=== PATIENT | female | born 1955 | race Caucasian/White ===

== ENCOUNTER 2016-12-17 10:31 | Inpatient (IN) | payer OTHER ==
[2016-12-17] MEDS ORDERED: ceFAZolin 2 GM/DEXTROSE 100 ML IV ONE (14:30)
[2016-12-17] MEDS ORDERED: PHENAZOPYRIDINE HCL 200 MG TAB PO ONE (14:30)
[2016-12-17] MEDS ORDERED: LR 1,000 ML IV ONE (14:30)
[2016-12-17 14:58] LABS: HEMATOCRIT 41.8 % (38.0-47.0); HEMOGLOBIN 13.8 g/dL (12.6-16.3); MEAN CELL HEMOGLOBIN 30.2 pg (27.9-34.1); MEAN CELL VOLUME 91.5 fL (81.5-99.8); RED BLOOD CELL COUNT 4.57 10^6/uL (4.18-5.33)
[2016-12-17 14:59] LABS: % IMMATURE GRANULYOCYTES 0.2 % (0.0-1.1); ABSOLUTE IMMATURE GRANULOCYTES 0.01 10^3/uL (0.00-0.10); ADD DIFF? NO; ADD MORPH? NO; ADD SCAN? NO; ATYPICAL LYMPHOCYTE FLAG 0 (0-99); FRAGMENT RBC FLAG 0 (0-99); LEFT SHIFT FLG 0 (0-99); LIPEMIA HEMOLYSIS FLAG 80 (0-99); MEAN PLATELET VOLUME 9.6 fL (8.7-11.7); PLATELET CLUMPS FLAG 0 (0-99); PLATELET COUNT 211 10^3/uL (150-400); RED CELL DISTRIBUTION WIDTH 13.9 % (11.5-15.2)
[2016-12-17] MEDS ORDERED: BUPIVACAINE 0.5% 30 ML SDV ONE (15:24)
[2016-12-17] MEDS ORDERED: BUPIVACAINE/EPI 0.5% 30 ML SDV ONE (15:25)
[2016-12-17] MEDS ORDERED: fentaNYL 100 MCG/2 ML INJ ONE ×8 (15:32→20:11)
[2016-12-17] MEDS ORDERED: PROPOFOL/EMULSION 500 MG/50 ML BOTTLE IV ONE (15:33)
[2016-12-17] MEDS ORDERED: LIDOCAINE HCL 160 MG/4 ML LTA KIT TP ONE (15:35)
[2016-12-17] MEDS ORDERED: ONDANSETRON 4 MG/2 ML VIAL ONE (15:36)
[2016-12-17] MEDS ORDERED: DEXAMETHASONE 4 MG/ML VIAL ONE ×2 (15:36)
[2016-12-17] MEDS ORDERED: ROCURONIUM 50 MG/5 ML VIAL ONE ×2 (15:36→16:29)
[2016-12-17] MEDS ORDERED: LIDOCAINE 2% 100 MG/5 ML SYR ONE (15:37)
[2016-12-17] MEDS ORDERED: MIDAZOLAM 2 MG/2 ML VIAL ONE (15:39)
[2016-12-17] MEDS ORDERED: HYDROmorphONE/DILAUDID 2 MG/ML INJ ONE (16:36)
[2016-12-17] MEDS ORDERED: PROPOFOL 200 MG/20 ML VIAL ONE ×2 (17:23→18:14)
[2016-12-17] MEDS ORDERED: DESFLURANE 240 ML BOTTLE IH ONE (18:20)
[2016-12-17] MEDS ORDERED: SUGAMMADEX SODIUM 200 MG/2 ML VIAL IVP ONE (18:29)
[2016-12-17] MEDS ORDERED: NALOXONE HCL 0.4 MG/ML INJ IVP PRN (18:46)
[2016-12-17] MEDS ORDERED: ONDANSETRON 4 MG/2 ML VIAL IVP PRN (18:47)
[2016-12-17] MEDS ORDERED: FENTANYL SL PRN ×2 (18:48→19:07)
[2016-12-17] MEDS ORDERED: valACYclovir 500 MG TAB PO PRN (18:48)
[2016-12-17] MEDS ORDERED: PHARMACY PAIN CONSULT 1 EA MISC PRN (18:52)
--- NOTE | 2016-12-17 18:52 | POSTOPPROG ---
Post Op Note Date of Operation: 12/17/16 Surgeon: Laura Akins Marketing Production Manager: karlene maciel Anesthesiologist: dung youssef Anesthesia: GET(General Endotracheal) Pre-op Diagnosis: colon cancer ovarian mass Post-op Diagnosis: same Indication: 61 yo with met colon cancer, ovarian mass, umbilical mass Procedure: ex lap, repair enterotomy, marcell, excise umbilical mass hysterectomy LSO Inf/Abcess present in the surg proc area at time of surgery?: Yes Depth: Organ Space EBL: 100-500 Specimen(s): abdominal wall mass, uterus, ovary, salpinx
[2016-12-17] MEDS ORDERED: HYDROmorphONE/DILAUDID 1 MG/ML SYR ONE ×4 (19:03→19:57)
[2016-12-17] MEDS ORDERED: DIAZEPAM 10 MG/2 ML SYR ONE (19:33)
[2016-12-17] MEDS: HYDROmorphONE/DILAUDID 6 MG/30 ML PCA IV PRN (20:44)
[2016-12-17] MEDS: oxyCODONE CR 30 MG TAB PO SCH (20:57)
[2016-12-17] MEDS: ZOLPIDEM TARTRATE 5 MG TAB PO PRN (21:47)
[2016-12-17] MEDS: LORazepam 1 MG TAB PO PRN (21:47)
[2016-12-17] MEDS: HYDROmorphONE/DILAUDID 4 MG TAB PO PRN ×2 (22:20→23:17)
[2016-12-17] MEDS ORDERED: hydrALAZINE 20 MG/ML VIAL IVP ONE (23:00)
[2016-12-18] MEDS: DIAZEPAM 10 MG/2 ML SYR IVP PRN ×2 (01:36→10:47)
[2016-12-18] MEDS: amLODIPine BESYLATE 5 MG TAB PO PRN ×2 (03:37→20:02)
[2016-12-18] MEDS: hydrALAZINE 20 MG/ML VIAL IVP PRN ×2 (04:19→10:47)
[2016-12-18] MEDS: ACETAMINOPHEN 325 MG TAB PO PRN ×2 (04:21→14:43)
[2016-12-18 05:26] LABS: % IMMATURE GRANULYOCYTES 0.3 % (0.0-1.1); ABSOLUTE IMMATURE GRANULOCYTES 0.03 10^3/uL (0.00-0.10); ADD DIFF? NO; ADD MORPH? NO; ADD SCAN? NO; ATYPICAL LYMPHOCYTE FLAG 0 (0-99); FRAGMENT RBC FLAG 0 (0-99); HEMATOCRIT 36.5 % (38.0-47.0); HEMOGLOBIN 12.4 g/dL (12.6-16.3); LEFT SHIFT FLG 20 (0-99); LIPEMIA HEMOLYSIS FLAG 90 (0-99); MEAN CELL HEMOGLOBIN 30.2 pg (27.9-34.1); MEAN CELL VOLUME 88.8 fL (81.5-99.8); MEAN PLATELET VOLUME 9.4 fL (8.7-11.7); PLATELET CLUMPS FLAG 0 (0-99); PLATELET COUNT 232 10^3/uL (150-400); RED BLOOD CELL COUNT 4.11 10^6/uL (4.18-5.33); RED CELL DISTRIBUTION WIDTH 13.9 % (11.5-15.2)
[2016-12-18 05:38] LABS: ANION GAP 10 mEq/L (8-16); CALCIUM 8.5 mg/dL (8.5-10.4); CARBON DIOXIDE 24 mEq/l (22-31); CHLORIDE 102 mEq/L (97-110); CREATININE 0.6 mg/dL (0.6-1.0); GLOMERULAR FILTRATION RATE > 60; GLUCOSE 194 mg/dL (70-100); POTASSIUM 3.5 mEq/L (3.5-5.2); SODIUM 136 mEq/L (134-144)
--- NOTE | 2016-12-18 06:15 | GOP ---
[f rep st] OPERATIVE REPORT DATE OF OPERATION: 12/17/2016 SURGEON: Laura Akins MD PHYSICIAN'S AIDE: Joel Ch MD, who was needed for his technical expertise and timely conclusion of the case. ANESTHESIOLOGIST: Dr. Mcdonough PREOPERATIVE DIAGNOSIS: Metastatic Colon Cancer with umbilical mass and left ovarian mass POSTOPERATIVE DIAGNOSIS: Metastatic Colon Cancer with umbilical mass and hydrosalpinx PROCEDURE PERFORMED: I performed exploratory laparotomy with lysis of adhesions , and repair of small-bowel enterotomy, and excision of abdominal wall mass. Dr. Ch assisted with all components of this portion. He also did hysterectomy with left salpingo-oophorectomy. FINDINGS: Her small bowel was adhesed to the mesh. She had a firm uterus and hydrosalpinx. SPECIMENS: Abdominal wall mass, uterus, salpinx, ovary. ESTIMATED BLOOD LOSS: 250 cc. INDICATIONS: The patient is a 61-year-old woman with metastatic colon cancer. She has bothersome abdominal wall mass because it is where her waistband hits. She is between clinical trials and would like to have this removed. She has also on her scans noted that her left ovarian mass was enlarging. For all details related to the hysterectomy and left salpingo-oophorectomy, please refer to Dr. Ch's operative note. DESCRIPTION OF PROCEDURE: The patient was brought into the operating room, placed supine on the table, and general anesthesia was administered. Her abdomen was prepped and draped in the usual sterile fashion. I excised her previous midline scar on the level of the umbilicus to the pubis. Just below her umbilicus she had a large abdominal mass. It is unclear if this was tumor or mesh or a combination of the two. Careful attention was made to dissect through the subcutaneous tissues, coming around this mass. Once we encountered Prolene suture, we then used Metzenbaum scissors. We carefully dissected with a combination of electrocautery and sharp dissection. Her linea alba were no longer apparent. We had to cut through mesh and rectus in order to enter the abdomen. Ultimately we were able to make a small incision into the peritoneal cavity. We continued our dissection. Small bowel was adhered to the abdominal wall and mesh. We performed adhesiolysis, removing several loops of bowel from the mesh. At one point I made an enterotomy. Contamination was quickly contained. I continued the dissection until this loop of bowel was free. I sewed it in a transverse fashion using 3-0 Vicryl and then I over sewed it with 3-0 Vicryl pop-offs. The lumen was patent. Attention was drawn to excise the entire abdominal wall mass. This included mesh, fascia, as well as the subcutaneous tissue. This was submitted to Pathology. The bowel was examined and no additional injuries were noted. Next, her bowel was packed cephalad and Dr. Ch was able to perform the hysterectomy and left salpingo- oophorectomy. I assisted in this portion of the case. Careful attention was made not to damage her previous anastomosis or her rectum. After his portion of the case was completed, irrigation was performed. Hemostasis was achieved. Uri was placed in the pelvis. Next, the fascia and mesh were closed with #1 Prolene using interrupted [id number] sutures. The subcutaneous tissue was closed with 0 Vicryl. Skin closed with mona. 4 x 4's and sterile dressing were applied. She tolerated the procedure well. SPECIMENS: Abdominal wall mass. /[id number]/MODL MTDD
[2016-12-18] MEDS: oxyCODONE CR 30 MG TAB PO SCH ×2 (08:21→20:03)
[2016-12-18] MEDS: HYDROmorphONE/DILAUDID 4 MG TAB PO PRN (08:54)
[2016-12-18] MEDS: NS 1,000 ML IV SCH (08:54)
--- NOTE | 2016-12-18 10:24 | SOAPPROG ---
SOAP Progress Note Assessment/Plan: Assessment: POD # 1 s/p ex lap with lysis of adhesions, repair of enterotomy, excision abdominal wall mass, hysterectomy with left salpingooophorectomy for metastatic colon cancer On chronic pain medications - appreciate pharmacy helping with this. I contacted anesthesia who will evaluate patient for epidural Hypertension - appreciate hospitalists seeing her. I had to give Hydralazine overnight Path pending Resp - cough deep breath Cards - tachycardic, likely due to pain, will monitor GI - Awaiting return of bowel function. Clears for now. Will likely advance soon Proph - allergic to heparin and lovenox so SCDS and ambulation for now CBC reviewed and appropriate for post op day #1 S: Pain is not controlled. 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
--- NOTE | 2016-12-18 10:37 | CPEKG ---
Heart Rate: 117 RR Interval: 513 P-R Interval: 196 QRSD Interval: 88 QT Interval: 272 QTC Interval: 380 P Plains: 48 QRS Plains: 20 T Wave Plains: 7 EKG Severity - BORDERLINE ECG - EKG Impression: SINUS TACHYCARDIA EKG Impression: BORDERLINE T ABNORMALITIES, ANTERIOR LEADS Electronically Signed By: David Rivera 18-Dec-2016 16:36:22
[2016-12-18] MEDS: HYDROmorphONE/DILAUDID 6 MG/30 ML PCA IV PRN (10:56)
--- NOTE | 2016-12-18 11:00 | GCON ---
[f rep st] CONSULTATION REFERRING PHYSICIAN: Laura Akins MD REASON FOR CONSULTATION: Management of hypertension and hyperglycemia. HISTORY OF PRESENT ILLNESS: The patient is a 61-year-old female with a past medical history of stage IV colon cancer diagnosed in 2010 who had an exploratory laparotomy with lysis of adhesions, repair of a small-bowel enterotomy, and excision of an abdominal wall mass with Dr. Akins and Dr. Ch. She also had a hysterectomy and a left salpingo-oophorectomy. She did well after surgery but developed significant hypertension. Her main issue is severe abdominal pain. Her pain is 10/10, even though she is using a WELLNESS TRAINER. She has a history of chronic pain with continuous narcotic use and dependency. Her pain has been difficult to manage in the postop setting. PAST MEDICAL HISTORY: 1. Stage IV colon cancer with metastases to the lung, liver, and pelvis. 2. Chronic pain with continuous narcotic use and dependency. PAST SURGICAL HISTORY: 1. Multiple abdominal ventral hernia repairs. 2. Hysterectomy, left salpingo-oophorectomy, and exploratory laparotomy performed on December 17, 2016. 3. Hemicolectomy with ileostomy take-down. 4. Placement of hepatic arterial pump for chemotherapy. No longer in place. SOCIAL HISTORY: She is originally from [place]. She is . She has a daughter who lives in the [place] area who is very supportive. She does not use alcohol, tobacco, or drug use. She lives independently. 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 FAMILY HISTORY: Her mom is alive; she suffered a stroke. Her father from Pick disease. ALLERGIES: Heparin. HOME MEDICATIONS: Include Norvasc 5 mg daily p.r.n., Valtrex 500 mg t.i.d. p.r.n., Ambien 10 mg p.o. q.h.s. p.r.n., Ativan 1 mg daily p.r.n., Ritalin 10 mg p.o. b.i.d., Dilaudid 8 to 16 mg p.o. q.6 hours, Oxy IR 30-60 mg q.6 hours p.r.n., OxyContin 60 mg p.o. b.i.d., fentanyl spray 1200 sublingual q.i.d. p.r.n. REVIEW OF SYSTEMS: A 10-point review of system was performed and was negative other than pertinent positives in the HPI and past medical history. PHYSICAL EXAMINATION: GENERAL: The patient is a 61-year-old female who appears very uncomfortable but falls asleep frequently during my interview. VITAL SIGNS: Blood pressure is 189/90, heart rate is 125, respiratory rate is 14, O2 sats on 3 L are 95%, temperature is 36.9 Celsius. EYES: Pupils are equal and reactive. EOMs are intact. ENT: She has normal ears. Hearing is intact. NECK: Trachea is midline. CARDIOVASCULAR: She is tachycardic but in a regular rhythm. No murmurs, rubs, or gallops noted. CHEST: Lungs normal respiratory effort. Clear without rales or rhonchi. ABDOMEN: Tender. Hypoactive bowel sounds noted throughout. SKIN: No rashes or ulcers. MUSCULOSKELETAL: Not evaluated. PSYCHIATRIC: She is alert and oriented to her situation but falls asleep throughout my conversation with her. DATA REVIEWED: Chemistry panel shows a sodium of 136, potassium of 3.5, CO2 of 24, BUN of 10, creatinine of 0.6, glucose of 194. CBC: White blood cell count is 10.96, hemoglobin 12.4, hematocrit of 36.5, platelet count of 232. ASSESSMENT/PLAN: 1. Hypertension: P.r.n. hydralazine has been ordered. I suspect this is secondary to her pain. Will continue to follow. 2. Tachycardia: Will get a 12-lead EKG to further evaluate. Also suspect she may be having some withdrawal from her pain medications, even though on a WELLNESS TRAINER and is getting her oral medications. She is currently not on her fentanyl spray. With history of cancer, could consider a CTA to rule out a pulmonary emboli if this is persistent. 3. Chronic pain with continuous narcotic use and dependency. Pharmacy has been asked to do an evaluation of her pain to help control it. In addition, Anesthesia has been notified to see if they can do an epidural to help control her pain. 4. Fever. Had one elevated temperature. Will continue monitoring. 5. Hyperglycemia. Most likely stress induced. Will check glucoses and check a hemoglobin A1C. 6. Deep vein thrombosis prophylaxis. She has a heparin allergy. Will order SCDs. 7. Stage IV colon cancer. She is following up with Oncology and is in a trial at this time. Thank you for this consultation. The hospitalists team will continue to follow her during her stay. /[id number]/MODL MTDD
[2016-12-18] MEDS ORDERED: fentaNYL 100 MCG/2 ML INJ ONE (11:09)
[2016-12-18] MEDS ORDERED: ROPIVACAINE HCL 20 MG/10 ML INJ EP ONE (11:12)
[2016-12-18] MEDS ORDERED: ONDANSETRON 4 MG/2 ML VIAL IVP PRN (12:10)
[2016-12-18] MEDS ORDERED: NARCOTIC DRIP BAG-TOTAL ALL TYPES EP PRN (12:10)
[2016-12-18] MEDS ORDERED: NALOXONE HCL 0.4 MG/ML INJ IVP PRN (12:10)
[2016-12-18] MEDS ORDERED: D50W 25 GM/50 ML SYR IVP PRN (12:32)
[2016-12-18] MEDS: DC NARCS MISC SCH (13:44)
[2016-12-18] MEDS: REGARDING ANTICOAG MISC SCH (13:44)
[2016-12-18] MEDS ORDERED: CALCIUM CARBONATE 500 MG CHEWABLE TAB PO PRN (15:51)
[2016-12-18] MEDS ORDERED: DEXMEDETOMIDINE HCL 400 MCG in NS 100 ML IV SCH (16:00)
[2016-12-18] MEDS: PANTOPRAZOLE SODIUM 40 MG in NS 100 ML IV SCH (16:28)
--- NOTE | 2016-12-18 16:37 | HOSPPROG ---
Hospitalist Progress Note Assessment/Plan: Patient seen and examined. Appears obtunded and writhing in pain. PE: fever, uncomfortable; abd soft, non-tender Discussed with Dr Akins. Impression: - s/p FLAQUITA, enterotomy repair, hysterectomy, oophorectomy - uncontrolled pain - SIRS, possible source abdominal - very high narcotic requirement - high risk for VTE Plan: - continue SDU level care - start precedex - start empiric Invanz - low threshold for CT scan - cont IVF - continue epidural - start low dose Xarelto for ppx (allergy to heparin) 35 mins direct patient care, face to face time spent from 3:40 to 3:15 Objective: Vital Signs Temp Pulse Resp BP Pulse Ox 37.9 C 119 H 22 H 159/74 H 94 12/18/16 15:44 12/18/16 15:44 12/18/16 15:44 12/18/16 15:44 12/18/16 15:44 Laboratory Results 12/18/16 05:15 12/18/16 05:15 12/17/16 12/18/16 12/19/16 05:59 05:59 05:59 Intake Total 2425 725 Output Total 4989 900 Balance -410 -175 ICD10 Worksheet Patient Problems: Problems Problem Status Onset Abdominal pain Acute Vomiting Acute
[2016-12-18] MEDS: ERTAPENEM 1 GM in NS 100 ML IV SCH (17:30)
[2016-12-18] MEDS: INSULIN LISPRO 100 UNIT/ML SC SCH (17:41)
[2016-12-18] MEDS: KETOROLAC 15 MG/1 ML SDV IVP SCH (17:42)
[2016-12-18] MEDS: LORazepam 1 MG TAB PO PRN (20:03)
[2016-12-18] MEDS: ZOLPIDEM TARTRATE 5 MG TAB PO PRN (20:03)
[2016-12-18] MEDS: HYDROmorph 10MCG/ML&BUP 0.1% in 100ML NS EP SCH (20:12)
[2016-12-19] MEDS: KETOROLAC 15 MG/1 ML SDV IVP SCH ×3 (00:55→11:29)
[2016-12-19 04:21] LABS: % IMMATURE GRANULYOCYTES 0.3 % (0.0-1.1); ABSOLUTE IMMATURE GRANULOCYTES 0.02 10^3/uL (0.00-0.10); ADD DIFF? NO; ADD MORPH? NO; ADD SCAN? NO; ATYPICAL LYMPHOCYTE FLAG 0 (0-99); FRAGMENT RBC FLAG 0 (0-99); HEMATOCRIT 27.9 % (38.0-47.0); HEMOGLOBIN 9.3 g/dL (12.6-16.3); LEFT SHIFT FLG 10 (0-99); LIPEMIA HEMOLYSIS FLAG 80 (0-99); MEAN CELL HEMOGLOBIN 30.7 pg (27.9-34.1); MEAN CELL HEMOGLOBIN CONCENTR. 33.3 g/dL (32.4-36.7); MEAN CELL VOLUME 92.1 fL (81.5-99.8); MEAN PLATELET VOLUME 8.9 fL (8.7-11.7); PLATELET CLUMPS FLAG 30 (0-99); PLATELET COUNT 205 10^3/uL (150-400); RED BLOOD CELL COUNT 3.03 10^6/uL (4.18-5.33); RED CELL DISTRIBUTION WIDTH 14.6 % (11.5-15.2)
[2016-12-19 04:52] LABS: ALANINE AMINOTRANSFERASE 50 IU/L (9-52); ALBUMIN 2.6 g/dL (3.5-5.0); ALKALINE PHOSPHATASE 91 IU/L (38-126); ANION GAP 6 mEq/L (8-16); ASPARTATE AMINOTRANSFERASE 29 IU/L (14-46); BILIRUBIN,TOTAL 0.4 mg/dL (0.1-1.4); CALCIUM 8.1 mg/dL (8.5-10.4); CARBON DIOXIDE 27 mEq/l (22-31); CHLORIDE 109 mEq/L (97-110); CREATININE 0.7 mg/dL (0.6-1.0); GLOMERULAR FILTRATION RATE > 60; GLUCOSE 82 mg/dL (70-100); POTASSIUM 3.6 mEq/L (3.5-5.2); SODIUM 142 mEq/L (134-144); TOTAL PROTEIN 4.9 g/dL (6.3-8.2)
[2016-12-19] MEDS: HYDROmorph 10MCG/ML&BUP 0.1% in 100ML NS EP SCH ×3 (06:27→22:10)
--- NOTE | 2016-12-19 07:18 | SOAPPROG ---
SOAP Progress Note Assessment/Plan: Assessment: 61yo F POD #2 s/p excision of umbilical mass and open lysis of adhesions, hysterectomy, LSO pain improved encouraged ambulation. PT/OT clear liquids incision CDI dressing if needed ok to tx to floor from surgical perspective Objective: Vital Signs Temp Pulse Resp BP Pulse Ox 37.0 C 102 H 18 122/67 H 93 12/19/16 04:00 12/19/16 04:00 12/19/16 04:00 12/19/16 04:00 12/19/16 04:00 Laboratory Results 12/19/16 03:54 12/19/16 03:54 12/18/16 12/19/16 12/20/16 05:59 05:59 05:59 Intake Total 6007 6136 Output Total 1722 6333 Balance -410 -37 ICD10 Worksheet Patient Problems: Problems Problem Status Onset Abdominal pain Acute Vomiting Acute
[2016-12-19] MEDS: INSULIN LISPRO 100 UNIT/ML SC SCH ×3 (07:53→18:21)
[2016-12-19] MEDS: ERTAPENEM 1 GM in NS 100 ML IV SCH (08:45)
[2016-12-19] MEDS: oxyCODONE CR 30 MG TAB PO SCH ×2 (08:49→21:26)
[2016-12-19] MEDS: PANTOPRAZOLE SODIUM 40 MG in NS 100 ML IV SCH (08:52)
[2016-12-19] MEDS: REGARDING ANTICOAG MISC SCH (08:53)
[2016-12-19] MEDS: DC NARCS MISC SCH (08:53)
[2016-12-19] MEDS ORDERED: RIVAROXABAN 10 MG TAB PO SCH (09:00)
[2016-12-19] MEDS ORDERED: FONDAPARINUX SODIUM 2.5 MG/0.5 ML SYR SC SCH (09:15)
--- NOTE | 2016-12-19 09:23 | HOSPPROG ---
Hospitalist Progress Note Assessment/Plan: Metastatic colon cancer with h/o hemicolectomy and ileostomy takedown - s/p FLAQUITA , hysterectomy and left salpingo-oopherectomy, POD #2. Post-op management per surgery. -Advance care -PT/OT, pt strongly urged to participate Chronic pain with continuous opioid dependence with poor post-op pain control - Came to SDU last night due to alternating obtundation / agitation, which is resolved. She did not require Precedex. Improved pain control with PCEA- dilaudid and bupivicaine, outpt Oxycontin and Oxycodone doses and Toradol. -Add low dose Neurontin Fever - treated empirically with Ertapenem, will continue while awaiting BCx's Hypertension - likely hastened by poor pain control yesterday. Improved today. -Cont Amlodipine, PRN Hydralazine Stress induced hyperglycemia - improved. DVT PPLX - Pt high risk with post-op state and cancer hx. Xarelto d/c'd after discussing with anesthesia given presence of epidural catheter and bleeding risk. 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 Reviewed with anesthesia and they do not recommend any NOAC's or Arixtra. They feel ASA would be safe. Cont SCD's. Encourage ambulation. Full code Dispo - cont inpt, return to med/surg Subjective: Pt reports high pain level, but vitals are improved. She is relaxed , alert and oriented. Tmax 38.6. +abdominal pain, no flatus or BM. No N/V. Objective: Vital Signs Temp Pulse Resp BP Pulse Ox 37.0 C 102 H 18 122/67 H 93 12/19/16 04:00 12/19/16 04:00 12/19/16 04:00 12/19/16 04:00 12/19/16 04:00 Laboratory Results 12/19/16 03:54 12/19/16 03:54 12/18/16 12/19/16 12/20/16 05:59 05:59 05:59 Intake Total 2425 2688 Output Total 5360 0495 Balance -410 -37 - Physical Exam Constitutional: no apparent distress Eyes: PERRL Ears, Nose, Mouth, Throat: moist mucous membranes Cardiovascular: regular rate and rhythym Respiratory: no respiratory distress, clear to auscultation Gastrointestinal: normoactive bowel sounds, other (soft, diffusely TTP, pain out of proportion to exam, no r/r/g) Skin: warm Musculoskeletal: full muscle strength Neurologic: AAOx3 Psychiatric: anxious ICD10 Worksheet Patient Problems: Problems Problem Status Onset Abdominal pain Acute Vomiting Acute
[2016-12-19] MEDS ORDERED: POLYETHYLENE GLYCOL 3350 17 GM PKT PO PRN (09:26)
[2016-12-19 09:35] LABS: HEMOGLOBIN A1C 5.8 % (4.0-6.0)
[2016-12-19] MEDS: ASPIRIN 325 MG TAB PO SCH (11:29)
[2016-12-19] MEDS: GABAPENTIN 100 MG CAP PO SCH ×2 (15:15→21:26)
[2016-12-19] MEDS: ZOLPIDEM TARTRATE 5 MG TAB PO PRN (21:26)
[2016-12-19] MEDS: LORazepam 1 MG TAB PO PRN (21:26)
[2016-12-20] MEDS: NS 1,000 ML IV SCH ×3 (03:15→21:16)
[2016-12-20 06:26] LABS: % IMMATURE GRANULYOCYTES 0.4 % (0.0-1.1); ABSOLUTE IMMATURE GRANULOCYTES 0.02 10^3/uL (0.00-0.10); ADD DIFF? NO; ADD MORPH? NO; ADD SCAN? NO; ATYPICAL LYMPHOCYTE FLAG 10 (0-99); FRAGMENT RBC FLAG 0 (0-99); HEMATOCRIT 26.4 % (38.0-47.0); HEMOGLOBIN 8.6 g/dL (12.6-16.3); LEFT SHIFT FLG 0 (0-99); LIPEMIA HEMOLYSIS FLAG 80 (0-99); MEAN CELL HEMOGLOBIN 30.4 pg (27.9-34.1); MEAN CELL HEMOGLOBIN CONCENTR. 32.6 g/dL (32.4-36.7); MEAN CELL VOLUME 93.3 fL (81.5-99.8); MEAN PLATELET VOLUME 9.2 fL (8.7-11.7); PLATELET CLUMPS FLAG 0 (0-99); PLATELET COUNT 175 10^3/uL (150-400); RED BLOOD CELL COUNT 2.83 10^6/uL (4.18-5.33); RED CELL DISTRIBUTION WIDTH 14.3 % (11.5-15.2)
--- NOTE | 2016-12-20 06:46 | SOAPPROG ---
SOAP Progress Note Assessment/Plan: Assessment: Plan: POD#3 s/p ex-lap, FLAQUITA, adhesiolysis and hyst - Pain an issue, doesnt appear like the epidural is working (other than numbing her legs) defer to anesthesia, but would shut off in favor of IV narcotics. - Tolerating clears, endorses some flatus. Will see how she does htis AM but if continues to progress, would ADAT - Needs to get OOB and ambulate, using epidural as excuse that she cannot. 12/20/16 06:44 Objective: Vital Signs Temp Pulse Resp BP Pulse Ox 36.9 C 83 16 129/77 H 96 12/20/16 04:00 12/20/16 06:26 12/20/16 06:26 12/20/16 06:26 12/20/16 06:26 Laboratory Results 12/20/16 06:08 12/19/16 03:54 12/19/16 12/20/16 12/21/16 05:59 05:59 05:59 Intake Total 8934 803 Output Total 7470 0672 Balance -37 -1750 ICD10 Worksheet Patient Problems: Problems Problem Status Onset Abdominal pain Acute Vomiting Acute
[2016-12-20] MEDS: GABAPENTIN 100 MG CAP PO SCH ×3 (08:56→21:15)
[2016-12-20] MEDS: ASPIRIN 325 MG TAB PO SCH (08:56)
[2016-12-20] MEDS: oxyCODONE CR 30 MG TAB PO SCH ×2 (08:56→21:15)
[2016-12-20] MEDS: PANTOPRAZOLE SODIUM 40 MG TAB PO SCH (08:56)
[2016-12-20] MEDS: ERTAPENEM 1 GM in NS 100 ML IV SCH (08:57)
[2016-12-20] MEDS: INSULIN LISPRO 100 UNIT/ML SC SCH ×3 (08:58→18:31)
[2016-12-20] MEDS: REGARDING ANTICOAG MISC SCH (09:00)
[2016-12-20] MEDS: DC NARCS MISC SCH (09:25)
--- NOTE | 2016-12-20 10:45 | SOAPPROG ---
CARTER Progress Note Assessment/Plan: Assessment: Currently rating pain as a 9/10. Not yet working with PT/OT. She has a level of L2-3 so I suspect epidural is probably contributing to her pain control as she is getting less oral medications than she takes at home. Prior to admission she endorsed continuous pain of 8/10. Plan: I will turn the epidural rate up to 10cc/hr. Discussed replacing epidural but given the challenge in placing the first, I am hesitant to pull and replace. I would encourage administration of PRN oxycodone-consider making this scheduled 60mg Q6 Hrs-I see she got it this morning. At a minimum she should be getting her home dose of OxyContin (60 mg BID) and oxycodone. Encourage multimodel analgesia with acetaminophen and Celebrex unless contraindicated. Encouraged working with PT/OT. Subjective: Patient seen and examined on the floor. Doing about the same as yesterday. Currently rating pain a 9/10 but appearing in no distress. She doesn't believe epidural to be contributing significantly to her pain relief but on my evaluation last night-she received a bolus off the epidural pump with some relief that "allowed her to sleep". Objective: Vital Signs Temp Pulse Resp BP Pulse Ox 37.1 C 88 18 127/64 H 91 L 12/20/16 08:00 12/20/16 08:00 12/20/16 08:00 12/20/16 08:00 12/20/16 08:00 Laboratory Results 12/20/16 06:08 12/19/16 03:54 12/19/16 12/20/16 12/21/16 05:59 05:59 05:59 Intake Total 0178 879 Output Total 8750 4026 Balance -37 -1750 Physical Exam - Physical Exam Neuro/Psych: motor weakness (L2-3 BILAT LEVEL) ICD10 Worksheet Patient Problems: Problems Problem Status Onset Abdominal pain Acute Vomiting Acute Physical Exam - Physical Exam General Appearance: no apparent distress Neuro/Psych: other
[2016-12-20] MEDS: HYDROmorph 10MCG/ML&BUP 0.1% in 100ML NS EP SCH ×3 (12:34→21:15)
[2016-12-20] MEDS ORDERED: oxyCODONE IR 5 MG TAB PO PRN (14:01)
--- NOTE | 2016-12-20 14:06 | HOSPPROG ---
Hospitalist Progress Note Assessment/Plan: #Acute on chronic pain -complicated by oversedation earlier in stay -spoke with Anesthesiology today. Increase in epidural is minimal and should not contribute. They will try to wean off epidural tomorrow -cont home Oxycontin. Daughter very concerned with oversedation; change oxy to PRN. No Fentanyl spray #Metastatic colon cancer: h/o hemicolectomy and take down. s/p FLAQUITA, hysterectomy , left salpingo-oopherectemy -needs to ambulate #Fever: afebrile >48hr. Blood culture negative. Cont Ertapenem #Accelerated HTN: pain contributing. Cont home meds #Diet: clear #DVT ppx: SCDS #Disp: warrants inpt admission with acute on chronic pain. Cont IV abx Subjective: feel like a preeti truck hit her in stomach Objective: Vital Signs Temp Pulse Resp BP Pulse Ox 36.9 C 94 18 125/85 H 94 12/20/16 12:00 12/20/16 12:00 12/20/16 12:00 12/20/16 12:00 12/20/16 12:00 Laboratory Results 12/20/16 06:08 12/19/16 03:54 12/19/16 12/20/16 12/21/16 05:59 05:59 05:59 Intake Total 2688 700 Output Total 3152 2860 1150 Balance -37 1750 -1150 - Physical Exam Constitutional: no apparent distress Eyes: PERRL Ears, Nose, Mouth, Throat: moist mucous membranes Cardiovascular: regular rate and rhythym, no murmur, rub, or gallop Respiratory: no respiratory distress Gastrointestinal: other (abdominal incision stapled. C/D/I. diffuse TTP) Genitourinary: no bladder fullness, solares in urethra Skin: warm Musculoskeletal: full muscle strength Neurologic: CN II-XII Intact, other (min sensation to touch over legs) ICD10 Worksheet Patient Problems: Problems Problem Status Onset Abdominal pain Acute Vomiting Acute
--- NOTE | 2016-12-20 16:42 | SOAPPROG ---
CARTER Progress Note Assessment/Plan: Assessment: doing okay this p.m. Plan: advance diet 12/20/16 16:42 Objective: Vital Signs Temp Pulse Resp BP Pulse Ox 37.2 C 84 18 134/68 H 95 12/20/16 16:35 12/20/16 16:35 12/20/16 16:35 12/20/16 16:35 12/20/16 16:35 Laboratory Results 12/20/16 06:08 12/19/16 03:54 12/19/16 12/20/16 12/21/16 05:59 05:59 05:59 Intake Total 0220 700 Output Total 9870 4418 4564 Balance -37 -1750 -1150 ICD10 Worksheet Patient Problems: Problems Problem Status Onset Abdominal pain Acute Vomiting Acute
[2016-12-20] MEDS: LORazepam 1 MG TAB PO PRN (22:30)
[2016-12-20] MEDS: ZOLPIDEM TARTRATE 5 MG TAB PO PRN (22:30)
[2016-12-21] MEDS: HYDROmorph 10MCG/ML&BUP 0.1% in 100ML NS EP SCH ×3 (03:39→16:56)
[2016-12-21] MEDS: NS 1,000 ML IV SCH (06:17)
[2016-12-21 06:30] LABS: HEMATOCRIT 24.9 % (38.0-47.0); HEMOGLOBIN 8.2 g/dL (12.6-16.3); MEAN CELL HEMOGLOBIN 30.4 pg (27.9-34.1); MEAN CELL HEMOGLOBIN CONCENTR. 32.9 g/dL (32.4-36.7); MEAN CELL VOLUME 92.2 fL (81.5-99.8); RED BLOOD CELL COUNT 2.7 10^6/uL (4.18-5.33); RED CELL DISTRIBUTION WIDTH 13.6 % (11.5-15.2)
[2016-12-21 07:11] LABS: ANION GAP 4 mEq/L (8-16); CALCIUM 7.8 mg/dL (8.5-10.4); CARBON DIOXIDE 28 mEq/l (22-31); CHLORIDE 108 mEq/L (97-110); CREATININE 0.7 mg/dL (0.6-1.0); GLOMERULAR FILTRATION RATE > 60; GLUCOSE 93 mg/dL (70-100); POTASSIUM 3.3 mEq/L (3.5-5.2); SODIUM 140 mEq/L (134-144)
[2016-12-21] MEDS: INSULIN LISPRO 100 UNIT/ML SC SCH ×3 (07:51→19:10)
[2016-12-21] MEDS: oxyCODONE CR 30 MG TAB PO SCH ×2 (09:07→21:13)
[2016-12-21] MEDS: GABAPENTIN 100 MG CAP PO SCH ×3 (09:07→21:45)
[2016-12-21] MEDS: ASPIRIN 325 MG TAB PO SCH (09:07)
[2016-12-21] MEDS: ERTAPENEM 1 GM in NS 100 ML IV SCH (09:08)
[2016-12-21] MEDS: PANTOPRAZOLE SODIUM 40 MG TAB PO SCH (09:08)
[2016-12-21] MEDS: REGARDING ANTICOAG MISC SCH (09:11)
--- NOTE | 2016-12-21 14:00 | SOAPPROG ---
SOAP Progress Note Assessment/Plan: Assessment: POD # 4 S/P excision of periumbilical mass, abdominal hysterectomy with left salpingoophorectomy for left adnexal mass which was a hydrosalpinx. Likely tumor on posterior cervix extending into vagina. Pathology pending. Savanna has made slow progress secondary to pain control issues. Plan: 12/21/16 13:56 I think we can discontinue epidural and switch to oral analgesia so she can ambulate. Advance diet. Subjective: Pain controlled with epidural. Patient hungry. Had insensible bowel movement. Has not been out of bed yet. Continues to pass flatus. Objective: Vital Signs Temp Pulse Resp BP Pulse Ox 36.8 C 86 18 142/79 H 95 12/21/16 11:39 12/21/16 11:39 12/21/16 11:39 12/21/16 11:39 12/21/16 11:39 Laboratory Results 12/21/16 06:18 12/21/16 06:18 12/20/16 12/21/16 12/22/16 05:59 05:59 05:59 Intake Total 700 3500 Output Total 2450 4500 1350 Balance -1750 -1000 -1350 - Pending Discharge Pending Discharge Within 48 Hours: Yes Pending Discharge Date: 12/23/16 Pending Discharge Time: 11:00 Physical Exam - Physical Exam General Appearance: WD/WN, alert, no apparent distress Respiratory: lungs clear Cardiac/Chest: regular rate, rhythm Abdomen: normal bowel sounds, soft (Incision clean, dry, and intact.) ICD10 Worksheet Patient Problems: Problems Problem Status Onset Colon cancer Acute Hydrosalpinx Acute Abdominal pain Acute Vomiting Acute - ICD10 Problem Qualifiers (1) Hydrosalpinx (2) Colon cancer Qualifiers: Colon location: sigmoid Qualified Code(s): C18.7 - Malignant neoplasm of sigmoid colon
--- NOTE | 2016-12-21 14:30 | SOAPPROG ---
SOAP Progress Note Assessment/Plan: Assessment: doing okay this p.m. Plan: advance diet 12/20/16 16:42 12/21/16 14:29 COMFORTABLE / AFEBRILE/ WOUND OKAY/ HAS BEEN IMMOBILE SECONDARY TO THE EPIDURAL / POSITIVE BMS PLAN IS TO WEAN OFF THE EPIDURAL AND RESTORE A PAIN MEDICINES AND ADVANCE HER DIET Objective: Vital Signs Temp Pulse Resp BP Pulse Ox 36.8 C 92 18 151/85 H 94 12/21/16 11:39 12/21/16 14:08 12/21/16 14:08 12/21/16 14:08 12/21/16 14:08 Laboratory Results 12/21/16 06:18 12/21/16 06:18 12/20/16 12/21/16 12/22/16 05:59 05:59 05:59 Intake Total 700 3500 Output Total 2450 4500 1350 Balance -1750 -1000 -1350 ICD10 Worksheet Patient Problems: Problems Problem Status Onset Colon cancer Acute Hydrosalpinx Acute Abdominal pain Acute Vomiting Acute
--- NOTE | 2016-12-21 14:58 | SOAPPROG ---
SOAP Progress Note Assessment/Plan: Assessment: Subjectively much better today. Agrees to begin titrating down epidural and ramping up PT/OT as tolerated. Plan: Will decrease epidural rate to 6cc/hr and decrease bolus freq to Q20-min PRN. I ordered increase in IR Oxycodone Q6 HR PRN from 60mg to 75mg. Consider making this scheduled as she takes 60mg of Oxycodone PRN at home in addition to the 60mg of Oxycontin BID-will defer that decision to primary team. Continue ASA for prophylaxis, continue Celebrex and gabapentin. Ok with low dose APAP. Intend to d/c epidural tomorrow or Thursday. Subjective: Patient seen and examined this afternoon on floor. In better spirits today. Working with therapy at time of visit. Endorses "numb legs" better pain control overnight. Objective: Vital Signs Temp Pulse Resp BP Pulse Ox 36.8 C 92 18 151/85 H 94 12/21/16 11:39 12/21/16 14:08 12/21/16 14:08 12/21/16 14:08 12/21/16 14:08 Laboratory Results 12/21/16 06:18 12/21/16 06:18 12/20/16 12/21/16 12/22/16 05:59 05:59 05:59 Intake Total 700 3500 Output Total 2450 4500 1350 Balance -1750 -1000 -1350 Current epidural running at 10cc/hr with 5 cc Q15min PRN bolus. ICD10 Worksheet Patient Problems: Problems Problem Status Onset Colon cancer Acute Hydrosalpinx Acute Abdominal pain Acute Vomiting Acute
--- NOTE | 2016-12-21 15:05 | GOP ---
[f rep st] OPERATIVE REPORT DATE OF OPERATION: 12/17/2016 SURGEON: Joel Ch MD MOTION PICTURE CRITIC: Laura Akins MD. ANESTHESIA: General. PREOPERATIVE DIAGNOSIS: 1. Metastatic colon cancer. 2. Left adnexal mass. 3. Cervical and vaginal mass. POSTOPERATIVE DIAGNOSIS: 1. Metastatic colon cancer. 2. Left adnexal mass. 3. Cervical and vaginal mass. 4. Left hydrosalpinx. PROCEDURE PERFORMED: FINDINGS: SPECIMENS: Uterus, left tube, and ovary. ESTIMATED BLOOD LOSS: 50 mL. DESCRIPTION OF PROCEDURE: The patient was taken to the operating room where she was administered ge neral anesthesia. She was then prepared and draped in a normal sterile fashion. Dr. Laura sanchez performed excision of the abdominal wall mass with me as her public health training assistant. Please see a copy of her dictated note. Once that was completed, we made a midline incision through the fascia and peritone um. An extensive lysis of bowel adhesions was performed by Dr. Akins. Once this was accomplished, the bowel was packed in the upper abdomen and the O'Ruiz-O'Mchugh retractor placed. The pelvis was examined. She was noted to have a large left hydrosalpinx. The posterior aspect of the uterus and cervix was adherent to the distal rectum. This was taken down bluntly by digital dissection. T he adhesions on the right aspect of the uterus from her prior right salpingo-oophorectomy also were taken down bluntly and sharply. The left round ligament was divided. The anterior broad ligament was incised to the bifurcation of the left common iliac vessels. A window was created in the posterior leaf to skeletonize the infund ibulopelvic vessels. They were then clamped, cut, and divided. The anterior lip of the broad ligam ent was incised over the left uterine vessels and across the cervix. The cervix was gently dissecte d off the cervix and upper vagina. The left uterine vasculature was then clamped, cut, and divided. Subsequent bites were taken on the parametrium until the distal cervix was encountered. The right parametrium also was then clamped, cut, and divided until the cervix was encountered. Two Zeppelin clamps were placed across the upper vagina and the specimen excised and sent to Pathology. The vag inal cuff was then closed with interrupted sutures of 0 Vicryl. The pelvis was then irrigated with sterile saline. Several small vaginal cuff bleeders were encountered and were controlled with both suture and cautery. Once hemostasis was present, the retractor and the laparotomy sponges were argelia baron. The fascia was closed with 1 Prolene in [id number] sutures by Dr. Akins. The subcutaneou s tissue was irrigated with sterile saline and hemostasis was present. The subcutaneous tissue was reapproximated with 2-0 Vicryl suture and skin closed with mona. Anesthesia was reversed. The p atient was taken to the PACU awake in stable condition. COMPLICATIONS: None. DISPOSITION: Patient is stable to PACU. Copy requested to: [facility] [place] /[id number]/MODL
[2016-12-21] MEDS ORDERED: POTASSIUM CL 20 MEQ TAB PO ONE (16:46)
--- NOTE | 2016-12-21 16:47 | HOSPPROG ---
Hospitalist Progress Note Assessment/Plan: #Acute on chronic pain: improved -epidural decreased to 6cc today. Increased PRN oxy to 75mg PRN. No e/o opioid toxicity #Metastatic colon cancer: h/o hemicolectomy and take down. s/p FLAQUITA, hysterectomy , left salpingo-oopherectemy -needs to ambulate #Fever: afebrile >48hr. Blood culture negative. Cont Ertapenem #Accelerated HTN: pain contributing. Cont home meds #Acute blood loss anemia: 2/2 surgery #Diet: clear #DVT ppx: SCDs, ASA #Disp: warrants inpt admission with acute on chronic pain. Cont IV abx Subjective: pain improved today. Had BM. Objective: Vital Signs Temp Pulse Resp BP Pulse Ox 36.8 C 85 18 115/87 H 97 12/21/16 11:39 12/21/16 16:20 12/21/16 16:20 12/21/16 16:20 12/21/16 16:20 Laboratory Results 12/21/16 06:18 12/21/16 06:18 12/20/16 12/21/16 12/22/16 05:59 05:59 05:59 Intake Total 700 3500 Output Total 2450 4500 1350 Balance -1750 -1000 -1350 - Physical Exam Constitutional: obese Eyes: PERRL Ears, Nose, Mouth, Throat: moist mucous membranes Cardiovascular: regular rate and rhythym, no murmur, rub, or gallop Respiratory: no respiratory distress, no rales or rhonchi Gastrointestinal: other (surgical incision stapled, but healing well. TTP diffusely but less than yesterday ) Genitourinary: solares in urethra Skin: warm Musculoskeletal: full muscle strength Neurologic: AAOx3, CN II-XII Intact, other (no sensation to light touch in legs ) Psychiatric: interacting appropriately ICD10 Worksheet Patient Problems: Problems Problem Status Onset Colon cancer Acute Hydrosalpinx Acute Abdominal pain Acute Vomiting Acute
[2016-12-21] MEDS: ZOLPIDEM TARTRATE 5 MG TAB PO PRN (21:45)
[2016-12-21] MEDS: LORazepam 1 MG TAB PO PRN (21:45)
[2016-12-22] MEDS: NS 1,000 ML IV SCH (01:07)
[2016-12-22 06:18] LABS: HEMATOCRIT 25.8 % (38.0-47.0); HEMOGLOBIN 8.5 g/dL (12.6-16.3); MEAN CELL HEMOGLOBIN 30.4 pg (27.9-34.1); MEAN CELL HEMOGLOBIN CONCENTR. 32.9 g/dL (32.4-36.7); MEAN CELL VOLUME 92.1 fL (81.5-99.8); RED BLOOD CELL COUNT 2.8 10^6/uL (4.18-5.33); RED CELL DISTRIBUTION WIDTH 13.4 % (11.5-15.2)
[2016-12-22 06:38] LABS: ANION GAP 3 mEq/L (8-16); CALCIUM 8.1 mg/dL (8.5-10.4); CARBON DIOXIDE 28 mEq/l (22-31); CHLORIDE 109 mEq/L (97-110); CREATININE 0.6 mg/dL (0.6-1.0); GLOMERULAR FILTRATION RATE > 60; GLUCOSE 89 mg/dL (70-100); POTASSIUM 3.7 mEq/L (3.5-5.2); SODIUM 140 mEq/L (134-144)
[2016-12-22] MEDS: ERTAPENEM 1 GM in NS 100 ML IV SCH (08:10)
[2016-12-22] MEDS: ASPIRIN 325 MG TAB PO SCH (08:11)
[2016-12-22] MEDS: oxyCODONE CR 30 MG TAB PO SCH ×2 (08:11→20:43)
[2016-12-22] MEDS: GABAPENTIN 100 MG CAP PO SCH ×3 (08:11→20:44)
[2016-12-22] MEDS: PANTOPRAZOLE SODIUM 40 MG TAB PO SCH (08:11)
[2016-12-22] MEDS: INSULIN LISPRO 100 UNIT/ML SC SCH ×3 (08:32→18:24)
[2016-12-22] MEDS: REGARDING ANTICOAG MISC SCH (10:35)
--- NOTE | 2016-12-22 10:40 | SOAPPROG ---
CARTER Progress Note Assessment/Plan: Assessment: Some increased pain with d/c'ing epidural. But overall doing ok. Plan: I pulled the epidural at 09. I ordered a further increase in IR Oxycodone Q6 HR PRN from 75mg to 90mg. ASA for prophylaxis, for now. Could start Coumadin now for prophylaxis, Xarelto at 6-hr, fondaparinux at 24 hrs post pulling epidural. Avoid heparin given her allergy. Continue Celebrex and gabapentin. Ok with low dose APAP. 12/22/16 10:35 Subjective: Patient seen and examined this morning on the floor. Doing well. Epidural has been off since "around midnight." Eating breakfast, in good spirits. Objective: Vital Signs Temp Pulse Resp BP Pulse Ox 36.4 C 73 16 125/58 H 93 12/22/16 09:00 12/22/16 09:00 12/22/16 09:00 12/22/16 09:00 12/22/16 09:00 Laboratory Results 12/22/16 06:11 12/22/16 06:11 12/21/16 12/22/16 12/23/16 05:59 05:59 05:59 Intake Total 3500 2318 Output Total 4500 8010 Balance -3017 -0004 ICD10 Worksheet Patient Problems: Problems Problem Status Onset Colon cancer Acute Hydrosalpinx Acute Abdominal pain Acute Vomiting Acute
--- NOTE | 2016-12-22 14:21 | HOSPPROG ---
Hospitalist Progress Note Assessment/Plan: # acute on chronic pain s/p surgery - epidural removed - outpatient oxy IR increased from 60mg Q6 to 90mg Q6 - cont oxycontin 60mg BID - cont cathleen 100 tid, celebrex 200 bid, apap # tachycardia - check ECG; no CP, SOB or hypoxia to indicate PE at this point; no evidence of worsening infection # fever - unclear if infection is an issue - check procalcitonin, cont invanz for now # metastatic colon cancer - s/p hemicolectomy, FLAQUITA, hysterectomy, left salpingo- oopherectemy # ABLA - d/t surgery # htn - amlodipine, hydralazine iv # dvt ppx - asa for now, start xarelto tomorrow Subjective: epidural removed; still complaining of abd pain but not significantly worse from before. tachycardic, but no CP or SOB Objective: Vital Signs Temp Pulse Resp BP Pulse Ox 36.5 C 123 H 16 136/94 H 95 12/22/16 12:45 12/22/16 12:45 12/22/16 12:45 12/22/16 12:45 12/22/16 12:45 Laboratory Results 12/22/16 06:11 12/22/16 06:11 12/21/16 12/22/16 12/23/16 05:59 05:59 05:59 Intake Total 3500 2318 Output Total 4500 4700 1100 Balance -2685 -3964 -6280 chart reviewed - Physical Exam Constitutional: no apparent distress, appears nourished Cardiovascular: no murmur, rub, or gallop, tachycardia Respiratory: no respiratory distress, no rales or rhonchi, clear to auscultation Gastrointestinal: normoactive bowel sounds, no palpable masses, other (soft, incisions and mona in place; ), No ascites ICD10 Worksheet Patient Problems: Problems Problem Status Onset Abdominal pain Acute Vomiting Acute Hydrosalpinx Acute Colon cancer Acute
--- NOTE | 2016-12-22 14:53 | SOAPPROG ---
SOAP Progress Note Assessment/Plan: Assessment: 61yo F POD #5 s/p excision of umbilical mass and open lysis of adhesions, hysterectomy, LSO Epidural removed this morning - PO pain meds per hospitalists Solares removal today Tolerating regular diet Passing flatus, having BMs Increased ambulation with PT/OT, walking to and from the bathroom Dispo: likely home in 1-2 days if pain controlled S: epidural removed this morning and reports pain is not adequately controlled yet. She is eating well and walking more. Happy to have solares removed and go home soon O: Laying in bed, comfortable, NAD Clear to auscultation bilaterally, no increased work of breathing Regular rate and rhythm, no peripheral edema + bowel sounds, soft, appropriately tender around surgical incision Incision clean, dry and intact without evidence of infection Objective: Vital Signs Temp Pulse Resp BP Pulse Ox 36.5 C 123 H 16 136/94 H 95 12/22/16 12:45 12/22/16 12:45 12/22/16 12:45 12/22/16 12:45 12/22/16 12:45 Laboratory Results 12/22/16 06:11 12/22/16 06:11 12/21/16 12/22/16 12/23/16 05:59 05:59 05:59 Intake Total 3500 2318 Output Total 4500 4700 1100 Balance -1000 -2382 -1100 ICD10 Worksheet Patient Problems: Problems Problem Status Onset Colon cancer Acute Hydrosalpinx Acute Abdominal pain Acute Vomiting Acute
--- NOTE | 2016-12-22 14:54 | CPEKG ---
Heart Rate: 95 RR Interval: 632 P-R Interval: 184 QRSD Interval: 82 QT Interval: 336 QTC Interval: 423 P [place]: 37 QRS [place]: 26 T Wave Plymouth: 38 EKG Severity - NORMAL ECG - EKG Impression: SINUS RHYTHM Electronically Signed By: Lucas Gtz 23-Dec-2016 12:36:30
[2016-12-22] MEDS: LORazepam 1 MG TAB PO PRN (20:43)
[2016-12-22] MEDS: ZOLPIDEM TARTRATE 5 MG TAB PO PRN (20:43)
[2016-12-23 06:42] LABS: HEMATOCRIT 24.9 % (38.0-47.0); HEMOGLOBIN 8.3 g/dL (12.6-16.3); MEAN CELL HEMOGLOBIN 30.2 pg (27.9-34.1); MEAN CELL HEMOGLOBIN CONCENTR. 33.3 g/dL (32.4-36.7); MEAN CELL VOLUME 90.5 fL (81.5-99.8); RED BLOOD CELL COUNT 2.75 10^6/uL (4.18-5.33)
[2016-12-23 07:22] LABS: ANION GAP 6 mEq/L (8-16); CALCIUM 8.2 mg/dL (8.5-10.4); CARBON DIOXIDE 28 mEq/l (22-31); CHLORIDE 107 mEq/L (97-110); CREATININE 0.7 mg/dL (0.6-1.0); GLOMERULAR FILTRATION RATE > 60; GLUCOSE 120 mg/dL (70-100); POTASSIUM 3.3 mEq/L (3.5-5.2); SODIUM 141 mEq/L (134-144)
[2016-12-23 08:30] VITALS: BP 159/71; PULSE 97; RESP 18; TEMP 98.3; O2SAT 97
[2016-12-23] MEDS: GABAPENTIN 100 MG CAP PO SCH (08:36)
[2016-12-23] MEDS: ASPIRIN 325 MG TAB PO SCH (08:36)
[2016-12-23] MEDS: oxyCODONE CR 30 MG TAB PO SCH (08:36)
[2016-12-23] MEDS: PANTOPRAZOLE SODIUM 40 MG TAB PO SCH (08:36)
[2016-12-23] MEDS: INSULIN LISPRO 100 UNIT/ML SC SCH ×2 (08:37→12:56)
--- NOTE | 2016-12-23 08:44 | SOAPPROG ---
SOAP Progress Note Assessment/Plan: Assessment: 61yo F POD #6 s/p excision of umbilical mass and open lysis of adhesions, hysterectomy, LSO Pain control improving Voiding well after solares removed Tolerating regular diet Passing flatus, having BMs Increased ambulation with PT/OT, walking to and from the bathroom We will reach out to her pain specialist to prescribe pain meds for home Dispo: home this afternoon. seen with dr. phelps S: pain better controlled overnight. complaining of bruising O: Laying in bed, comfortable, NAD no increased work of breathing no peripheral edema + bowel sounds, soft, appropriately tender around surgical incision Incision clean, dry and intact without evidence of infection Objective: Vital Signs Temp Pulse Resp BP Pulse Ox 36.5 C 92 16 131/70 H 94 12/23/16 05:50 12/23/16 05:50 12/23/16 05:50 12/23/16 05:50 12/23/16 05:50 Laboratory Results 12/23/16 06:30 12/23/16 06:30 12/22/16 12/23/16 12/24/16 05:59 05:59 05:59 Intake Total 2318 2900 Output Total 1290 8110 Balance -2382 180 ICD10 Worksheet Patient Problems: Problems Problem Status Onset Colon cancer Acute Hydrosalpinx Acute Abdominal pain Acute Vomiting Acute
--- NOTE | 2016-12-23 11:22 | HOSPPROG ---
Hospitalist Progress Note Assessment/Plan: # acute on chronic pain s/p surgery - epidural removed - outpatient oxy IR increased from 60mg Q6 to 90mg Q6 - cont oxycontin 60mg BID - cont cathleen 100 tid, celebrex 200 bid, apap - will f/u Dr Benitez on Thursday post-dc for ongoing management; discussed with Dr Benitez and Dr Akins # tachycardia, sinus - resolved # fever - abx stopped # metastatic colon cancer - s/p hemicolectomy, FLAQUITA, hysterectomy, left salpingo- oopherectemy # ABLA - d/t surgery # htn - amlodipine, hydralazine iv # dispo - dc today Subjective: worried about blisters on her back Objective: Vital Signs Temp Pulse Resp BP Pulse Ox 36.8 C 97 18 159/71 H 97 12/23/16 08:28 12/23/16 08:28 12/23/16 08:28 12/23/16 08:28 12/23/16 08:28 Laboratory Results 12/23/16 06:30 12/23/16 06:30 12/22/16 12/23/16 12/24/16 05:59 05:59 05:59 Intake Total 2318 2900 Output Total 4700 2720 Balance -2382 180 ECG personally reviewed - sinus - Physical Exam Constitutional: obese Cardiovascular: regular rate and rhythym, no murmur, rub, or gallop Respiratory: no respiratory distress, no rales or rhonchi, clear to auscultation Skin: other (back with two blisters/abrasions, about 1cm each, on lower R flank , no surrounding erythema) ICD10 Worksheet Patient Problems: Problems Problem Status Onset Abdominal pain Acute Vomiting Acute Hydrosalpinx Acute Colon cancer Acute
== END 2016-12-23 14:25 | disposition home or self-care (01) | DRG 740 ==
LOC: PREOBSVTOIN 10:31 → F3E 13:38 → F2N 12-18 14:25 → F1N 12-19 14:14
PROVIDERS: ADMIT Surgery; ATTEND Surgery
PROC: 0UT60ZZ Resection of Left Fallopian Tube, Open Approach (ICD-10-PCS; principal; 2016-12-17 15:00)
PROC: 0UT90ZZ Resection of Uterus, Open Approach (ICD-10-PCS; principal; 2016-12-17 15:00)
PROC: 0UN90ZZ Release Uterus, Open Approach (ICD-10-PCS; principal; 2016-12-17 15:00)
PROC: 0UT10ZZ Resection of Left Ovary, Open Approach (ICD-10-PCS; principal; 2016-12-17 15:00)
PROC: 0WBF0ZX Excision of Abdominal Wall, Open Approach, Diagnostic (ICD-10-PCS; 2016-12-17 15:00)
PROC: 0DN80ZZ Release Small Intestine, Open Approach (ICD-10-PCS; 2016-12-17 15:00)
DX: C79.82 Secondary malignant neoplasm of genital organs (principal); C79.62 Secondary malignant neoplasm of left ovary; C79.89 Secondary malignant neoplasm of other specified sites; D62 Acute posthemorrhagic anemia; K66.0 Peritoneal adhesions (postprocedural) (postinfection); C78.00 Secondary malignant neoplasm of unspecified lung; G89.29 Other chronic pain; F11.20 Opioid dependence, uncomplicated; C78.7 Secondary malignant neoplasm of liver and intrahepatic bile duct; N73.6 Female pelvic peritoneal adhesions (postinfective); I10 Essential (primary) hypertension; R73.9 Hyperglycemia, unspecified; D25.9 Leiomyoma of uterus, unspecified; Z85.038 Personal history of other malignant neoplasm of large intestine
CPT/HCPCS: 97110-GP; 97116-GP; 97162-GP; 97530-GP; G8978-GP-CI; G8978-GP-CL; G8979-GP-CI; G8979-GP-CJ; G8980-GP-CI; J0360; J0690; J1100; J1170; J1335; J1652; J1815; J1885; J2001; J2250; J2405; J2704; J2795; J3010

== ENCOUNTER 2017-11-30 21:39 | Inpatient (IN) | payer OTHER ==
[2017-11-30] MEDS ORDERED: NS 1,000 ML IV ONE (22:01)
[2017-11-30] MEDS ORDERED: ONDANSETRON 4 MG/2 ML VIAL IVP ONE (22:01)
--- NOTE | 2017-11-30 22:21 | EDPHY ---
H & P Stated Complaint: vomitng for one week Time Seen by Provider: 11/30/17 21:47 HPI/ROS: Chief Complaint: Nausea, vomiting, abdominal pain HPI: This is a 62-year-old woman with a history of metastatic colon cancer presenting with 1 week of nausea, vomiting and crampy abdominal pain. Patient states she has been taking her Zofran every 4 hr. She is also continuing to take her hydromorphone and OxyContin without significant relief. Does not have a history of bowel obstruction. She did have a CT scan on October 12 showing metastatic disease in her liver causing some portal hypertension and a retroperitoneal mass in the left causing some hydro ureter hydronephrosis. She has not had any blood or coffee-grounds in her vomiting. No blood or dark tarry stools. Last bowel movement was yesterday. She has been having some constipation. No fevers or chills. No urinary urgency or frequency. Pain is about an 8/10. She has not noted any aggravating or alleviating factors. She states that the symptoms had improved but yesterday but got worse again today. ROS: 10 point Review of Systems is negative except as noted in the HPI. PMH: Metastatic adenocarcinoma of the colon with metastasis to the liver and retroperitoneal space Social History: No smoking, no alcohol, no recreational drug use Family History: non-contributory Physical Exam: Gen: Awake, Alert, very uncomfortable appearing HEENT: Nose: no rhinorrhea Eyes: PERRLA, EOMI Mouth: Moist mucosa Neck: Supple, no JVD Chest: nontender, lungs clear to auscultation Heart: S1, S2 normal, no murmur Abd: Soft, diffuse abdominal tenderness with voluntary guarding Back: no CVA tenderness, no midline tenderness Ext: no edema, non-tender Skin: no rash Neuro: CN II-XII intact, Sensation grossly intact, Strength 5/5 in bilateral upper and lower extremities - Personal History Current Tetanus/Diphtheria Vaccine: Yes Current Tetanus Diphtheria and Acellular Pertussis (TDAP): Yes Tetanus Vaccine Date: 10/2010 - Medical/Surgical History Hx Asthma: No Hx Chronic Respiratory Disease: No Hx Diabetes: No Hx Cardiac Disease: No Hx Renal Disease: No Hx Cirrhosis: No Hx Alcoholism: No Hx HIV/AIDS: No Hx Splenectomy or Spleen Trauma: No Other PMH: colon ca, colectomy, mulitple hernia repairs with mesh, - Social History Smoking Status: Never smoked Constitutional: Initial Vital Signs Temperature (C) 37.1 C 11/30/17 21:41 Heart Rate 63 11/30/17 21:41 Respiratory Rate 18 11/30/17 21:41 Blood Pressure 219/120 H 11/30/17 21:41 O2 Sat (%) 98 11/30/17 21:41 O2 Delivery Mode Room Air Allergies/Adverse Reactions: Heparin Analogues Allergy (Severe, Verified 11/30/17 21:45) Other-Enter Comments Home Medications: Medication Instructions Recorded HYDROmorphone HCL [Dilaudid 4 mg 8 - 16 mg PO Q6HRS PRN 05/21/16 (*)] fentaNYL [Subsys] 1,200 each SL QID PRN 05/21/16 methYLPHENIDATE HCL [Ritalin 10mg 10 mg PO BID 05/21/16 (*)] oxyCODONE HCL [Oxycontin] 60 mg PO BID 05/21/16 Herbals/Supplements -Info Only 1 ea PO DAILY 12/16/16 LORazepam [Ativan (*)] 1 mg PO DAILY PRN 12/16/16 Zolpidem Tartrate [Ambien 5MG (*)] 10 mg PO HS PRN 12/16/16 amLODIPine BESYLATE [Norvasc 5 mg 5 mg PO DAILY PRN 12/16/16 (*)] valACYclovir [Valtrex (*)] 500 mg PO TID PRN 12/16/16 oxyCODONE IR [Oxycodone Ir (*)] 90 mg PO Q6 PRN #0 tab 12/23/16 Medical Decision Making - Diagnostics Imaging Results: Imaging Impressions Abdomen CT 11/30/17 23:16 Impression: 1. Hepatic metastasis. 2. Peritoneal metastasis abdominal wall metastasis involving the anterior pelvic wall incision site with the largest metastasis measuring 4 x 3.3 cm. 3. Constipation. 4. Dilated loops of small bowel representing ileus versus partial or early distal small bowel obstruction. Consider small bowel series follow-up. 5. Suspect metastasis in the right middle lobe. Consider CT chest with contrast. Findings and recommendations discussed with Emergency Department physician, Misael Underwood MD at 23:57 hour, 11/30/2017. Final report concurs with initial preliminary interpretation. - Data Points Laboratory Results: Laboratory Results 11/30/17 22:30 11/30/17 22:30 11/30/17 11/30/17 11/30/17 23:20 22:30 22:30 WBC RBC Hgb Hct MCV MCH MCHC RDW Plt Count MPV Neut % (Auto) Lymph % (Auto) Lassen % (Auto) Eos % (Auto) Baso % (Auto) Nucleat RBC Rel Count Absolute Neuts (auto) Absolute Lymphs (auto) Absolute Monos (auto) Absolute Eos (auto) Absolute Basos (auto) Absolute Nucleated RBC Immature Gran % Immature Gran # PT 13.6 SEC SEC (12.0-15.0) INR 1.02 (0.83-1.16) APTT 25.0 SEC SEC (23.0-38.0) Sodium 140 mEq/L mEq/L (135-145) Potassium 4.0 mEq/L mEq/L (3.3-5.0) Chloride 100 mEq/L mEq/L (97-110) Carbon Dioxide 22 mEq/l mEq/l (22-31) Anion Gap 18 mEq/L H mEq/L (8-16) BUN 15 mg/dL mg/dL (7-23) Creatinine 0.8 mg/dL mg/dL (0.6-1.0) Estimated GFR > 60 Glucose 142 mg/dL H mg/dL (70-100) Calcium 9.2 mg/dL mg/dL (8.5-10.4) Total Bilirubin 0.7 mg/dL mg/dL (0.1-1.4) AST 25 IU/L IU/L (14-46) ALT 27 IU/L IU/L (9-52) Alkaline Phosphatase 152 IU/L H IU/L (38-126) Total Protein 7.1 g/dL g/dL (6.3-8.2) Albumin 4.0 g/dL g/dL (3.5-5.0) Lipase 36 IU/L IU/L (23-300) Urine Color PALE YELLOW Urine Appearance HAZY Urine pH 5.0 (5.0-7.5) Ur Specific Clark 1.011 (1.002-1.030) Urine Protein NEGATIVE (NEGATIVE) Urine Ketones 2+ H (NEGATIVE) Urine Blood NEGATIVE (NEGATIVE) Urine Nitrate NEGATIVE (NEGATIVE) Urine Bilirubin NEGATIVE (NEGATIVE) Urine Urobilinogen NEGATIVE EU EU (0.2-1.0) Ur Leukocyte Esterase NEGATIVE (NEGATIVE) Urine Glucose NEGATIVE (NEGATIVE) 11/30/17 22:30 WBC 9.50 10^3/uL 10^3/uL (3.80-9.50) RBC 5.44 10^6/uL H 10^6/uL (4.18-5.33) Hgb 15.3 g/dL g/dL (12.6-16.3) Hct 44.9 % % (38.0-47.0) MCV 82.5 fL fL (81.5-99.8) MCH 28.1 pg pg (27.9-34.1) MCHC 34.1 g/dL g/dL (32.4-36.7) RDW 18.0 % H % (11.5-15.2) Plt Count 311 10^3/uL 10^3/uL (150-400) MPV 9.2 fL fL (8.7-11.7) Neut % (Auto) 89.2 % H % (39.3-74.2) Lymph % (Auto) 7.7 % L % (15.0-45.0) Lassen % (Auto) 2.2 % L % (4.5-13.0) Eos % (Auto) 0.2 % L % (0.6-7.6) Baso % (Auto) 0.4 % % (0.3-1.7) Nucleat RBC Rel Count 0.0 % % (0.0-0.2) Absolute Neuts (auto) 8.47 10^3/uL H 10^3/uL (1.70-6.50) Absolute Lymphs (auto) 0.73 10^3/uL L 10^3/uL (1.00-3.00) Absolute Monos (auto) 0.21 10^3/uL L 10^3/uL (0.30-0.80) Absolute Eos (auto) 0.02 10^3/uL L 10^3/uL (0.03-0.40) Absolute Basos (auto) 0.04 10^3/uL 10^3/uL (0.02-0.10) Absolute Nucleated RBC 0.00 10^3/uL 10^3/uL (0-0.01) Immature Gran % 0.3 % % (0.0-1.1) Immature Gran # 0.03 10^3/uL 10^3/uL (0.00-0.10) PT INR APTT Sodium Potassium Chloride Carbon Dioxide Anion Gap BUN Creatinine Estimated GFR Glucose Calcium Total Bilirubin AST ALT Alkaline Phosphatase Total Protein Albumin Lipase Urine Color Urine Appearance Urine pH Ur Specific Clark Urine Protein Urine Ketones Urine Blood Urine Nitrate Urine Bilirubin Urine Urobilinogen Ur Leukocyte Esterase Urine Glucose Medications Given: Hydromorphone HCl (Dilaudid) 0.5 - 1 mg IVP Q3HRS PRN PRN Reason: Pain, Severe Unable to Take PO Stop: 12/11/17 00:50 Last Admin: 12/01/17 01:39 Dose: 1 mg Sodium Chloride (Ns) 1,000 mls @ 75 mls/hr IV CONT ALEX Stop: 05/30/18 00:59 Last Admin: 12/01/17 01:44 Dose: 1,000 mls Lorazepam (Ativan Injection) 0.5 - 1 mg IVP Q8HRS PRN PRN Reason: Anxiety Stop: 05/30/18 00:50 Last Admin: 12/01/17 01:38 Dose: 1 mg Ondansetron HCl (Zofran) 4 mg IVP Q4HRS PRN PRN Reason: Nausea/Vomiting, Can't Take PO Stop: 05/30/18 00:50 Last Admin: 12/01/17 02:14 Dose: 4 mg Discontinued Medications Hydromorphone HCl (Dilaudid) 1 mg IVP EDNOW ONE Stop: 11/30/17 22:02 Last Admin: 11/30/17 23:26 Dose: 1 mg Hydromorphone HCl (Dilaudid) 1 mg IVP EDNOW ONE Stop: 11/30/17 22:37 Last Admin: 12/01/17 00:23 Dose: 1 mg Sodium Chloride (Ns) 1,000 mls @ 0 mls/hr IV ONCE ONE; Wide Open PRN Reason: Protocol Stop: 11/30/17 22:02 Last Admin: 11/30/17 22:26 Dose: 1,000 mls Ondansetron HCl (Zofran) 4 mg IVP EDNOW ONE Stop: 11/30/17 22:02 Last Admin: 11/30/17 22:27 Dose: 4 mg Departure - Departure Disposition: [facility] Inpatient Acute Clinical Impression: Abdominal pain, Constipation, Ileus Condition: Fair
[2017-11-30] MEDS: HYDROmorphONE/DILAUDID 1 MG/ML INJ IVP ONE ×4 (22:28→23:26)
[2017-11-30] MEDS ORDERED: HYDROmorphONE/DILAUDID 1 MG/ML INJ ONE ×3 (22:35→23:20)
[2017-11-30] MEDS ORDERED: HYDROmorphONE/DILAUDID 2 MG/ML INJ IVP ONE (22:36)
[2017-11-30 22:56] LABS: PLATELET COUNT 311 10^3/uL (150-400)
[2017-11-30 23:06] LABS: INR 1.02 (0.83-1.16); PROTIME(PATIENT) 13.6 SEC (12.0-15.0)
[2017-11-30] MEDS ORDERED: IOPAMIDOL (ISOVUE-300) 100 ML BTL ONE (23:21)
[2017-12-01] MEDS ORDERED: HYDROmorphONE/DILAUDID 1 MG/ML INJ ONE (00:21)
[2017-12-01] MEDS ORDERED: ACETAMINOPHEN 325 MG TAB PO PRN (00:51)
[2017-12-01] MEDS: LORazepam 2 MG/ML INJ IVP PRN ×2 (01:38→11:39)
[2017-12-01] MEDS: HYDROmorphONE/DILAUDID 1 MG/ML INJ IVP PRN ×4 (01:39→21:33)
[2017-12-01] MEDS: NS 1,000 ML IV SCH ×2 (01:44→17:07)
[2017-12-01] MEDS: ONDANSETRON 4 MG/2 ML VIAL IVP PRN ×3 (02:14→20:10)
[2017-12-01] MEDS ORDERED: METHOCARBAMOL 1,000 MG in NS 50 ML IVP ONE (03:07)
[2017-12-01] MEDS ORDERED: MAGNESIUM HYDROXIDE 30 ML UDCUP PO PRN (03:08)
[2017-12-01] MEDS ORDERED: BISACODYL 10 MG SUPP PR PRN (03:08)
[2017-12-01] MEDS ORDERED: POLYETHYLENE GLYCOL 3350 17 GM PKT PO PRN (03:08)
[2017-12-01] MEDS ORDERED: LACTULOSE 20 GM/30 ML UDCUP PO PRN (03:08)
--- NOTE | 2017-12-01 06:32 | GHP ---
[f rep st] HISTORY AND PHYSICAL DATE OF ADMISSION: 12/01/2017 PRIMARY CARE PHYSICIAN: Patient's PCP is Zain Tobin MD. PRIMARY ONCOLOGIST: Patient's primary oncologist is Dr. Mascorro. SOURCE: Patient able to provide history, appears reliable. Her EMR was reviewed and case discussed with the ED provider. CHIEF COMPLAINT: Abdominal pain, nausea, and vomiting. HISTORY OF PRESENT ILLNESS: Very pleasant, unfortunate, 62-year-old female with history of metastati c adenocarcinoma of the colon, status post colectomy with ileostomy takedown, who [facility] with complaints of a 1-day history of sudden onset of generalized abdominal p ain, distention, nausea, and vomiting. The patient denies any fevers or chills. She states that she has had ongoing hot flushing and chills since her diagnosis, which is unchanged. She denies any kaz phoresis. No chest pain, palpitations, or shortness of breath. She is complaining of a headache. T he patient reports that she did have a normal bowel movement early in the morning. Has not had any r eported melena or hematochezia. Patient without any hematemesis. The patient is waiting to get asse ssed for an experimental trial so has not had any recent chemotherapy. Patient does take opiates on a chronic basis for her pain. She did try to take her Dilaudid and Ativan at home without improvemen t in her symptoms. Patient did attempt to take Zofran every 4 hours without any improvement in her s ymptoms. She has not been able to keep any liquids or solids down over the course of the day. ALLERGIES: Heparin. MEDICATIONS: Valtrex 500 mg p.o. t.i.d. p.r.n., Oxy IR 90 mg p.o. q.6 hours p.r.n., OxyContin 60 mg p.o. b.i.d., Ritalin 10 mg p.o. b.i.d., fentanyl 1200 mg sublingual q.i.d. p.r.n., amlodipine 5 mg p. o. daily, Ambien 5 mg p.o. at h.s., lorazepam 1 mg p.o. daily p.r.n., turmeric supplementation, and h ydromorphone 4 mg p.o. tab 8-16 mg p.o. q.6 hours p.r.n. for pain. REVIEW OF SYSTEMS: Negative except as noted above. PAST MEDICAL HISTORY: Significant for metastatic adenocarcinoma of the colon with metastasis to the liver, retroperitoneum, and anterior abdominal wall space. PAST SURGICAL HISTORY: Significant for colectomy with ileostomy takedown, multiple hernia repairs, h ysterectomy with left salpingo-oophorectomy, hepatic pump that was for chemotherapy; that was discont inued. FAMILY HISTORY: Significant for mother with CVA. Father with Pick's disease. SOCIAL HISTORY: Patient is from [place]. She is . She moved to [place], and she has a daug hter and son-in-law, who are in town and supportive. She does not smoke, drink, or do drugs. 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 CODE STATUS: Full. PHYSICAL EXAMINATION: VITAL SIGNS: Upon arrival to the emergency department, blood pressure 219/120 , heart rate 63, respiratory rate 18, O2 saturation is 98% on room air with temperature 37.1. [facility] available vital signs: Blood pressure 135/105, heart rate 112, respiratory rate 12, O2 saturatio n 94% on room air on 2 L via nasal cannula, temperature 37.5. GENERAL: Patient in moderate distress secondary to complaints of pain. She is lying awake in bed, holding her abdomen. She moans and ruben ans intermittently due to pain. HEAD: Normocephalic, atraumatic. EYES: Extraocular muscles grossl y intact. Pupils symmetric. No apparent scleral icterus or conjunctival injection. ENT: Mucous me mbranes appear dry. No oropharyngeal erythema. Dentition intact. NECK: Supple. Trachea midline. CV: Regular rate and rhythm. Slightly distant heart sounds. No murmurs, rubs, or gallops apprecia avelina. RESPIRATORY: Lungs clear to auscultation bilaterally. No wheezes, rales, or rhonchi appreciat ed. Unlabored breathing. GI: Hypoactive bowel sounds. Patient with diffuse, but more central abdo azra pain with palpation. No rebound, guarding, or masses palpated. : No suprapubic tenderness to palpation. No Orourke catheter in place. EXTREMITIES: Patient without any cyanosis or clubbing. She does have some trace edema in the distal lower extremities. Patient with 2+ pedal pulses. MUSCU LOSKELETAL: Generalized deconditioning, weakness. She is able to move all extremities while lying i n bed. She is able to sit up independently in her bed. NEURO: Grossly nonfocal. No facial droopin g. Moves all extremities as noted above. PSYCH: Affect slightly flat secondary to patient appearin g quite uncomfortable, but she is pleasant, cooperative. Questions are appropriate. LABORATORY STUDIES: WBC 9.50, H and H of 15.34 and 44.9, MCV 82.5, platelet count is 311, neutrophil s percent is 89.2, no bands. PT 13.6, INR 1.02, PTT is 25.0. Sodium is 140, potassium is 4.0, chlor jacqueline 100, CO2 is 22, anion gap 18, BUN 15, creatinine 0.8. GFR greater than 60, glucose 142, calcium is 9.2, total bilirubin 0.7, ALT is 27, AST is 25, total protein 7.1, albumin is 4.0, lipase is 36. UA: Specific gravity 1.011, pH of 5.0, hazy-yellow urine, 2+ ketones, otherwise negative. LABORATORY STUDIES: CT abdomen and pelvis, image report reviewed, showin. Hepatic metastases, peritoneal metastasis up to the abdominal wall involving the anterior pelvic wall incision site, the largest 4 x 3.3 cm. 2. Constipation. 3. Dilated loops of small bowel representing ileus versus partial or early distal small-bowel obstru ction. Consider small bowel series followup. Suspect metastases in the right middle lobe. Consider CT chest with contrast. ASSESSMENT AND PLAN: Oj 62-year-old female with history of metastatic colon cancer presents to the emergency department with worse acute on chronic abdominal pain, nausea, and vomiting. 1. Abdominal pain. This is due likely to ileus and the patient's opiate-induced constipation versus small bowel obstruction developing. Patient will be made n.p.o. She will receive some p.r.n. medic ations to assist with her pain. I did advise the patient that use of narcotic therapy can worsen her symptoms, particularly given that she has a notable amount of constipation. We will try to utilize alternative medications for her pain management, but given she is on high doses of opiates, we will c ontinue some amount to a lesser degree. The patient may require additional imaging. If she is able to start passing flatus and/or have a bowel movement, then I anticipate that we can probably go ahead and start her bowel regimen. She has not had any further episodes of nausea or vomiting at this bel e, but we will still hold off on NG tube placement. We will reassess later in the morning. May requ sarah additional consultation with General Surgery for any further recommendations. 2. Intractable pain, as noted above. 3. Constipation, likely opiate induced. Bowel regimen as noted above. 4. Metastatic colon cancer. Unsure of extent of metastatic disease, with concerns for pulmonary inv olvement were noted on a recent CAT scan that patient underwent as outpatient. She is followed by Dr Regina Mascorro, and a courtesy call in the morning as per day team. 5. Glucose hyperglycemia. Likely this is a nonfasting lab. Patient without any previous history of diabetes. No intervention required at this time. Will plan to repeat with morning labs. Elevated alkaline phosphatase secondary to metastatic disease, particularly in the liver. 6. Fluid, electrolytes, and nutrition. Patient will receive some gentle IV fluid hydration overnigh t. She will be made n.p.o. Electrolytes will be replaced if needed. Plan as noted above for patien t's abdominal pain and possible obstruction. 7. Code status is full. 8. Prophylaxis. SCDs. Holding anticoagulation at this time, pending reassessment in the morning an d possible need for consultation with small bowel obstruction. 9. Disposition. Patient has been admitted to inpatient status on the medical floor. Anticipate gre ater than 2-midnight stay given severity of patient's nausea, vomiting, abdominal pain, and her histo ry of chronic narcotic therapy and metastatic disease. /[id number]/MODL
[2017-12-01 06:35] LABS: PLATELET COUNT 329 10^3/uL (150-400)
[2017-12-01] MEDS ORDERED: FENTANYL SL PRN (08:51)
[2017-12-01] MEDS ORDERED: valACYclovir 500 MG TAB PO PRN (08:51)
[2017-12-01] MEDS ORDERED: LORazepam 1 MG TAB PO PRN (08:51)
[2017-12-01] MEDS ORDERED: ZOLPIDEM TARTRATE 5 MG TAB PO PRN (08:51)
[2017-12-01] MEDS ORDERED: METHYLNALTREXONE BROMIDE 12 MG/0.6 ML INJ SC ONE (09:02)
--- NOTE | 2017-12-01 09:15 | HOSPPROG ---
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 Pt does not want to make changes, noting she doesn't think she has much time to live and wants pain control, which I think is reasonable -seems improved today, consider SBFT if no BM by tomorrow Metastatic colon cancer - not on treatment currently, waiting to start a clinical trial in [place]. Followed by Dr. Mascorro -will alert oncology of admission Hypertension - resume Norvasc Tachycardia - ?pain or withdrawal. No hypotension or pleuritic symptoms. -resume outpt opiate doses and follow -consider PE workup if not improving. Full code DVT PPLX - high risk, heparin all noted, will give Arixtra Dispo - cont inpt. Discussed goals of care, pt continues to remain hopeful for response to tx. Wants to remain full code. Followed by outpt palliative care. Subjective: Pt feels better this am. +flatus. Last BM yesterday, was hard. No fevers/chills. Abdominal pain and distention improved. Had vomiting yest, no more today. Objective: Vital Signs Temp Pulse Resp BP Pulse Ox 37.5 C 116 H 16 175/105 H 95 12/01/17 04:38 12/01/17 05:41 12/01/17 05:41 12/01/17 04:38 12/01/17 05:41 Laboratory Results 12/01/17 06:15 12/01/17 06:15 11/30/17 12/01/17 12/02/17 05:59 05:59 05:59 Intake Total 1337.5 Output Total 800 Balance 537.5 PT 13.6 SEC (12.0-15.0) 11/30/17 22:30 INR 1.02 (0.83-1.16) 11/30/17 22:30 - Physical Exam Constitutional: no apparent distress Eyes: PERRL Ears, Nose, Mouth, Throat: moist mucous membranes Cardiovascular: regular rate and rhythym, tachycardia Respiratory: no respiratory distress, clear to auscultation Gastrointestinal: normoactive bowel sounds, soft, non-tender abdomen Skin: warm Musculoskeletal: full muscle strength Neurologic: AAOx3 Psychiatric: interacting appropriately ICD10 Worksheet Patient Problems: Problems Problem Status Onset Abdominal pain Acute Constipation Acute Ileus Acute Colon cancer Acute Hydrosalpinx Acute Vomiting Acute
[2017-12-01] MEDS ORDERED: oxyCODONE IR 15 MG TAB PO PRN (09:30)
[2017-12-01] MEDS: oxyCODONE CR 30 MG TAB PO SCH ×2 (10:04→20:03)
[2017-12-01] MEDS: amLODIPine BESYLATE 5 MG TAB PO SCH (10:04)
--- NOTE | 2017-12-01 10:13 | PDMN ---
Medical Necessity Medical necessity: MCG: M200 intestinal obstruction- 2 days: abd pain with N/V , pt will be NPO, Pt with hx of metastatic colon cancer, further monitoring , eval and tx needed anticipate > 2 midnights.
[2017-12-01] MEDS: SENNOSIDES/DOCUSATE SODIUM TAB PO SCH ×2 (10:21→20:04)
[2017-12-01] MEDS: oxyCODONE IR 15 MG TAB PO PRN ×2 (11:08→20:03)
[2017-12-01] MEDS: HYDROmorphONE/DILAUDID 4 MG TAB PO PRN ×2 (11:40→23:49)
--- NOTE | 2017-12-01 15:24 | ASMTCMCOM ---
CM Note CM Note Notes: Pt here w/metastatic colon cancer, currently w/ileus. Pt having pain issues and very tired today; RN felt it would be better for CM to visit w/pt tomorrow. Pt lives at home alone and has daughter who is involved. Pt is followed by out pt palliative; CM will meet w/pt tomorrow. Date Signed: 12/01/2017 03:24 PM Electronically Signed By:Reba Bhat RN
[2017-12-01] MEDS: METHOCARBAMOL 750 MG TAB PO SCH ×2 (17:07→21:34)
[2017-12-01] MEDS: FONDAPARINUX SODIUM 2.5 MG/0.5 ML SYR SC SCH (18:16)
[2017-12-02] MEDS: HYDROmorphONE/DILAUDID 1 MG/ML INJ IVP PRN ×2 (00:59→08:24)
[2017-12-02] MEDS: LORazepam 2 MG/ML INJ IVP PRN (01:32)
[2017-12-02] MEDS: oxyCODONE IR 15 MG TAB PO PRN (05:20)
[2017-12-02] MEDS: NS 1,000 ML IV SCH (06:12)
[2017-12-02] MEDS: HYDROmorphONE/DILAUDID 4 MG TAB PO PRN (06:13)
[2017-12-02 07:56] VITALS: BP 116/58
[2017-12-02] MEDS: FONDAPARINUX SODIUM 2.5 MG/0.5 ML SYR SC SCH (08:16)
[2017-12-02] MEDS: SENNOSIDES/DOCUSATE SODIUM TAB PO SCH (08:18)
[2017-12-02] MEDS: oxyCODONE CR 30 MG TAB PO SCH (08:24)
[2017-12-02] MEDS: METHOCARBAMOL 750 MG TAB PO SCH (08:24)
[2017-12-02] MEDS: amLODIPine BESYLATE 5 MG TAB PO SCH (08:25)
--- NOTE | 2017-12-02 11:03 | GDS ---
[f rep st] DISCHARGE SUMMARY DISCHARGE DIAGNOSES: 1. 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 2. Metastatic colon cancer. 3. Hypertension. CONSULTANTS: None. IMAGING STUDIES: Abdomen CT, November 30, 2017, shows known hepatic metastases, as well as peritoneal met astases and abdominal wall metastases involving the anterior pelvic wall incision site. In addition, constipation was noted with dilated loops of small bowel, representing an ileus versus a partial or early distal small-bowel obstruction. There is also consideration to possible metastasis in the righ t middle lobe. Will defer chest CT to her oncologist in the outpatient setting. HISTORY: For details, please see History and Physical dated December 01, 2017. In brief, the patient is a 62-year-old female with history of metastatic colon cancer, who has chronic high-dose opioid use, w ho presents to the hospital with nausea, vomiting, and abdominal pain. She was admitted to the [facility] for management of ileus. HOSPITAL COURSE: Patient was admitted to the Oncology Unit. Her ileus is likely secondary to her hi gh-dose opioid use. I reviewed her regimen, which includes OxyContin, oxycodone, fentanyl, and oral Dilaudid. We discussed the possibility of consolidating her pain medications. However, she notes th at she feels she likely does not have long to live and does not want to make changes to her medicatio ns, which I think is fair. She was given a dose of Relistor and initiated on a bowel regimen. She w as able to affect 2 bowel movements prior to discharge, and her pain is resolved. She has continued on Colace and also has resumed daily MiraLAX. She states she actually stopped the MiraLAX for some t beatris, but recognizes she needs to restart it to maintain bowel activity. On the day of discharge, she is pain free. Her vital signs are stable, and she wishes to go home with support from her daughter. DISPOSITION: Patient was discharged home in stable condition. FOLLOWUP: Patient is to follow up with Dr. Mascorro, her primary oncologist, who can decide about re peating a chest CT based on the possible right lung metastasis seen on her abdomen CT. DISCHARGE MEDICATIONS: Please see [facility] for completed outpatient medication list. New medication s on discharge include MiraLAX 17 g p.o. daily p.r.n. She will continue all other outpatient medicat ions as previously prescribed. /[id number]/MODL
--- NOTE | 2017-12-02 11:12 | ASMTLACE ---
LACE Length of stay for Answers: 1 day current admission Acuity / Level of Answers: Yes Care: Did the patient have an inpatient admission? Comorbidities - select Answers: Any tumor (including all that apply lymphoma or leukemia) Opioid dependence / Chronic pain Other Notes: Metastatic colon cancer # of Emergency department Answers: 1-2 visits in the last 6 months Score: 12 Date Signed: 12/02/2017 11:11 AM Electronically Signed By:Reba Bhat RN
== END 2017-12-02 11:09 | disposition home or self-care (01) | DRG 389 ==
LOC: OBSVTOIN 12-01 00:50 → F1N 12-01 01:25
PROVIDERS: ADMIT Family Medicine; ATTEND Family Medicine
DX: K56.7 Ileus, unspecified (principal); C79.89 Secondary malignant neoplasm of other specified sites; C78.00 Secondary malignant neoplasm of unspecified lung; C78.7 Secondary malignant neoplasm of liver and intrahepatic bile duct; K59.03 Drug induced constipation; T50.7X5A Adverse effect of analeptics and opioid receptor antagonists, initial encounter; E86.9 Volume depletion, unspecified; G89.29 Other chronic pain; Z85.038 Personal history of other malignant neoplasm of large intestine
CPT/HCPCS: 96374; J1170; J1652; J2060; J2212; J2405; J2800; Q9967

== ENCOUNTER → 2017-12-21 | Outpatient (CLI) | payer OTHER ==
[~2017-12-21] MED LIST: IOPAMIDOL (ISOVUE-300) 100 ML BTL ONE
== END ==
LOC: FIMAGING 14:14
DX: C18.9 Malignant neoplasm of colon, unspecified (principal); C78.00 Secondary malignant neoplasm of unspecified lung; C78.7 Secondary malignant neoplasm of liver and intrahepatic bile duct
CPT/HCPCS: 71270; Q9967; 82565-PO

== ENCOUNTER → 2018-01-21 | Outpatient (CLI) | payer OTHER | LOC: FIMAGING 12:32 | DX: N13.30 Unspecified hydronephrosis (principal); C18.9 Malignant neoplasm of colon, unspecified; C44.509 Unspecified malignant neoplasm of skin of other part of trunk | CPT/HCPCS: 71260; 74177; Q9967 ==

== ENCOUNTER → 2018-04-05 | Outpatient (CLI) | payer OTHER | LOC: FIMAGING 12:45 | DX: C18.9 Malignant neoplasm of colon, unspecified (principal); R91.1 Solitary pulmonary nodule; R19.07 Generalized intra-abdominal and pelvic swelling, mass and lump; R59.1 Generalized enlarged lymph nodes | CPT/HCPCS: 71260; 74177; Q9967 ==

== ENCOUNTER → 2018-04-29 | Outpatient (CLI) | payer OTHER ==
[~2018-04-29] MED LIST changes: +GADOBUTROL 10 ML VIAL IVP ONE
== END ==
LOC: FIMAGING 09:03
DX: Z12.89 Encounter for screening for malignant neoplasm of other sites (principal); C18.9 Malignant neoplasm of colon, unspecified
CPT/HCPCS: 70553; 71260; 74177; A9585; Q9967

== ENCOUNTER 2018-06-12 21:34 | Inpatient (IN) | payer OTHER ==
[2018-06-12] MEDS ORDERED: NS 1,000 ML IV ONE ×2 (21:44→23:16)
--- NOTE | 2018-06-12 21:50 | EDPHY ---
H & P Time Seen by Provider: 06/12/18 21:36 HPI/ROS: CHIEF COMPLAINT: Slurred speech HISTORY OF PRESENT ILLNESS: Patient is a 63-year-old female with a history of metastatic adenocarcinoma of the colon with metastasis to the liver lungs and abdominal wall and retroperitoneum. Her daughter who is currently on a [place] trip called her mom and was concerned because patient was slurring her speech. She called the EMS and asked for a well check. Paramedics found her a confused and covered in stool with feces throughout the home. They also report that the home was "covered in fentanyl lollipops". The patient has been on multiple opiates for chronic abdominal pain and was hospitalized this summer. No vomiting per report. The patient is alert and oriented but does have some slurred speech and appears intoxicated. No focal weakness. Is moving all extremities. Equal smile. Patient did have an MRI of her brain in April that was negative. Severity: Moderate Modifying factors: None REVIEW OF SYSTEMS: Unable to obtain secondary to condition EXAM: GENERAL: Covered in stool, under fingernails and hands and feet. Smiling, alert HEAD: Atraumatic, normocephalic. EYES: Pupils equal round and reactive to light, extraocular movements intact, sclera anicteric, conjunctiva are normal. ENT: Tongue is bruised and purple, possibly lateral laceration on the right. TMs normal, nares patent, oropharynx clear without exudates. Moist mucous membranes. NECK: Normal range of motion, supple without lymphadenopathy or JVD. LUNGS: Breath sounds clear to auscultation bilaterally and equal. No wheezes rales or rhonchi. HEART: Regular rate and rhythm without murmurs, rubs or gallops. ABDOMEN: Mild diffuse tenderness which is baseline according to EMS, suprapubic hernia, does not appear incarcerated. normoactive bowel sounds. No guarding, no rebound. No masses appreciated. BACK: No CVA tenderness, no spinal tenderness, step-offs or deformities EXTREMITIES: Normal range of motion, no pitting or edema. No clubbing or cyanosis. Small first-degree decubitus on right hip. NEUROLOGICAL: Cranial nerves II through XII grossly intact. Slightly slurred speech. 5/5 strength, normal movement in all extremities, normal sensation, normal reflexes PSYCH: appears intoxicated SKIN: Warm, dry, normal turgor, no visible rashes or lesions. Source: Patient, EMS, Old records Exam Limitations: Clinical condition - Personal History Tetanus Vaccine Date: 10/2010 - Medical/Surgical History Hx Asthma: No Hx Chronic Respiratory Disease: No Hx Diabetes: No Hx Cardiac Disease: No Hx Renal Disease: No Hx Cirrhosis: No Hx Alcoholism: No Hx HIV/AIDS: No Hx Splenectomy or Spleen Trauma: No Other PMH: colon ca, colectomy, mulitple hernia repairs with mesh, - Family History Significant Family History: No pertinent family hx - Social History Smoking Status: Never smoked Alcohol Use: Sober Drug Use: None Constitutional: Initial Vital Signs Temperature (C) 36.5 C 06/12/18 21:40 Heart Rate 83 06/12/18 21:40 Respiratory Rate 20 06/12/18 21:40 Blood Pressure 146/107 H 06/12/18 21:40 O2 Sat (%) 95 06/12/18 21:40 O2 Delivery Mode Room Air Allergies/Adverse Reactions: Heparin Analogues Allergy (Severe, Verified 06/12/18 22:32) Other-Enter Comments panitumumab Allergy (Verified 06/14/18 10:32) Home Medications: Medication Instructions Recorded FLUoxetine [Prozac 20 MG (*)] 20 mg PO DAILY 06/14/18 Fexofenadine HCl [Ethel Allergy] 60 mg PO BID PRN 06/14/18 HYDROmorphone HCL [Dilaudid 4 mg 8 - 16 mg PO Q6HRS PRN 06/14/18 (*)] Herbals/Supplements -Info Only 1 ea PO DAILY 06/14/18 Ibuprofen [Motrin (*)] 400 mg PO Q6HRS PRN 06/14/18 Loperamide HCl [Imodium 2 mg (*)] 2 mg PO TID PRN 06/14/18 Loratadine [Claritin 10 mg] 10 mg PO DAILY PRN 06/14/18 Mometasone Furoate Nasal [Nasonex] 1 sprays NASAL DAILY PRN 06/14/18 Multivitamins [Multivitamin (*)] 1 each PO DAILY 06/14/18 Oxymetazoline HCl [Afrin Nasal 2 spray EACHNARE DAILY PRN 06/14/18 [place] (OTC)] Polyethylene Glycol 3350 [Miralax 17 gm PO DAILY PRN 06/14/18 17 gm (*)] Prochlorperazine Maleate 10 mg PO Q6HRS PRN 06/14/18 [Compazine 10mg (*)] Pseudoephedrine HCl [Sudafed] 30 mg PO Q6HRS PRN 06/14/18 Zolpidem Tartrate [Ambien] 10 mg PO HS PRN 06/14/18 amLODIPine BESYLATE [Norvasc 10 mg 10 mg PO DAILY 06/14/18 (*)] fentaNYL CITRATE [Abstral] 200 mcg SL Q4HRS PRN 06/14/18 methYLPHENIDATE HCL [Ritalin 10mg 10 mg PO BID@08,14 06/14/18 (*)] oxyCODONE HCL [Oxycontin] 80 mg PO BID 06/14/18 Medical Decision Making ED Course/Re-evaluation: Patient is alert. Her lab work is concerning for severe dehydration. She is being hydrated here. Her CK is elevated but not enough to qualify for rhabdomyolysis. She is receiving IV fluids which is the treatment. No obvious signs infection at this point. CT does not show any hemorrhage or trauma. Will admit to the medical service. 11:00 p.m. I discussed the case with Dr. Bartlett who will admit to the medical service. Urine pending Differential Diagnosis: Partial list of the Differential diagnosis considered include but were not limited to; dehydration, renal insufficiency, medication abuse, seizure, metastasis and although unlikely based on the history and physical exam, I also considered intracranial hemorrhage, infection. - Data Points Laboratory Results: Laboratory Results 06/13/18 04:52 06/13/18 04:52 Microbiology Results: MICROBIOLOGY 06/12/18 23:00 Urine,Clean Catch Urine Culture - Final Escherichia Coli Two [place] Types Medications Given: Acetaminophen (Tylenol) 650 mg PO Q4HRS PRN PRN Reason: Pain, Mild/Fever, Can Take PO Stop: 12/09/18 22:59 Last Admin: 06/14/18 05:45 Dose: 650 mg Amlodipine Besylate (Norvasc) 10 mg PO DAILY [facility] Stop: 12/12/18 08:59 Last Admin: 06/15/18 09:28 Dose: 10 mg Calcium Carbonate (Tums) 500 mg PO TID PRN PRN Reason: GASTRITIS Stop: 12/11/18 18:01 Last Admin: 06/14/18 18:28 Dose: 500 mg Fluoxetine HCl (Prozac) 20 mg PO DAILY [facility] Stop: 12/11/18 10:44 Last Admin: 06/15/18 09:28 Dose: 20 mg Hydralazine HCl (Apresoline) 25 mg PO QID PRN PRN Reason: SBP Greater Than 160 Stop: 12/10/18 00:36 Last Admin: 06/14/18 04:36 Dose: 25 mg Hydromorphone HCl (Dilaudid) 4 - 8 mg PO Q6HRS PRN PRN Reason: Pain, Breakthrough Stop: 06/24/18 10:36 Last Admin: 06/15/18 11:53 Dose: 8 mg Methylphenidate HCl (Ritalin) 10 mg PO BID@0800,1400 [facility] Stop: 12/11/18 13:59 Last Admin: 06/15/18 14:45 Dose: 10 mg Multivitamins (Tab-A-Mckay) 1 each PO DAILY [facility] Stop: 12/12/18 08:59 Last Admin: 06/15/18 09:28 Dose: 1 each Oxycodone HCl (Oxycontin) 80 mg PO BID [facility] Stop: 06/24/18 10:44 Last Admin: 06/15/18 09:30 Dose: 80 mg Senna/Docusate Sodium (Senokot-S) 1 - 2 tab PO BID [facility]LEX PRN Reason: Protocol Stop: 12/10/18 20:59 Last Admin: 06/15/18 09:30 Dose: Not Given Discontinued Medications Amlodipine Besylate (Norvasc) 5 mg PO DAILY [facility] Stop: 12/10/18 13:44 Last Admin: 06/14/18 07:38 Dose: 5 mg Amlodipine Besylate (Norvasc) 5 mg PO ONCE ONE Stop: 06/14/18 10:41 Last Admin: 06/14/18 12:17 Dose: 5 mg Hydromorphone HCl (Dilaudid) 0.4 mg IVP Q4HRS PRN PRN Reason: Pain, Severe Unable to Take PO Stop: 06/23/18 09:53 Last Admin: 06/13/18 10:25 Dose: 0.4 mg Hydromorphone HCl (Dilaudid) 0.4 mg IVP Q3H PRN PRN Reason: Pain, Breakthrough Stop: 06/23/18 09:53 Last Admin: 06/14/18 08:56 Dose: 0.4 mg Sodium Chloride (Ns) 1,000 mls @ 0 mls/hr IV EDNOW ONE; Wide Open PRN Reason: Protocol Stop: 06/12/18 21:45 Last Admin: 06/12/18 22:31 Dose: 1,000 mls Dextrose/Sodium Chloride (D5w 1/2 Ns) 1,000 mls @ 100 mls/hr IV CONT [facility]LEX Stop: 12/09/18 22:59 Last Admin: 06/13/18 10:39 Dose: 1,000 mls Sodium Chloride (Ns) 1,000 mls @ 0 mls/hr IV EDNOW ONE; Wide Open PRN Reason: Protocol Stop: 06/12/18 23:17 Last Admin: 06/12/18 23:15 Dose: 1,000 mls Ceftriaxone Sodium/Dextrose (Rocephin 1 Gm (Premix)) 50 mls @ 100 mls/hr IV Q24H ALEX PRN Reason: Protocol Stop: 07/12/18 23:44 Last Admin: 06/14/18 22:46 Dose: 50 mls Morphine Sulfate (Morphine) 1 mg IVP Q4HRS PRN PRN Reason: Pain, Severe Unable to Take PO Stop: 06/23/18 09:52 Last Admin: 06/13/18 19:43 Dose: 1 mg Oxycodone HCl (Oxycodone Ir) 10 mg PO Q6 PRN PRN Reason: Pain, Severe Able to Take PO Stop: 06/23/18 01:40 Last Admin: 06/14/18 05:32 Dose: 10 mg Potassium Chloride (Klor-Con) 20 meq PO ONCE ONE Stop: 06/14/18 16:27 Last Admin: 06/14/18 17:06 Dose: 20 meq Departure - Departure Disposition: [facility] Inpatient Acute Clinical Impression: Dehydration, Renal insufficiency Altered mental status, unspecified Qualifiers: Altered mental status type: unspecified Qualified Code(s): R41.82 - Altered mental status, unspecified Condition: Fair
[2018-06-12 22:44] LABS: PLATELET COUNT 192 10^3/uL (150-400)
[2018-06-12 22:54] LABS: CREATINE KINASE 568 IU/L (0-156)
[2018-06-12] MEDS ORDERED: ONDANSETRON 4 MG/2 ML VIAL IVP PRN (23:00)
[2018-06-12] MEDS ORDERED: ONDANSETRON DISINTEGRATING 4 MG TAB PO PRN (23:00)
--- NOTE | 2018-06-13 00:54 | PDGENHP ---
History and Physical - Chief Complaint Confusion - History of Present Illness 63 yo F w/ hx of metastatic colon CA present with concerns for confusion. Per report, she spoke with her daughter on the phone who became concerned about poor mental status. Her daughter, who is out of town, called EMS to perform a welfare check. EMS found the patient confused and covered in stool with feces throughout the home. EMS also reported to have found several fentanyl lollipops around the home. During my evaluation the patient remains quite confused. She is A&Ox2 with poor memory of recent events. The last day she has memory of is Thursday, 3 days prior to admission. In the ED her work-up is notable for dehydration, SHANON, elevated CK, possible UTI, and abnormal CT concerning for possible PRES/RPLS. Her BP was normal on arrival but has climbed during her time here. She is currently being treated with Sulfatinib on a phase 1 clinical trial. Aside from confusion, the patient denies other symptoms including fever and dysuria. Case discussed with ED physician Dr. Amaya; records reviewed and summarized above. History Information - Allergies/Home Medication List Allergies/Adverse Reactions: Heparin Analogues Allergy (Severe, Verified 06/12/18 22:32) Other-Enter Comments Home Medications: HYDROmorphone HCL [Dilaudid 4 mg (*)] 8 - 16 mg PO Q6HRS PRN 05/21/16 [Last Taken Unknown] fentaNYL [Subsys] 1,200 each SL QID PRN 05/21/16 [Last Taken Unknown] methYLPHENIDATE HCL [Ritalin 10mg (*)] 10 mg PO BID@,14 05/21/16 [Last Taken 11/29/17] oxyCODONE HCL [Oxycontin] 60 mg PO BID 05/21/16 [Last Taken 11/30/17 09:00] Herbals/Supplements -Info Only 1 ea PO DAILY 12/16/16 [Last Taken Unknown] LORazepam [Ativan (*)] 1 mg PO DAILY PRN 12/16/16 [Last Taken 11/30/17] Zolpidem Tartrate [Ambien 5MG (*)] 10 mg PO HS PRN 12/16/16 [Last Taken 11/29/17 ] amLODIPine BESYLATE [Norvasc 5 mg (*)] 5 mg PO DAILY PRN 12/16/16 [Last Taken Unknown] valACYclovir [Valtrex (*)] 500 mg PO TID PRN 12/16/16 [Last Taken Unknown] Ondansetron Odt [Zofran Odt 4 mg (*)] 8 mg PO Q4 PRN 12/01/17 [Last Taken Unknown] oxyCODONE IR [Oxycodone Ir (*)] 60 mg PO Q6H PRN 12/01/17 [Last Taken Unknown] I have personally reviewed and updated: family history, medical history - Past Medical History cancer (Metastatic colon adenocarcinoma) - Surgical History Reports: cancer surgery, colectomy, hysterectomy, hernia repair - Family History Positive for: stroke Additional family history: Pick's - Social History Smoking Status: Never smoked Review of Systems Review of Systems: ROS: 10pt was reviewed & negative except for what was stated in HPI & below Physical Exam Physical Exam: Temp Pulse Resp BP Pulse Ox 36.5 C 73 20 208/93 H 94 06/12/18 21:40 06/13/18 00:00 06/13/18 00:00 06/13/18 00:00 06/13/18 00:00 Constitutional: no apparent distress, appears nourished Eyes: PERRL, EOMI Ears, Nose, Mouth, Throat: dry mucous membranes, other (Ecchymotic tongue) Cardiovascular: regular rate and rhythym, no murmur, rub, or gallop Respiratory: no respiratory distress, clear to auscultation Gastrointestinal: normoactive bowel sounds, soft, non-tender abdomen Skin: warm, normal color Neurologic: CN II-XII Intact, other (A&Ox2) Psychiatric: encephalopathic, poor memory Lab Data & Imaging Review 06/12/18 22:30 06/12/18 22:30 WBC 13.90 10^3/uL (3.80-9.50) H 06/12/18 22:30 RBC 5.02 10^6/uL (4.18-5.33) 06/12/18 22:30 Hgb 14.8 g/dL (12.6-16.3) 06/12/18 22:30 Hct 43.7 % (38.0-47.0) 06/12/18 22:30 MCV 87.1 fL (81.5-99.8) 06/12/18 22:30 MCH 29.5 pg (27.9-34.1) 06/12/18 22:30 MCHC 33.9 g/dL (32.4-36.7) 06/12/18 22:30 RDW 19.1 % (11.5-15.2) H 06/12/18 22:30 Plt Count 192 10^3/uL (150-400) 06/12/18 22:30 MPV 11.0 fL (8.7-11.7) 06/12/18 22:30 Neut % (Auto) 82.6 % (39.3-74.2) H 06/12/18 22:30 Lymph % (Auto) 8.6 % (15.0-45.0) L 06/12/18 22:30 [place] % (Auto) 8.3 % (4.5-13.0) 06/12/18 22:30 Eos % (Auto) 0.0 % (0.6-7.6) L 06/12/18: Baso % (Auto) 0.1 % (0.3-1.7) L 06/12/18 22:30 Nucleat RBC Rel Count 0.0 % (0.0-0.2) 06/12/18 22:30 Absolute Neuts (auto) 11.49 10^3/uL (1.70-6.50) H 06/12/18 22:30 Absolute Lymphs (auto) 1.20 10^3/uL (1.00-3.00) 06/12/18 22:30 Absolute Monos (auto) 1.15 10^3/uL (0.30-0.80) H 06/12/18 22:30 Absolute Eos (auto) 0.00 10^3/uL (0.03-0.40) L 06/12/18 22:30 Absolute Basos (auto) 0.01 10^3/uL (0.02-0.10) L 06/12/18:30 Absolute Nucleated RBC 0.00 10^3/uL (0-0.01) 06/12/18 22:30 Immature Gran % 0.4 % (0.0-1.1) 06/12/18 22:30 Immature Gran # 0.05 10^3/uL (0.00-0.10) 06/12/18 22:30 Sodium 141 mEq/L (135-145) 06/12/18 22:30 Potassium 4.1 mEq/L (3.3-5.0) 06/12/18 22:30 Chloride 107 mEq/L (97-110) 06/12/18 22:30 Carbon Dioxide 20 mEq/l (22-31) L 06/12/18 22:30 Anion Gap 14 mEq/L (6-14) 06/12/18 22:30 BUN 60 mg/dL (7-23) H 06/12/18 22:30 Creatinine 2.3 mg/dL (0.6-1.0) H 06/12/18 22:30 Estimated GFR 21 06/12/18 22:30 Glucose 130 mg/dL (70-100) H 06/12/18 22:30 Calcium 9.1 mg/dL (8.5-10.4) 06/12/18 22:30 Total Bilirubin 1.7 mg/dL (0.1-1.4) H 06/12/18 22:30 Conjugated Bilirubin 0.9 mg/dL (0.0-0.5) H 06/12/18 22:30 Unconjugated Bilirubin 0.8 mg/dL (0.0-1.1) 06/12/18 22:30 AST 39 IU/L (14-46) 06/12/18 22:30 ALT 23 IU/L (9-52) 06/12/18 22:30 Alkaline Phosphatase 164 IU/L (38-126) H 06/12/18 22:30 Ammonia < 9.0 uMOL/L (9.0-30.0) L 06/12/18 22:45 Creatine Kinase 568 IU/L (0-156) H 06/12/18 22:30 CK-MB (CK-2) Fraction 6.14 ng/mL (0.00-4.55) H 06/12/18 22:30 CK-MB (CK-2) % 1.1 % (0.0-4.0) 06/12/18 22:30 Creatine Kinase Interp NEGATIVE (NEGATIVE) 06/12/18 22:30 Total Protein 7.1 g/dL (6.3-8.2) 06/12/18 22:30 Albumin 3.9 g/dL (3.5-5.0) 06/12/18 22:30 Lipase 181 IU/L (23-300) 06/12/18 22:30 Urine Color DUDLEY 06/12/18 23:00 Urine Appearance HAZY 06/12/18 23:00 Urine pH 5.0 (5.0-7.5) 06/12/18 23:00 Ur Specific [place] 1.020 (1.002-1.030) 06/12/18 23:00 Urine Protein 3+ (NEGATIVE) H 06/12/18 23:00 Urine Ketones NEGATIVE (NEGATIVE) 06/12/18 23:00 Urine Blood 2+ (NEGATIVE) H 06/12/18 23:00 Urine Nitrate NEGATIVE (NEGATIVE) 06/12/18 23:00 Urine Bilirubin NEGATIVE (NEGATIVE) 06/12/18 23:00 Urine Urobilinogen 4.0 EU (0.2-1.0) H 06/12/18 23:00 Ur Leukocyte Esterase 1+ (NEGATIVE) H 06/12/18 23:00 Urine RBC 50-182 /hpf (0-3) H 06/12/18 23:00 Urine WBC 50-182 /hpf (0-3) H 06/12/18 23:00 Ur Epithelial Cells TRACE /lpf (NONE-1+) 06/12/18 23:00 Urine Bacteria TRACE /hpf (NONE SEEN) H 06/12/18 23:00 Hyaline Casts 5-15 /lpf (0-1) 06/12/18 23:00 Urine Mucus TRACE /lpf (NONE-1+) 06/12/18 23:00 Urine Glucose 1+ (NEGATIVE) H 06/12/18 23:00 Urine Opiates Screen NON-NEGATIVE (NEGATIVE) H 06/12/18 23:00 Urine Barbiturates NEGATIVE (NEGATIVE) 06/12/18 23:00 Ur Phencyclidine Scrn NEGATIVE (NEGATIVE) 06/12/18 23:00 Ur Amphetamine Screen NEGATIVE (NEGATIVE) 06/12/18 23:00 U Benzodiazepines Scrn NON-NEGATIVE (NEGATIVE) H 06/12/18 23:00 Urine Cocaine Screen NEGATIVE (NEGATIVE) 06/12/18 23:00 U Marijuana (THC) Screen NEGATIVE (NEGATIVE) 06/12/18 23:00 Ethyl Alcohol < 10 mg/dL (0-10) 06/12/18 22:30 Imaging Review: Imaging Impressions Head CT 06/12/18 21:45 Impression: 1. Query posterior reversal encephalopathy. 2. No acute intracranial hemorrhage, subdural hematoma, or evidence of acute ischemia. Findings discussed with hospitalist physician, Dr. Bartlett at 06/12/2018 23 :44. Assessment & Plan Assessment: 63 yo F w/ metastatic colon CA presents with acute encephalopathy, dehydration, and SHANON. Plan: 1. Acute metabolic and toxic encephalopathy - I suspect her encephalopathy is multifactorial. She has essentially no memory of the last few days. EMS found her covered in her own stool with fentanyl lollipops "all over the house". She also has access to benzodiazepines so polypharmacy is clearly a concern. In addition, her UA is possibly suggestive of infection, which could be contributing. Finally, CT is concerning for PRES/RPLS. This could due to BP or cytotoxic chemotherapy agent (Sulfatinib). - MRI brain ordered for further evaluation - Limit centrally acting medications - Control BP overnight - Treat possible UTI as below 2. Possible UTI - UA suggestive of infection. Patient denies symptoms but her history is not entirely reliable at the moment. - CTX 1 g qD for now pending urine culture 3. SHANON - Most likely due to dehydration in setting of prolonged encephalopathy. - S/p 2 L IVF, continue mIVF overnight - Check FeNa, monitor BMP - Avoid nephrotoxic agents 4. Metastatic adenocarcinoma - Currently on Sulfatinib as part of phase 1 clinical trial; unclear when her last dose of this was. - On high doses of narcotics as an outpatient Diet - Regular pending swallow screen Code - Full Ppx - SCDs noting documented allergy to heparin analogues Dispo - Admit under observation status
[2018-06-13] MEDS: hydrALAZINE 25 MG TAB PO PRN ×2 (01:12→23:16)
[2018-06-13] MEDS: D5W 1/2 NS 1,000 ML IV SCH ×2 (01:21→10:39)
[2018-06-13 05:03] LABS: PLATELET COUNT 157 10^3/uL (150-400)
[2018-06-13] MEDS ORDERED: HYDROmorphONE/DILAUDID 1 MG/ML INJ IVP PRN (09:54)
--- NOTE | 2018-06-13 13:03 | HOSPPROG ---
Hospitalist Progress Note Assessment/Plan: 63 yo F w/ hx of metastatic colon CA present with concerns for confusion. Per report, she spoke with her daughter on the phone who became concerned about poor mental status. Her daughter, who is out of town, called EMS to perform a welfare check. EMS found the patient confused and covered in stool with feces throughout the home. EMS also reported to have found several fentanyl lollipops around the home. First encounter, chart reviewed. Reviewed her care w Dr Mace. * Acute metabolic and toxic encephalopathy -she is much clearer during my evaluation -concern for PRES (posterior leukoencephalopathy syndrome)-reviewed her MRI -has coexisting kidney disease and htn -concern in addition is fentanyl lollipops found in the house by EMS, concern for polypharmacy -will cont tight bp control -neurology, Dr Mace saw her -possibly from Sulfatinib. * Possible UTI - UA suggestive of infection - CTX 1 g qD for now pending urine culture * SHANON - Most likely due to dehydration in setting of prolonged encephalopathy. - S/p 2 L IVF, continue mIVF overnight - Check FeNa, monitor BMP - Avoid nephrotoxic agents * Metastatic adenocarcinoma - Currently on Sulfatinib as part of phase 1 clinical trial -asked Dr Mace to talk w Dr Maco Luis to discuss this medication and concern for causing the above *plan: get better control of her bp, PT and OT to see, she will require another midnight stay for f/u w kidney function, better management of blood pressure. Appreciate Dr Mace seeing her. Subjective: Savanna said she had fallen out of bed last night. Objective: Vital Signs Temp Pulse Resp BP Pulse Ox 36.8 C 91 20 170/101 H 95 06/13/18 11:41 06/13/18 11:41 06/13/18 11:41 06/13/18 11:41 06/13/18 11:41 Laboratory Results 06/13/18 04:52 06/13/18 04:52 06/12/18 06/13/18 06/14/18 05:59 05:59 05:59 Intake Total 2460 Output Total 600 200 Balance 1860 -200 - Physical Exam Constitutional: appears nourished Eyes: PERRL Ears, Nose, Mouth, Throat: hearing normal Cardiovascular: regular rate and rhythym Respiratory: no respiratory distress Gastrointestinal: normoactive bowel sounds Skin: warm, other (scrapes to knees bilaterally, bruise above left wrist area) Neurologic: other (alert and oriented, impulsive) Psychiatric: interacting appropriately ICD10 Worksheet Patient Problems: Problems Problem Status Onset Altered mental status, unspecified Acute Dehydration Acute Renal insufficiency Acute Abdominal pain Acute Colon cancer Acute Constipation Acute Hydrosalpinx Acute Ileus Acute Vomiting Acute
[2018-06-13] MEDS: oxyCODONE IR 5 MG TAB PO PRN ×2 (13:53→23:16)
[2018-06-13] MEDS: amLODIPine BESYLATE 5 MG TAB PO SCH (13:53)
[2018-06-13] MEDS ORDERED: POLYETHYLENE GLYCOL 3350 17 GM PKT PO PRN (14:40)
[2018-06-13] MEDS ORDERED: BISACODYL 10 MG SUPP PR PRN (14:40)
[2018-06-13] MEDS ORDERED: LACTULOSE 20 GM/30 ML UDCUP PO PRN (14:40)
[2018-06-13] MEDS: SENNOSIDES/DOCUSATE SODIUM TAB PO SCH (19:43)
--- NOTE | 2018-06-13 20:43 | PDMN ---
Medical Necessity Medical necessity: [facility] neurology acute metabolic and toxic encephalopathy , with poss UTI, SHANON, PMH metastatic adenocarcinoma, further monitoring, eval and tx needed > 2 MN> satus changed on 06/13 for ongoing med nec.
--- NOTE | 2018-06-13 21:58 | GCON ---
NEUROLOGY CONSULT. DATE OF CONSULTATION: 06/13/2018 REFERRING PHYSICIAN: Jayda Candelaria NP CHIEF COMPLAINT: Confusion and abnormal MRI HISTORY OF PRESENT ILLNESS: Ms. Guzman is a very pleasant, 63-year-old lady who has a known history of metastatic colon cancer. Apparently yesterday, her daughter called her to check in with her; her daughter is out of town. She seemed confused on the phone and EMS did a welfare check and found her significantly confused with stool and feces around the home. They also found several fentanyl lollipops around the house. She was quite confused and brought into the emergency department for evaluation. In the ED, she was noted to be dehydrated with acute kidney injury, elevated CK and her blood pressure started climbing after admission. It is now understood that she had not been taking her Norvasc, likely causing the high blood pressure. Her neuro imaging, including MRI brain showed abnormalities of multifocal T2- hyperintense abnormalities throughout the bilateral posterior head regions and anterior head regions consistent with posterior reversible encephalopathy syndrome (PRES). Her mental status is improving with medical treatment of her underlying kidney injury, blood pressure, etc. REVIEW OF SYSTEMS: A review of systems was done and only pertinent to the HPI. For past medical history, social history, family history, home medications, allergies, see Dr. Hopson's H and P. EXAM: VITAL SIGNS: Blood pressure now is 170s over 90s. She is afebrile at 36.3, heart respirations 16. GENERAL: The patient is awake, alert, very pleasant. She has some psychomotor slowing, but has a normal language exam. She names 5/5, follows commands 5/5, repeats 5/5. On cranial nerve exam, her face is symmetric. Extraocular movements are full. To gross visual confrontational exam, I could not detect any obvious visual field deficits. There is no convulsive activity in my presence. On motor exam, there is some right-sided weakness in the upper extremity; she feels this is new. This certainly would be consistent with the abnormalities on MRI. IMPRESSION/PLAN: 1. Posterior reversible encephalopathy syndrome (PRES). 2. Metastatic colon cancer. Overall, the patient's clinical presentation of confusion and MRI brain findings are consistent with PRES. The patient is on a clinical trial chemotherapy called Sulfatinib. As far as I understand, after speaking at length with her Oncologist, Dr. Tobin, PRES has not been reported with this chemotherapy. However, I did review the literature and found that similar chemotherapy agents in a similar class have been reported with PRES. We discussed the specific agents at length with Dr. Tobin. Therefore, one formulation would be that the patient developed PRES from her chemotherapy, which then caused confusion, which resulted in her not eating and drinking properly, leading to dehydration and acute kidney injury. In addition , she may have taken extra pain medication exacerbating confusion. Finally, apparently with the confusion, she did not take her Norvasc, which caused the secondary or the symptomatic high blood pressures we are seeing here. Therefore, it may be that the chemotherapy began the cascade of events with the initiation of PRES syndrome. Discussed at length with the patient, hospitalist , and oncologist taking care of her. Going forward, we need to address her acute kidney injury with rehydration and elevated blood pressure with reinstitution of her home medications and monitor her here closely. The medical team is agreeable with the plan. Disposition peer therapies and overall progress of the patient resolving from this confusion. Considering this may be a new adverse effect from her chemotherapy, I will leave it to her oncologist regarding reporting the possible adverse effect and the medication will be discontinued for the time being. I counseled the patient and her oncologist that clinical and radiographic recovery may take up to 3 months. She will likely clinically improve prior to complete MRI resolution. Her oncologist agreed to follow up with her and repeat a brain MRI in 8 to 10 weeks to ensure resolution of signal changes and that there are no other abnormalities to suggest metastatic abnormalities. He is agreeable to the plan. Based on her radiographic and clinical resolution, then her oncologist can re-introduce a different chemotherapy agent for her underlying cancer. If there are any further clinical or radiographic questions or if resolution does not progress as expected with PRES, they will obtain neurologic consultation at the [facility], department neurology - with possible consultation with Neuro-Oncology. No further recommendations now. This was all discussed at length with the patient, our Dr. Tobin, her Oncologist, and Hospital Medicine. Hospital Medicine will manage the medical problems mentioned above. No further recommendations. We will continue to follow up as needed. Dr. Dos Santos takes over the service tomorrow, you can contact him if there are any recurrent questions or changes in neurologic status with this very pleasant patient. Forty-five total minutes today on the floor reviewing literature, the patient's medical records, speaking to her oncologist, Hospital Medicine, and coordination of care along with direct counseling. /[id number]/MODL MARK
[2018-06-13] MEDS: HYDROmorphONE/DILAUDID 1 MG/ML INJ IVP PRN (23:17)
[2018-06-14] MEDS: ACETAMINOPHEN 325 MG TAB PO PRN ×2 (00:34→05:45)
[2018-06-14] MEDS: hydrALAZINE 25 MG TAB PO PRN (04:36)
[2018-06-14] MEDS: HYDROmorphONE/DILAUDID 1 MG/ML INJ IVP PRN ×2 (04:36→08:56)
[2018-06-14] MEDS: oxyCODONE IR 5 MG TAB PO PRN (05:32)
[2018-06-14] MEDS: amLODIPine BESYLATE 5 MG TAB PO SCH (07:38)
--- NOTE | 2018-06-14 10:33 | ASMTCMCOM ---
CM Note CM Note Notes: CM spoke to pts daughter Arcelia on the phone. PT is recommending SNF. Arcelia will speak to pt about SNF. Arcelia feels that it would be better if it came from her. Arcelia would like referrals made to [facility] and [facility] in [place]. Non triggering pasrr completed. CM to follow. Plan: SNF Date Signed: 06/14/2018 10:32 AM Electronically Signed By:JULIANE Melvin
[2018-06-14] MEDS ORDERED: POLYETHYLENE GLYCOL 3350 17 GM PKT PO PRN (10:37)
[2018-06-14] MEDS ORDERED: OXYMETAZOLINE 30 ML NASAL SPRAY EACHNARE PRN (10:37)
[2018-06-14] MEDS ORDERED: IBUPROFEN 200 MG TAB PO PRN (10:37)
[2018-06-14] MEDS ORDERED: amLODIPine BESYLATE 5 MG TAB PO ONE (10:40)
[2018-06-14] MEDS: oxyCODONE CR 80 MG TAB PO SCH ×2 (11:33→20:44)
[2018-06-14] MEDS: SENNOSIDES/DOCUSATE SODIUM TAB PO SCH ×2 (12:08→20:59)
[2018-06-14] MEDS: FLUoxetine 20 MG CAP PO SCH (12:17)
--- NOTE | 2018-06-14 13:53 | HOSPPROG ---
Hospitalist Progress Note Assessment/Plan: 63 yo F w/ hx of metastatic colon CA present with concerns for confusion. Per report, she spoke with her daughter on the phone who became concerned about poor mental status. Her daughter, who is out of town, called EMS to perform a welfare check. EMS found the patient confused and covered in stool with feces throughout the home. EMS also reported to have found several fentanyl lollipops around the home. * Acute metabolic and toxic encephalopathy due to PRES syndrome -resolved as far as confusion, will need a repeat MRI w her oncologist -has coexisting kidney disease and htn -possibly from Sulfatinib. *hypokalemia -will add a dose of potassium this evening. * Possible UTI -culture show e coli -ceftriaxone, will dc after tomorrow dose * SHANON - Most likely due to dehydration in setting of prolonged encephalopathy. - much improved * Metastatic adenocarcinoma - Currently on Sulfatinib as part of phase 1 clinical trial -asked Dr Mace to talk w Dr Maco Luis *plan:reviewed her care w her daughter, Arcelia ([phone]). Her mom is not at her baseline mentally. Reviewed the therapies notes and SNF placement is recommended. Will further discuss w Savanna tomorrow. Savanna spoke with Dr Luis today - he will discontinue the Sulfatinib. Savanna is sad about this because this was working for her and there are not other treatment options. > 40 minutes caring and working w Savanna. Subjective: Savanna has no c/o pain Objective: Vital Signs Temp Pulse Resp BP Pulse Ox 36.7 C 92 18 155/80 H 97 06/14/18 11:50 06/14/18 11:50 06/14/18 11:50 06/14/18 12:17 06/14/18 11:50 Laboratory Results 06/14/18 05:45 06/13/18 06/14/18 06/15/18 05:59 05:59 05:59 Output Total 600 Balance -600 - Physical Exam Constitutional: no apparent distress, appears nourished, not in pain Eyes: PERRL Ears, Nose, Mouth, Throat: hearing normal Cardiovascular: regular rate and rhythym Respiratory: no respiratory distress Gastrointestinal: normoactive bowel sounds, other (soft mass noted on her abdomen (patient said it is smaller than it use to be)) Neurologic: AAOx3 Psychiatric: interacting appropriately ICD10 Worksheet Patient Problems: Problems Problem Status Onset Altered mental status, unspecified Acute Dehydration Acute Renal insufficiency Acute Abdominal pain Acute Colon cancer Acute Constipation Acute Hydrosalpinx Acute Ileus Acute Vomiting Acute
[2018-06-14] MEDS: HYDROmorphONE/DILAUDID 4 MG TAB PO PRN (14:54)
[2018-06-14] MEDS ORDERED: POTASSIUM CL 20 MEQ TAB PO ONE (16:26)
[2018-06-14] MEDS ORDERED: CALCIUM CARBONATE 500 MG CHEWABLE TAB PO PRN (18:02)
--- NOTE | 2018-06-14 20:56 | PDCONSULT ---
Production Graphic Designer Note: History of Present Illness: Patient is a 63 year old female with metastatic colon cancer on phase 1 clinical trial with FGFR inhibitor, Sulfatinib, admitted for encephalopathy secondary to PRES. According to documentation, EMS was called by patient's daughter due to a concerning phone call she had with her mother. EMS found the patient confused and covered in stool with feces throughout the home. In the ED her work-up was notable for hypovolemia, SHANON, proteinuria/hematuria/pyuria. CT scan of head performed was concerning for PRES/RPLS. MRI brain 06/13 demonstrated some new subcortical lesions in parieto-occipital lobes. She was evaluated by neurology and was felt to have PRES. BP has been in the 160s-200s/80s-100s since admission. Patient reports not really remembering the last few days. She feels wel currently without complaints. Past Medical History: Metastatic colon cancer Past Surgical History: Colectomy Hysterectomy Social History: No history of tobacco or drugs Family History: No family history of cancer Review of Systems: A complete 14 points ROS was negative unless indicated in the [facility] Allergies and Medications review in EMR Physical Examination: VS reviewed General: no acute distress, non toxic HEENT: pupils are equal round and reactive to light, no icterus or pallor, tongue with bruising Neck: supple without adenopathy Cardiovascular: Regular in rate and rhythm without rubs thrills or gallops Chest: Clear to auscultation and percussion in bilateral posterior lungs Abdomen: soft, nontender, non distended without hepatosplenomegaly Extremities: warm and well perfused, no edema Neurologic: alert and oriented x 3, CN II-XII intact Labs reviewed Assessment and Plan: Patient is a 63 year old female with metastatic colon cancer on phase 1 trial with FGFR inhibitor, Sulfatinib, admitted for encephalopathy secondary to PRES. #PRES Likely culprit is Sulfatinib. Difficult to definitively determine if drug related as this is an experimental drug. Certainly VEGF inhibition can cause elevated BP would can precipitate PRES. Patient is somewhat clear with me, from a mental status standpoint, however nurse reports minutes before she was delirious. BP has been in the 180s/100s consistently. -continue BP control -discontinue study drug -agree with treatment of possible UTI #Delirium Likely multifactorial from polypharmacy, PRES and possible UTI. #Pyuria/hematuria/proteinuria No SHANON, perhaps has UTI. Would consider assessing extent of proteinuria. Serum albumin normal. #Metastatic colon cancer She is on experimental therapy with FGFR inhibition with grade 4 toxicity thus this will need to be stopped. She has progressed on all conventional therapies. We discussed this reality when it appeared she was mentating appropriately. She reports she will continue experimental therapy even if she has to go to [place] to receive it. It is uncertain her level of comprehension at this point given her delirium.
[2018-06-15 06:41] LABS: PLATELET COUNT 131 10^3/uL (150-400)
--- NOTE | 2018-06-15 08:31 | HOSPPROG ---
Hospitalist Progress Note Assessment/Plan: 63 yo F w/ hx of metastatic colon CA present with concerns for confusion. Per report, she spoke with her daughter on the phone who became concerned about poor mental status. Her daughter, who is out of town, called EMS to perform a welfare check. EMS found the patient confused and covered in stool with feces throughout the home. EMS also reported to have found several fentanyl lollipops around the home. * Acute metabolic and toxic encephalopathy due to PRES syndrome - much improved, but not at her baseline per family - will need a repeat MRI w her oncologist - has coexisting kidney disease and htn - likely from Sulfatinib. - she is c/o ongoing dizziness *hypokalemia -stable * Possible UTI -culture show e coli -ceftriaxone, dc today * SHANON - - creat is 1.2 * Metastatic adenocarcinoma - Currently on Sulfatinib as part of phase 1 clinical trial-this now is discontinued -asked Dr Mace to talk w Dr Maco Luis -appreciate Dr Anthony seeing Savanna *chronic pain due to the above -patient and family are concerned about her pain medications -oncology has been ordering her medications per the patient, and she won't be followed by them for treating her cancer -[place] [employer] pegboard clerk team has spoken w the patient's daughter about getting Savanna lined up with the pain clinic *plan: Likely dc tomorrow to [facility]. Subjective: Savanna is feeling better but is dizzy at times Objective: Vital Signs Temp Pulse Resp BP Pulse Ox 36.9 C 58 L 16 147/74 H 96 06/15/18 07:43 06/15/18 07:43 06/15/18 07:43 06/15/18 07:43 06/15/18 07:43 Laboratory Results 06/15/18 06:13 06/15/18 06:13 06/14/18 06/15/18 06/16/18 05:59 05:59 05:59 Intake Total 800 Output Total 600 225 Balance -600 575 - Physical Exam Constitutional: no apparent distress, not in pain Eyes: PERRL Ears, Nose, Mouth, Throat: hearing normal Cardiovascular: regular rate and rhythym Respiratory: no respiratory distress Gastrointestinal: normoactive bowel sounds, other (has a formed mass on her abdomen) Skin: warm Psychiatric: interacting appropriately, not anxious, poor memory ICD10 Worksheet Patient Problems: Problems Problem Status Onset Altered mental status, unspecified Acute Dehydration Acute Renal insufficiency Acute Abdominal pain Acute Colon cancer Acute Constipation Acute Hydrosalpinx Acute Ileus Acute Vomiting Acute
[2018-06-15] MEDS: FLUoxetine 20 MG CAP PO SCH (09:28)
[2018-06-15] MEDS: MULTIVITAMINS 1 EACH TAB PO SCH (09:28)
[2018-06-15] MEDS: oxyCODONE CR 80 MG TAB PO SCH ×2 (09:30→20:06)
[2018-06-15] MEDS: SENNOSIDES/DOCUSATE SODIUM TAB PO SCH ×2 (09:30→20:06)
[2018-06-15] MEDS: HYDROmorphONE/DILAUDID 4 MG TAB PO PRN ×2 (11:44→11:53)
--- NOTE | 2018-06-15 14:46 | ASMTCMCOM ---
CM Note CM Note Notes: Pts case discussed w/ Jayda Candelaria NP and Kelin, RN. CM spoke to pts daughter Arcelia. She has chosen [facility]. A palliative has been ordered. Pt will no longer get cancer treatments. CM met w/ pt. Pt is agreeable to going to [facility]. Updates sent to [facility]. CM to follow. Plan: [facility] Date Signed: 06/15/2018 02:45 PM Electronically Signed By:JULIANE Melvin
--- NOTE | 2018-06-15 22:05 | SOAPPROG ---
SOAP Progress Note Assessment/Plan: Assessment and Plan: Patient is a 63 year old female with metastatic colon cancer on phase 1 trial with FGFR inhibitor, Sulfatinib, admitted for encephalopathy secondary to PRES. #PRES Likely culprit is Sulfatinib. Difficult to definitively determine if drug related as this is an experimental drug. Certainly VEGF inhibition can cause elevated BP would can precipitate PRES. BP well controlled currently. She seems to be back to baseline -continue BP control -hold study drug based on study protocol -continue with treatment of possible UTI #Delirium Likely multifactorial from polypharmacy, PRES and possible UTI. #Pyuria/hematuria/proteinuria No SHANON, perhaps has UTI. Would consider assessing extent of proteinuria. Serum albumin normal. #Metastatic colon cancer She is on experimental therapy with FGFR inhibition with grade 4 toxicity thus this will need to be stopped. She has progressed on all conventional therapies. We discussed this reality when it appeared she was mentating appropriately. She reports she will continue experimental therapy even if she has to go to [place] to receive it. 06/15/18 22:05 Subjective: Patient reports feeling well. NO headaches, no changes in vision. No new symptoms. Objective: Vital Signs Temp Pulse Resp BP Pulse Ox 36.7 C 89 16 153/89 H 96 06/15/18 19:35 06/15/18 19:35 06/15/18 19:35 06/15/18 19:35 06/15/18 19:35 Laboratory Results 06/15/18 06:13 06/15/18 06:13 06/14/18 06/15/18 06/16/18 05:59 05:59 05:59 Intake Total 800 Output Total 600 225 Balance -600 575 Physical Examination: VS reviewed General: no acute distress, non toxic HEENT: pupils are equal round and reactive to light, no icterus or pallor, tongue with bruising Neck: supple without adenopathy Cardiovascular: Regular in rate and rhythm without rubs thrills or gallops Chest: Clear to auscultation and percussion in bilateral posterior lungs Abdomen: soft, nontender, non distended without hepatosplenomegaly Extremities: warm and well perfused, no edema Neurologic: alert and oriented x 3, CN II-XII intact ICD10 Worksheet Patient Problems: Problems Problem Status Onset Altered mental status, unspecified Acute Dehydration Acute Renal insufficiency Acute Abdominal pain Acute Colon cancer Acute Constipation Acute Hydrosalpinx Acute Ileus Acute Vomiting Acute
[2018-06-16] MEDS: oxyCODONE CR 80 MG TAB PO SCH (08:39)
[2018-06-16] MEDS: HYDROmorphONE/DILAUDID 4 MG TAB PO PRN (08:40)
[2018-06-16] MEDS: FLUoxetine 20 MG CAP PO SCH (08:40)
[2018-06-16] MEDS: MULTIVITAMINS 1 EACH TAB PO SCH (08:40)
[2018-06-16] MEDS: SENNOSIDES/DOCUSATE SODIUM TAB PO SCH (08:42)
[2018-06-16] MEDS ORDERED: LOSARTAN POTASSIUM 25 MG TAB PO SCH (11:15)
--- NOTE | 2018-06-16 11:19 | HOSPPROG ---
Hospitalist Progress Note Assessment/Plan: 63 yo F w/ hx of metastatic colon CA present with concerns for confusion. Per report, she spoke with her daughter on the phone who became concerned about poor mental status. Her daughter, who is out of town, called EMS to perform a welfare check. EMS found the patient confused and covered in stool with feces throughout the home. EMS also reported to have found several fentanyl lollipops around the home. * Acute metabolic and toxic encephalopathy due to PRES syndrome - much improved, but not at her baseline per family - will need a repeat MRI w her oncologist - has coexisting kidney disease and htn - likely from Sulfatinib/now discontinued - dizziness has resolved *hypokalemia -stable * Possible UTI -culture show e coli -treated * SHANON w proteinuria - creat is 1.1 -will start her on an ARB and have her f/u w her PCP *shingles -treat w Acyclovir -place on precautions * Metastatic adenocarcinoma - Currently on Sulfatinib as part of phase 1 clinical trial-this now is discontinued -asked Dr Mace to talk w Dr Maco Luis -appreciate Dr Anthony seeing Savanna *chronic pain due to the above -patient and family are concerned about her pain medications -oncology has been ordering her medications per the patient, and she won't be followed by them for treating her cancer -[place] [employer] watch leader team has spoken w the patient's daughter about getting Savanna lined up with the pain clinic *plan: dc to [facility]. Subjective: Savanna is feeling fine, anxious to go. Objective: Vital Signs Temp Pulse Resp BP Pulse Ox 36.8 C 60 16 153/83 H 98 06/16/18 08:00 06/16/18 08:00 06/16/18 08:00 06/16/18 08:39 06/16/18 08:00 Laboratory Results 06/15/18 06:13 06/16/18 06:10 06/15/18 06/16/18 06/17/18 05:59 05:59 05:59 Intake Total 800 400 Output Total 225 Balance 575 400 - Physical Exam Constitutional: uncomfortable Eyes: PERRL Ears, Nose, Mouth, Throat: hearing normal Respiratory: no respiratory distress Skin: other (small area of 3 little reddened areas, no vesicles (above the coccyx area)) Musculoskeletal: full muscle strength Neurologic: AAOx3 Psychiatric: interacting appropriately ICD10 Worksheet Patient Problems: Problems Problem Status Onset Altered mental status, unspecified Acute Dehydration Acute Renal insufficiency Acute Abdominal pain Acute Colon cancer Acute Constipation Acute Hydrosalpinx Acute Ileus Acute Vomiting Acute
[2018-06-16] MEDS ORDERED: valACYclovir 500 MG TAB PO SCH (11:30)
[2018-06-16 11:47] VITALS: BP 134/88
[2018-06-16] MEDS ORDERED: valACYclovir 500 MG TAB PO PRN ×2 (11:50→12:00)
--- NOTE | 2018-06-16 15:04 | PDIAF ---
Addendum entered and electronically signed by Jayda Candelaria NP 06/16/18 15 :11: please treat HSV for 7 days and then prn w Valtrex if needed. Patient has metastatic adenocarcinoma. Original Note: - Diagnosis Diagnosis: PRES syndrome, acute renal failure, uti, HSV Code Status: Full Code - Medication Management Discharge Medications: electronically signed and located in the Home Medication List. - Orders Services needed: Physical Therapy, Occupational Therapy, Speech Language Pathologist Isolation Type: None, Contact Isolation Diet Texture: Regular Texture Diet, Thin Liquids, Meds Whole w/Liquids Additional Instructions: Cozaar is a new drug for Savanna, started for hypertension, proteinuria monitor kidney function closely DURING HER HOSPITAL STAY, NO FENTANYL WAS GIVEN, ORAL DILAUDID DOSE WAS LOWER THAN HER HOME DOSE. Her long acting pain medications were continued Follow up w Dr Mota, Dr Pryor. Savanna needs a f/u MRI to be sure her PRES syndrome has resolved. follow up with her PCP in 1-2 weeks - Labs/Radiology BMP Date: 06/21/18 (weekly) Imaging Orders: will need a f/u MRI per oncology team - Follow Up Care Current Providers and Referrals: Patient,NotPresent [Unknown] - As per Instructions Diana Swann MD [Primary Care Provider] - Shashank Mascorro MD [Medical Doctor] -
--- NOTE | 2018-06-16 15:08 | ASMTLACE ---
LACE Length of stay for Answers: 3 days current admission Acuity / Level of Answers: Yes Care: Did the patient have an inpatient admission? Comorbidities - select Answers: Any tumor (including all that apply lymphoma or leukemia) Opioid dependence / Chronic pain Other Notes: Hep A; HTN # of Emergency department Answers: 1-2 visits in the last 6 months Score: 14 Date Signed: 06/16/2018 03:08 PM Electronically Signed By:Jaycee Shook RN
--- NOTE | 2018-06-16 15:55 | ASMTDCNOTE ---
Case Management Discharge Discharge Order Complete? Answers: Yes Patient to Obtain Answers: Other Notes: [facility] Transportation Arranged Answers: Other Notes: [facility] will Pick (Date 06/16/2018 05:00 PM & Time) Faxed Final Orders Answers: Yes Agency/Facility Transfer Answers: Yes Report Printed & Faxed to Receiving Agency Family Notified Answers: Yes Discharge Comments Notes: D/w [employer], final orders faxed. [facility] notified and RN to call report. Date Signed: 06/16/2018 03:36 PM Electronically Signed By:Jaycee Shook RN
--- NOTE | 2018-06-16 16:14 | GDS ---
DISCHARGE DIAGNOSES: 1. 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 2. Hypokalemia. 3. Urinary tract infection. 4. Acute kidney injury with proteinuria. 5. Herpes simplex virus. 6. Metastatic adenocarcinoma. 7. Chronic pain due to the above. HISTORY: Briefly, the patient is a 63-year-old female with history of metastatic colon cancer. She was brought in out of concern for confusion. The daughter tried to call her mom and was concerned about her poor mental status. Her daughter was out of town. She called EMS to perform a welfare check. EMS found the patient confused and covered in stool and feces throughout the home. It was also noted that she had multiple fentanyl lollipops around the house. She was brought to the hospital. She had a brain MRI performed, which showed new multifocal hyperintense cortical/subcortical lesions throughout the bilateral parieto-occipital lobes, bifrontal and cerebellum, which may be a typical manifestation of posterior reversible encephalopathy. She was seen and evaluated by Neurology, who agreed that she likely had PRES. In addition, she was seen by Dr. Sanjay Mota with Hematology/Oncology. It was noted that the likely culprit is sulfatinib. It was difficult to tell if this was drug related because the patient also has hypertension and renal failure. At this time, the medication will be discontinued. HOSPITAL COURSE: 1. Acute metabolic and toxic encephalopathy. This is due to the PRES. She is slowly improving. Her daughter says she is not at her baseline. She will need a repeat MRI to make sure this is resolving. She has coexisting kidney disease and hypertension. Her sulfatinib is now discontinued. 2. Hypokalemia, stable. 3. Urinary tract infection. This grew out E coli. She was treated with ceftriaxone. 4. Acute kidney injury with proteinuria. Started her on ARB and will have her follow up with her primary care provider. 5. HSV infection. She is on acyclovir for the next 7 days. 6. Metastatic adenocarcinoma. Further followup with Oncology. She is very sad because there are not really other treatment options. 7. Chronic pain. Her pain medications have been resumed. DISCHARGE CONDITION: Stable. Blood pressure is 134/88, heart rate of 90, respiratory rate of 16, O2 saturation on room air 95%. Temperature is 36.6 Celsius. DISCHARGE MEDICATIONS: Please see the EMR. DISCHARGE INSTRUCTIONS: 1. For her to follow up with Oncology and get a repeat MRI. 2. Cozaar is a new drug for her to help treat her hypertension and proteinuria. 3. To follow up with her PCP in 1-2 weeks. Greater than 30 minutes discharging and coordinating the patient's care. /[id number]/MODL MTDD
--- NOTE | 2018-06-17 12:09 | ASDISCHSUM ---
Discharge Information Plan Status:SNF Medically Cleared to Leave: Discharge Date:06/16/2018 05:23 PM D/C Disposition:Snf Facility ADT D/C Disposition:Snf Facility Projected Discharge Date:06/15/2018 11:00 AM Transportation at D/C:Wheelchair Van Discharge Delay Reason: Follow-Up Date:06/15/2018 11:00 AM Discharge Slot: Final Diagnosis: Placement Information Referral Type:*[facility]/SNF Referral ID:[id number] Provider Name:Dereck cisneros [place] Address 1:[address] Address 2: City:[place] Selection Factors: State:[place] Patient Contact Information Contact Name:RAQUEL Relationship:Daughter Address: Work Phone: City: [facility] Phone: [facility] Code: Email: Financial Information Financial Class:Medicare Advantage Plans Primary Plan Desc:[facility] Primary Plan Number:[id number] Secondary Plan Desc: Secondary Plan Number: Assessment Information LACE LACE Length of stay for Answers: 3 days current admission Acuity / Level of Answers: Yes Care: Did the patient have an inpatient admission? Comorbidities - select Answers: Any tumor (including all that apply lymphoma or leukemia) Opioid dependence / Chronic pain Other Notes: Hep A; HTN # of Emergency department Answers: 1-2 visits in the last 6 months Score: 14 Date Signed: 06/16/2018 03:08 PM Electronically Signed By:Jaycee Shook RN [facility] Progress Note CM Note CM Note Notes: CM spoke to pts daughter Arcelia on the phone. PT is recommending SNF. Arcelia will speak to pt about SNF. Arcelia feels that it would be better if it came from her. Arcelia would like referrals made to [facility] and [facility] in [place]. Non triggering pasrr completed. CM to follow. Plan: SNF Date Signed: 06/14/2018 10:32 AM Electronically Signed By:JULIANE Melvin [facility] Progress Note CM Note CM Note Notes: Pts case discussed w/ Jayda Candelaria NP and DAMARI Neville. CM spoke to pts daughter Areclia. She has chosen [facility]. A palliative has been ordered. Pt will no longer get cancer treatments. CM met w/ pt. Pt is agreeable to going to [facility]. Updates sent to [facility]. CM to follow. Plan: [facility] Date Signed: 06/15/2018 02:45 PM Electronically Signed By:JULIANE Melvin Case Management Discharge Plan Note Case Management Discharge Discharge Order Complete? Answers: Yes Patient to Obtain Answers: Other Notes: [facility] Transportation Arranged Answers: Other Notes: [facility] will Pick (Date 06/16/2018 05:00 PM & Time) Faxed Final Orders Answers: Yes Agency/Facility Transfer Answers: Yes Report Printed & Faxed to Receiving Agency Family Notified Answers: Yes Discharge Comments Notes: D/w [employer], final orders faxed. Roxie at [facility] notified and RN to call report. Date Signed: 06/16/2018 03:36 PM Electronically Signed By:Jaycee Shook RN Intervention Information Intervention Type:*IM-Signed Date of Service:06/16/2018 03:19 PM Patient Type:Inpatient Staff Member:Tosin Luevano Hours: Discipline: Severity: Comment:
== END 2018-06-16 17:23 | DRG 71 ==
LOC: EDUNIT# → F3E 06-13 00:20 → OBSVTOIN 06-13 14:40
PROVIDERS: ADMIT Student in an Organized Health Care Education/Training Program; ATTEND Internal Medicine
DX: I67.83 Posterior reversible encephalopathy syndrome (principal); T45.1X5A Adverse effect of antineoplastic and immunosuppressive drugs, initial encounter; N39.0 Urinary tract infection, site not specified; B96.20 Unspecified Escherichia coli [E. coli] as the cause of diseases classified elsewhere; N17.9 Acute kidney failure, unspecified; C79.9 Secondary malignant neoplasm of unspecified site; E87.6 Hypokalemia; R80.9 Proteinuria, unspecified; E86.0 Dehydration; I10 Essential (primary) hypertension; B00.9 Herpesviral infection, unspecified; Z85.038 Personal history of other malignant neoplasm of large intestine; Z90.49 Acquired absence of other specified parts of digestive tract
CPT/HCPCS: 80305; 92526-GN; 92610-GN; 97116-GP; 97161-GP; 97166-GO; 97530-GO; 97530-GP; 97535-GO; G0378; G0480; G8978-GP-CJ; G8979-GP-CH; G8987-GO-CL; G8988-GO-CJ; G8996-GN-CH; G8997-GN-CH; G8998-GN-CH; J0696; J1170; J2270

== ENCOUNTER → 2018-07-12 | Outpatient (CLI) | payer OTHER ==
[~2018-07-12] MED LIST changes: -GADOBUTROL 10 ML VIAL IVP ONE; -IOPAMIDOL (ISOVUE-300) 100 ML BTL ONE; +LIDOCAINE 1% 300 MG/30 ML SDV ONE
== END ==
LOC: FIMAGING 11:57
PROVIDERS: ATTEND Internal Medicine Hematology & Oncology
PROC: 0WBF3ZX Excision of Abdominal Wall, Percutaneous Approach, Diagnostic (ICD-10-PCS; principal; 2018-07-12)
DX: L98.8 Other specified disorders of the skin and subcutaneous tissue (principal)

== ENCOUNTER 2018-11-13 12:05 | Inpatient (IN) | payer OTHER ==
--- NOTE | 2018-11-13 12:14 | EDPHY ---
H & P Stated Complaint: abd pain Time Seen by Provider: 11/13/18 12:12 - Personal History Current Tetanus/Diphtheria Vaccine: Yes Tetanus Vaccine Date: 10/2010 - Medical/Surgical History Hx Asthma: No Hx Chronic Respiratory Disease: No Hx Diabetes: No Hx Cardiac Disease: No Hx Renal Disease: No Hx Cirrhosis: No Hx Alcoholism: No Hx HIV/AIDS: No Hx Splenectomy or Spleen Trauma: No Other PMH: colon ca, colectomy, mulitple hernia repairs with mesh, - Social History Smoking Status: Never smoked Constitutional: Initial Vital Signs Heart Rate 61 11/13/18 12:07 Respiratory Rate 20 11/13/18 12:07 O2 Sat (%) 99 11/13/18 12:07 O2 Delivery Mode Nasal Cannula O2 (L/minute) 2 Allergies/Adverse Reactions: Heparin Analogues Allergy (Severe, Verified 11/13/18 12:11) Other-Enter Comments panitumumab Allergy (Verified 11/13/18 12:11) Home Medications: Medication Instructions Recorded FLUoxetine [Prozac 20 MG (*)] 20 mg PO DAILY 06/14/18 Fexofenadine HCl [Ethel Allergy] 60 mg PO BID PRN 06/14/18 HYDROmorphone HCL [Dilaudid 4 mg 8 - 16 mg PO Q6HRS PRN 06/14/18 (*)] Herbals/Supplements -Info Only 1 ea PO DAILY 06/14/18 Ibuprofen [Motrin (*)] 400 mg PO Q6HRS PRN 06/14/18 Loperamide HCl [Imodium 2 mg (*)] 2 mg PO TID PRN 06/14/18 Loratadine [Claritin 10 mg] 10 mg PO DAILY PRN 06/14/18 Mometasone Furoate Nasal [Nasonex] 1 sprays NASAL DAILY PRN 06/14/18 Multivitamins [Multivitamin (*)] 1 each PO DAILY 06/14/18 Oxymetazoline HCl [Afrin Nasal 2 spray EACHNARE DAILY PRN 06/14/18 [place]] Polyethylene Glycol 3350 [Miralax 17 gm PO DAILY PRN 06/14/18 17 gm (*)] Prochlorperazine Maleate 10 mg PO Q6HRS PRN 06/14/18 [Compazine 10mg (*)] Pseudoephedrine HCl [Sudafed 30mg 30 mg PO Q6HRS PRN 06/14/18 (OTC)] Zolpidem Tartrate [Ambien] 10 mg PO HS PRN 06/14/18 amLODIPine BESYLATE [Norvasc 10 mg 10 mg PO DAILY 06/14/18 (*)] fentaNYL CITRATE [Abstral] 200 mcg SL Q4HRS PRN 06/14/18 methYLPHENIDATE HCL [Ritalin 10mg 10 mg PO BID@08,14 06/14/18 (*)] oxyCODONE HCL [Oxycontin] 80 mg PO BID 06/14/18 Acetaminophen [Tylenol 325mg (*)] 650 mg PO Q4HRS PRN tab 06/16/18 Calcium Carbonate [Tums 500MG (*)] 500 mg PO TID PRN tab.chew 06/16/18 Losartan Potassium [Cozaar 25 mg 12.5 mg PO DAILY #0 tab 06/16/18 (*)] Sennosides/Docusate Sodium 1 - 2 tab PO BID tab 06/16/18 [Senokot-S] valACYclovir [Valtrex (*)] 500 mg PO TID 7 Days #20 tab 06/16/18 Medical Decision Making - Diagnostics Imaging Results: Imaging Impressions Abdomen CT 11/13/18 12:19 Impression: 1. Increased moderate to severe right hydronephrosis with ureteral dilatation to the mid pelvis, possibly related to the central pelvic mass, although it does not appear significantly changed in size. 2. Stable chronic left hydronephrosis, secondary to an irregular pelvic mass. 3. Grossly stable hepatic metastases. 4. Grossly stable abdominal wall and pelvic lesions. 5. Stable lung metastases 6. Additional findings as above. Findings discussed with Dr. Jose Alejandro Angel on November 13, 2018 at 1404 hours. Imaging: Discussed imaging studies w/ human intelligence Radiologist, I viewed and interpreted images myself ED Course/Re-evaluation: CHIEF COMPLAINT: Nausea, vomiting, abdominal pain HISTORY OF PRESENT ILLNESS: The patient is a 63 y/o female with a history of colon cancer requiring a colectomy complaining of worsening nausea and vomiting onset 03:00am, 7 hours ago. Her symptoms are associated with fevers and chills. The patient reports that she normally does not have these symptoms associated with her colon cancer. Her abdominal pain today is no worse than it normally is. She is followed by Dr. Mascorro, hematology/oncology. No headache, lightheadedness, chest pain, heart palpitations, shortness of breath, cough, numbness, paresthesias. REVIEW OF SYSTEMS: A comprehensive 10 system review of systems is otherwise negative aside from elements mentioned in the history of present illness and medical decision making. PHYSICAL EXAM: HR, BP, O2 Sat, RR. Temp noted General Appearance: Appears uncomfortable, alert, well hydrated, appropriate, and non-toxic appearing. Head: Atraumatic without scalp tenderness or obvious injury Eyes: Pupils equal, round, reactive to light and accommodation, EOMI, no trauma , no injection. Ears: Clear bilaterally, no perforation, normal landmarks Nose: Atraumatic, no rhinorrhea, clear. Throat: There is no erythema or exudates, no lesions, normal tonsils, mucus membranes moist. Neck: Supple, 2+ carotid upstroke, nontender, no lymphadenopathy. Respiratory: No retractions, no distress, no wheezes, and no accessory muscle use. Lungs are clear to auscultation bilaterally. Cardiovascular: Regular rate and rhythm, no murmurs, rubs, or gallops. Bilateral carotid, radial, dorsalis pedis, and posterior tibial pulses intact. Good capillary refill all extremities. Gastrointestinal: Abdomen is soft, non-distended, no rebound, no guarding, no peritoneal signs. Musculoskeletal: Anterior abdominal wall tumor with diffuse abdominal tenderness. Normal active ROM of all extremities, atraumatic. Neurological: Alert, appropriate, and interactive. The patient has normal DTRs and non-focal cranial nerves, motor, sensory, and cerebellar exam. Skin: No rashes, good turgor, no nodules on palpation. 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 No other acute findings. DIFFERENTIAL DIAGNOSIS: The differential diagnosis for the patient's abdominal pain included but was not limited to metastatic colon cancer, hydronephrosis, ovarian cyst, pelvic inflammatory disease, ovarian torsion, urinary tract infection, ectopic , cholecystitis, and appendicitis. MEDICAL DECISION MAKING: The patient is a 63 y/o female with a history of colon cancer requiring a colectomy presenting with worsening nausea and vomiting onset 03:00am, 7 hours ago. The patient reports that she normally does not have these symptoms associated with her colon cancer. Her abdominal pain today is no worse than it normally is. On exam I can feel an anterior abdominal wall tumor with diffuse abdominal tenderness. She also appears very uncomfortable. Labs and abdominopelvic CT ordered; 1L IV NS, 1mg Dilaudid, 30mg IV Toradol, 12.5mg IV Phenergan, and 4mg IV Zofran administered. 1401: Patient is still nauseated and in pain; 0.5mg IV Dilaudid and 12.5mg IV Phenergan administered. 1410: I spoke with Dr. Abraham, radiologist, regarding patient's abdominopelvic CT. The patient has right-sided hydronephrosis due to the tumor obstructing the right kidney. This has been present intermittently on prior CT scans. There are no other acute findings. Patient's labs are primarily unremarkable also. She will need to be admitted for this. 1418: Reassessed patient and discussed imaging and laboratory findings. I have discussed plan for admission, which she and her family are comfortable with. I will page the hospitalist and oncology. 1420: I consulted with Dr. Castelan, hospitalist, who accepts admission of this patient for intractable vomiting, dehydration, metastatic colon cancer, and hydronephrosis due to the tumor. 1427: I spoke with patient's daughter on the phone regarding imaging and laboratory findings as well as plan for admission. Her concern is that when the patient becomes hospitalized, she tends to go into withdrawal due to her significant opiate tolerance. 1429: I consulted with Dr. Mascorro, oncologist, regarding this patient. He agrees to consult on this patient during her admission. 1342: I consulted with Dr. Castelan, regarding patient's opiate tolerance and withdrawal. Patient is now safe to be transferred to the floor. - Data Points Laboratory Results: Laboratory Results 11/13/18 12:32 11/13/18 12:32 11/13/18 11/13/18 11/13/18 12:43 12:32 12:32 WBC 7.74 10^3/uL 10^3/uL (3.80-9.50) RBC 4.57 10^6/uL 10^6/uL (4.18-5.33) Hgb 13.9 g/dL g/dL (12.6-16.3) POC Hgb 14.6 gm/dL gm/dL (12.6-16.3) Hct 41.4 % % (38.0-47.0) POC Hct 43 % % (38-47) MCV 90.6 fL fL (81.5-99.8) MCH 30.4 pg pg (27.9-34.1) MCHC 33.6 g/dL g/dL (32.4-36.7) RDW 14.6 % % (11.5-15.2) Plt Count 206 10^3/uL 10^3/uL (150-400) MPV 9.1 fL fL (8.7-11.7) Neut % (Auto) 89.1 % H % (39.3-74.2) Lymph % (Auto) 7.8 % L % (15.0-45.0) [place] % (Auto) 2.2 % L % (4.5-13.0) Eos % (Auto) 0.1 % L % (0.6-7.6) Baso % (Auto) 0.3 % % (0.3-1.7) Nucleat RBC Rel Count 0.0 % % (0.0-0.2) Absolute Neuts (auto) 6.90 10^3/uL H 10^3/uL (1.70-6.50) Absolute Lymphs (auto) 0.60 10^3/uL L 10^3/uL (1.00-3.00) Absolute Monos (auto) 0.17 10^3/uL L 10^3/uL (0.30-0.80) Absolute Eos (auto) 0.01 10^3/uL L 10^3/uL (0.03-0.40) Absolute Basos (auto) 0.02 10^3/uL 10^3/uL (0.02-0.10) Absolute Nucleated RBC 0.00 10^3/uL 10^3/uL (0-0.01) Immature Gran % 0.5 % % (0.0-1.1) Immature Gran # 0.04 10^3/uL 10^3/uL (0.00-0.10) POC Sodium 138 mEq/L mEq/L (135-145) Sodium 138 mEq/L mEq/L (135-145) POC Potassium 3.4 mEq/L mEq/L (3.3-5.0) Potassium 3.8 mEq/L mEq/L (3.5-5.2) POC Chloride 101 mEq/L mEq/L (97-110) Chloride 100 mEq/L mEq/L (97-110) Carbon Dioxide 24 mEq/l mEq/l (22-31) POC Total CO2 24 mEq/L mEq/L (22-31) Anion Gap 14 mEq/L mEq/L (6-14) POC BUN 11 mg/dL mg/dL (7-23) BUN 13 mg/dL mg/dL (7-23) Creatinine 0.8 mg/dL mg/dL (0.6-1.0) POC Creatinine 0.8 mg/dL mg/dL (0.6-1.0) Estimated GFR > 60 Glucose 175 mg/dL H mg/dL (70-100) POC Glucose 179 mg/dL H mg/dL (70-100) Calcium 9.8 mg/dL mg/dL (8.5-10.4) Total Bilirubin 0.4 mg/dL mg/dL (0.1-1.4) Conjugated Bilirubin 0.3 mg/dL mg/dL (0.0-0.5) Unconjugated Bilirubin 0.1 mg/dL mg/dL (0.0-1.1) AST 46 IU/L IU/L (14-46) ALT 54 IU/L H IU/L (9-52) Alkaline Phosphatase 192 IU/L H IU/L (38-126) Total Protein 7.4 g/dL g/dL (6.3-8.2) Albumin 4.6 g/dL g/dL (3.5-5.0) Lipase 31 IU/L IU/L (23-300) Medications Given: Discontinued Medications Hydromorphone HCl (Dilaudid) 1 mg IVP EDNOW ONE Stop: 11/13/18 12:19 Last Admin: 11/13/18 12:33 Dose: 1 mg Hydromorphone HCl (Dilaudid) 0.5 mg IVP EDNOW ONE Stop: 11/13/18 14:01 Last Admin: 11/13/18 14:06 Dose: 0.5 mg Sodium Chloride (Ns) 1,000 mls @ 0 mls/hr IV EDNOW ONE; Wide Open PRN Reason: Protocol Stop: 11/13/18 12:19 Last Admin: 11/13/18 12:32 Dose: 1,000 mls Ketorolac Tromethamine (Toradol) 30 mg IVP EDNOW ONE Stop: 11/13/18 12:19 Last Admin: 11/13/18 12:33 Dose: 30 mg Ondansetron HCl (Zofran) 4 mg IVP EDNOW ONE Stop: 11/13/18 12:19 Last Admin: 11/13/18 12:34 Dose: 4 mg Promethazine HCl (Phenergan) 12.5 mg IVP ONCE ONE Stop: 11/13/18 12:47 Last Admin: 11/13/18 12:56 Dose: 12.5 mg Promethazine HCl (Phenergan) 12.5 mg IVP ONCE ONE Stop: 11/13/18 14:01 Last Admin: 11/13/18 14:03 Dose: 12.5 mg Point of Care Test Results: Chemistry 11/13/18 12:43 POC Sodium 138 mEq/L mEq/L (135-145) POC Potassium 3.4 mEq/L mEq/L (3.3-5.0) POC Chloride 101 mEq/L mEq/L (97-110) POC Total CO2 24 mEq/L mEq/L (22-31) POC BUN 11 mg/dL mg/dL (7-23) POC Creatinine 0.8 mg/dL mg/dL (0.6-1.0) POC Glucose 179 mg/dL H mg/dL (70-100) ISTAT H&H 11/13/18 12:43 POC Hgb 14.6 gm/dL gm/dL (12.6-16.3) POC Hct 43 % % (38-47) Departure - Departure Disposition: [facility] Acute Clinical Impression: Metastatic colon cancer in female, Dehydration Nausea and vomiting Qualifiers: Vomiting type: unspecified Vomiting Intractability: intractable Qualified Code( s): R11.2 - Nausea with vomiting, unspecified Hydronephrosis Qualifiers: Hydronephrosis type: with other ureteral stricture Qualified Code(s): N13.1 - Hydronephrosis with ureteral stricture, not elsewhere classified Condition: Fair Referrals: Shashank Mascorro MD [Primary Care Provider] - As per Instructions Report Scribed for: Jose Alejandro Angel Report Scribed by: Ariadna Cadet Date of Report: 11/13/18 Time of Report: 12:15
[2018-11-13] MEDS ORDERED: NS 1,000 ML IV ONE (12:18)
[2018-11-13] MEDS ORDERED: HYDROmorphONE/DILAUDID 2 MG/ML INJ IVP ONE (12:18)
[2018-11-13] MEDS ORDERED: KETOROLAC 30 MG/1 ML SDV IVP ONE (12:18)
[2018-11-13] MEDS ORDERED: ONDANSETRON 4 MG/2 ML VIAL IVP ONE (12:18)
[2018-11-13 12:43] LABS: PLATELET COUNT 206 10^3/uL (150-400)
[2018-11-13] MEDS ORDERED: PROMETHAZINE HCL 25 MG/ML INJ IVP ONE ×2 (12:46→14:00)
[2018-11-13] MEDS ORDERED: IOPAMIDOL (ISOVUE-300) 100 ML BTL ONE (13:19)
[2018-11-13] MEDS ORDERED: PROMETHAZINE HCL 25 MG/ML INJ ONE (13:59)
[2018-11-13] MEDS ORDERED: HYDROmorphONE/DILAUDID 1 MG/ML INJ ONE (13:59)
[2018-11-13] MEDS ORDERED: HYDROmorphONE/DILAUDID 1 MG/ML INJ IVP ONE (14:00)
[2018-11-13] MEDS ORDERED: ONDANSETRON DISINTEGRATING 4 MG TAB PO PRN (14:35)
[2018-11-13] MEDS ORDERED: METOCLOPRAMIDE 10 MG/2 ML VIAL IVP PRN (14:35)
[2018-11-13] MEDS ORDERED: HYDROmorphONE/DILAUDID 1 MG/ML INJ IVP PRN (14:35)
[2018-11-13] MEDS: NS W/ 20 KCl/L 1,000 ML IV SCH (15:48)
[2018-11-13] MEDS: hydrALAZINE 20 MG/ML VIAL IVP PRN ×2 (16:31→22:35)
[2018-11-13] MEDS: HYDROmorphONE/DILAUDID 1 MG/ML INJ IVP PRN ×5 (16:32→23:14)
[2018-11-13] MEDS ORDERED: POLYETHYLENE GLYCOL 3350 17 GM PKT PO PRN (17:22)
[2018-11-13] MEDS ORDERED: HYDROMORPHONE HCL PO PRN (17:22)
[2018-11-13] MEDS ORDERED: [UNRECOGNIZED DRUG - REMARK] PO PRN (17:22)
[2018-11-13] MEDS ORDERED: OXYMETAZOLINE 30 ML NASAL SPRAY EACHNARE PRN (17:22)
[2018-11-13] MEDS: PROMETHAZINE HCL 25 MG/ML INJ IVP PRN (17:58)
[2018-11-13] MEDS ORDERED: FUROSEMIDE 40 MG/4 ML VIAL IVP ONE (18:30)
[2018-11-13] MEDS: ACETAMINOPHEN 325 MG TAB PO PRN (19:24)
[2018-11-13] MEDS: LORazepam 2 MG/ML INJ IVP PRN (19:24)
[2018-11-13] MEDS: OXYCODONE MYRISTATE PO SCH (20:40)
[2018-11-13] MEDS: FENTANYL SL SCH (20:40)
[2018-11-13] MEDS: SENNOSIDES/DOCUSATE SODIUM TAB PO SCH (20:40)
[2018-11-13] MEDS: ONDANSETRON 4 MG/2 ML VIAL IVP PRN (21:54)
[2018-11-13] MEDS: ZOLPIDEM TARTRATE 5 MG TAB PO PRN (22:22)
--- NOTE | 2018-11-13 23:18 | GHP ---
[f rep st] HISTORY AND PHYSICAL DATE OF ADMISSION: 11/13/2018 CHIEF COMPLAINT: Nausea with vomiting and confusion with elevated blood pressures. HISTORY OF PRESENT ILLNESS: The patient is a 63-year-old female with a past medical history of hyper tension and relatively recent diagnosis of a posterior reversible encephalopathy syndrome, who has un derlying widely metastatic colon cancer who presented to the [facility] on 11/13/2018, with complaints of nausea and vomiting. She was unable to keep her home antihyperte nsive medications down. She was also noted to be quite hypertensive with a blood pressure of 202/98. Her daughter, who was present with her at the time of my evaluation, thought she seemed mildly conf used as well. After admission to the hospital, she was noted to have a temperature of 38.3. Blood c ultures and chest x-ray ordered. She had a urinalysis in the emergency room, which did not show any evidence of infection. She had a CT scan of her abdomen and pelvis in the emergency room. This show ed stable metastatic disease and otherwise did not show any obvious source of infection. It did show increased [id number] right-sided hydronephrosis with stable left-sided hydronephrosis. A CT scan of the head was ordered after her daughter noted the confusion and this was read as normal. She was initially admitted to [address] [place] [address]. Throughout the evening, her blood pressures remained quite el evated with systolics between 180 and 200 and never really came down after leaving the emergency room . She was given 50 mg of hydralazine IV with no effect and then later given Lasix 40 mg IV, again wi th minimal effect. At that point in time, I decided to transfer her to the ICU in order to administe r a nicardipine drip with a goal systolic blood pressure between 150 and 170. PAST MEDICAL HISTORY: 1. History of posterior reversible encephalopathy syndrome in June of 2018. 2. Hypertension. 3. Metastatic colon cancer. PAST SURGICAL HISTORY: 1. Colectomy. 2. Hysterectomy. MEDICATIONS: 1. Compazine 10 mg every 6 hours as needed for nausea and vomiting. 2. Amlodipine 10 mg daily. 3. Fentanyl spray 2 sprays sublingual 4 times a day. 4. Prozac 20 mg daily. 5. Hydromorphone 8 to 16 mg as needed 4 times a day. 6. Losartan 12.5 mg daily. 7. Ritalin 10 mg daily. 8. Oxycodone 36 mg twice a day. 9. MiraLAX 17 g daily. 10. Zolpidem 10 mg nightly as needed. ALLERGIES: Heparin analogs. FAMILY HISTORY: No family history of colon cancer. SOCIAL HISTORY: The patient is a nonsmoker. She lives alone. REVIEW OF SYSTEMS: CONSTITUTIONAL: No complaints of any subjective fevers or chills. ENT: No comp laints of any localizing sinus pain. CARDIOVASCULAR: No complaints of any chest pains or chest pres sure. No neck pain. RESPIRATORY: No complaints of productive cough or shortness of breath. GASTRO INTESTINAL: Positive for nausea with emesis, which was nonbloody. GENITOURINARY: No report of any difficulty with urination, cloudy urine or burning with urination. NEUROLOGIC: No complaints of any localizing headache or photophobia. No localizing weakness. HEMATOLOGIC: No history of any deep v ein thrombosis or pulmonary embolism. PSYCHIATRIC: The patient is on SSRI therapy. ENDOCRINE: No complaints of polyuria or heat intolerance. SKIN: No new skin rashes. MUSCULOSKELETAL: No focal j oint pains. PHYSICAL EXAM: VITAL SIGNS: Temperature max 38.3, blood pressure 202/98, heart rate 113, respiratio ns 30, saturating 98% on 2 L. GENERAL: Patient appears quite fatigued. She was conversant and answ er questions appropriately, but did not expand much on her answers. Also patient nontoxic appearing. HEENT: Extraocular movements intact. No scleral icterus was noted. NECK: Supple. No thyroid en largement appreciated. CHEST: Clear to auscultation. Normal respiratory effort. HEART: Regular r ate and rhythm. No murmurs appreciated. ABDOMEN: Soft, nontender. Normal bowel sounds. No locali zing tenderness. EXTREMITIES: Trace edema both lower extremities. NEUROLOGICAL: Cranial nerves 2 through 12 appear grossly intact. LABORATORY STUDIES: White blood cell count 7, hemoglobin 13, platelets 206. Sodium is 138, potassiu m 3.8, chloride 100, bicarb 24, BUN 13, creatinine 0.8, glucose 175, AST 46, ALT 54, alk phos 182, bi lirubin is 0.4. Lipase 31. IMAGING STUDIES: Abdomen CT: Increased [id number] right-sided hydronephrosis with ureteral dilatation to mid pelvis, possibly related to the central pelvic mass. Stable left hydronephrosis. Stable hepatic metastases. Abdominal wall and pelvic lesions, stable lung metastases as well. CT scan head: No acute intracranial pathology. ASSESSMENT AND PLAN: 1. Encephalopathy, possibly hypertensive encephalopathy. She has persistently elevated blood pressu res since her admission and has not able to take her home antihypertensive secondary to nausea and vo miting. I have transferred her to the intensive care unit to initiate nicardipine drip with a goal s ystolic between 150 and 170. 2. Accelerated hypertension. As above. 3. Nausea and vomiting. No obvious etiology on CT imaging. She has not had any constipation. Stat es she has been having bowel movements on a daily basis. Lipase is within normal limits as are liver enzymes. For now, I recommend supportive IV fluids. Antiemetics as needed. Consider abdominal ult rasound but the patient has had her gallbladder removed in the past. 4. Fever. Urinalysis unremarkable. Blood cultures have been obtained and chest x-ray ordered. She is hemodynamically stable, so we will await these before initiating antibiotic therapy. Procalciton in also ordered with morning labs. 5. Acute hypoxic respiratory failure. Patient is needing a small amount of oxygen. Await chest x-r ay results. 6. Edema. Considering she has widely metastatic colon cancer, we will obtain lower extremity ultras ounds to evaluate for the possibility of deep vein thrombosis. 7. Right-sided hydronephrosis, increased. Stable on left. Her BUN and creatinine are within normal limits. 8. History of posterior reversible encephalopathy syndrome. This was felt secondary to a biologic a gent she was on for her colon cancer. No evidence of recurrence of by CT imaging. 9. Hypertension. Typically on low-dose losartan and amlodipine as an outpatient. These are on hold in light of her nausea and vomiting. 10. Colon cancer. Stable metastatic disease by imaging. Oncology was consulted on the case. We wi ll await further recommendations. 11. Deep venous thrombosis prophylaxis. Lovenox. 12. Disposition. I recommend admission under inpatient status. /[id number]/MODL
[2018-11-14] MEDS: HYDROmorphONE/DILAUDID 1 MG/ML INJ IVP PRN ×6 (00:13→21:09)
[2018-11-14] MEDS: niCARdipine/NACL 200 ML IV SCH ×3 (00:40→08:49)
[2018-11-14] MEDS: NS W/ 20 KCl/L 1,000 ML IV SCH ×2 (00:45→15:16)
[2018-11-14] MEDS: PROMETHAZINE HCL 25 MG/ML INJ IVP PRN ×2 (00:48→07:39)
[2018-11-14] MEDS ORDERED: NS 1,000 ML IV ONE (01:31)
[2018-11-14] MEDS: CALCIUM CARBONATE 500 MG CHEWABLE TAB PO PRN (03:12)
[2018-11-14] MEDS: ONDANSETRON 4 MG/2 ML VIAL IVP PRN ×2 (03:14→10:00)
[2018-11-14 05:25] LABS: PLATELET COUNT 262 10^3/uL (150-400)
[2018-11-14] MEDS: FENTANYL SL SCH ×3 (06:56→20:55)
[2018-11-14] MEDS: ACETAMINOPHEN 325 MG TAB PO PRN (07:06)
[2018-11-14] MEDS: SENNOSIDES/DOCUSATE SODIUM TAB PO SCH ×2 (07:08→20:56)
[2018-11-14] MEDS: FLUoxetine 20 MG CAP PO SCH (07:08)
[2018-11-14] MEDS: LOSARTAN POTASSIUM 25 MG TAB PO SCH (07:08)
--- NOTE | 2018-11-14 07:26 | PDMN ---
Medical Necessity Medical necessity: MCG: M370 vomiting A-1 day: Admission is indicated for 1 or more of the following: Hemodynamic instability,. 63yoF with PMHX met. colon Ca, posterior reversible encephalopathy, HTN, Presents with N/V, elevated BP, tachycardia, BP persistently elevated since admission, tachycardia, fever , elevated trop., CT scan shows increased mod to severe R sided hydronephrosis with stable L sided hydronephrosis. anticipate > 2 MN ongoing med nec care.
[2018-11-14] MEDS ORDERED: NS BOLUS 500 ML (Wide open) IV ONE (07:30)
[2018-11-14] MEDS: OXYCODONE MYRISTATE PO SCH (07:32)
[2018-11-14] MEDS: LORazepam 2 MG/ML INJ IVP PRN (07:40)
[2018-11-14] MEDS ORDERED: PROTOCOL POTASSIUM 1 DOSE MISC PRN (09:33)
[2018-11-14] MEDS ORDERED: PROTOCOL MAGNESIUM 1 DOSE IV PRN (09:33)
[2018-11-14] MEDS ORDERED: MAGNESIUM SULF 1 GM/DEXTROSE 100 ML IV ONE (09:37)
[2018-11-14] MEDS ORDERED: LABETALOL HCL 5 MG/ML 20 ML MDV ONE (09:48)
--- NOTE | 2018-11-14 09:50 | HOSPPROG ---
Hospitalist Progress Note Assessment/Plan: DIAGNOSES: * Acute Metabolic Encephalopathy, resolving * Intractable Nausea vomiting, multifactorial with vertigo, cancer pain, intra- abdominal mass and other factors involved * Accelerated HTN - likely caused by combination of pain, nausea, and inability to take in her antihypertensives - current meds norvasc 10, losartan 12.5 at home, Cardene drip and p.r.n. Hydralazine have been used here so far as well * Fever - uncertain etiology but no recurrence this morning * Acute Hypoxemic Resp Failure * Sinus Tachycardia, may be a side effect of hydralazine she received last night * Elevation of Cardiac Troponin, suspect due to hypertension but as it is rising will need to further assess for possible coronary issues * chronic pain of malignancy on chronic prescribed narcotic -notably her pain has been difficult in that her insurance required her to changed from OxyContin to a temper proof oxycodone which she had side effects and other trouble with so she stopped taking it; also she has recently apparently read run out of her fentanyl spray, and this is apparently a medicine that she has to get from a pharmacy in [place] by mail order -while most of her pain is abdominal pain and appears likely due to her abdominal mass, she also has what sounds like some neuropathic pain and 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 Benign Positional Vertigo? / Ongoing persistent vertigo with occasional increase in vertigo with rotational movements but no loss of hearing or pain or tinnitus in the ears -notably the vertigo seemed to start around the time of her PRES episode, and initially was felt due to that but it has not really resolved as the rest of that syndrome resolved * Hypomagnesemia/Hypokalemia likely due to nausea vomiting and poor intake * Moderately Severe R hydronephrosis appears worse than on previous scan/stable L hydronephrosis, caused by her tumor but retains renal function at this time * Stage IV Colon CA with large abdominal mass and widespread metastases * metabolic acidosis acute due to above issues * hyperglycemia * Hx recent PRES syndrome late 2018 Seen by me on hospitalist rounds as well as multidisciplinary rounds I reviewed in detail today with Dr. Otto Infante as well as Dr. Shashank Mascorro PLANS: * Continue management of blood pressure and try to switch to oral medicines at this time * Will resume her OxyContin 80 mg twice daily * I will review with the patient the option to add some gabapentin for the neuropathic part of her pain * Further titration of pain management depending on her response * Repeat troponin at this time and repeat EKG, consider echocardiogram and cardiology consultation if indicated * Once all of her nausea vomiting pain and blood pressure/cardiac issues are stabilized, will consult physical therapy to address her for possible Bartolo maneuvers for possible benign positional vertigo > 45 mins critical care time at bedside today in multiple visits SUBJECTIVE: Still with significant nausea Not able to keep anything down Still with abdominal pain which is her usual recent abdominal pain, primarily lower and low left quadrant, continues to have bowel movements normally Does recall having rigors with her fever episode yesterday but none since Does admit that she does have some occasional paresthesias suggesting neuropathic pain Does OBJECTIVE Vitals reviewed: Still hypertensive but blood pressure coming down after a dose of IV labetalol this morning; had some significant tachycardia for several hours after dose of hydralazine that is now resolved. 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 Exam: alert oriented Looks uncomfortable from nausea and pain but not in distress skin warm dry color ok no jaundice resps not labored lungs clear BSs heart regular abd soft nondistended; quite tender particularly across lower abdomen but no rebound, bowel sounds present limbs warm, no edema iv site ok Lab data: 2nd troponin slightly higher 0.16 Potassium a bit low at 3.4 glucose remains bit high 155 renal function stable CO2 is now low at 20 WBC elevated at 10.8 otherwise stable CBC Objective: Vital Signs Temp Pulse Resp BP Pulse Ox 36.7 C 131 H 24 H 168/86 H 95 11/14/18 07:16 11/14/18 07:51 11/14/18 07:51 11/14/18 07:51 11/14/18 07:51 Laboratory Results 11/14/18 04:50 11/14/18 04:50 11/13/18 11/14/18 11/15/18 06:59 06:59 06:59 Intake Total 2308 Output Total 950 Balance 1358 ICD10 Worksheet Patient Problems: Problems Problem Status Onset Dehydration Acute Hydronephrosis Acute Metastatic colon cancer in female Acute Nausea and vomiting Acute Abdominal pain Acute Altered mental status, unspecified Acute Colon cancer Acute Constipation Acute Hydrosalpinx Acute Ileus Acute Renal insufficiency Acute Vomiting Acute
[2018-11-14] MEDS: POTASSIUM Cl (KCl) 50 ML IV SCH ×3 (09:52→11:03)
[2018-11-14] MEDS ORDERED: LABETALOL HCL 5 MG/ML 20 ML MDV IV ONE ×2 (10:00→12:45)
[2018-11-14] MEDS: HYDROmorphONE/DILAUDID 4 MG TAB PO PRN ×2 (10:10→16:30)
--- NOTE | 2018-11-14 12:09 | ASMTCMCOM ---
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 The patient was initially admitted to [address] [place] [address] and transferred to ICU to address hypertension. Oncology consulting on case. Patients daughter Arcelia was involved in her last hospitalization in 06/2018. Patient discharged to [facility]. Physical Therapy orders placed, currently pending evaluation. CM to follow. D/C Plan: TBD, possible SNF. Date Signed: 11/14/2018 12:08 PM Electronically Signed By:Lalita Santacruz
[2018-11-14] MEDS ORDERED: [UNRECOGNIZED DRUG - REMARK] PO PRN (12:30)
[2018-11-14 13:04] LABS: CREATINE KINASE 891 IU/L (0-156)
--- NOTE | 2018-11-14 13:18 | GCON ---
[f rep st] CONSULTATION CRITICAL CARE CONSULTATION DATE OF CONSULTATION: 11/14/2018 HPI: This patient is a 63-year-old female with known metastatic colon cancer and hypertension, who h as been having nausea and vomiting, particularly over the last couple of days, which has been getting worse. She has been unable to keep anything down and therefore, stopped taking her antihypertensive s. She had some alteration in mental status and a T-max of 38.3. She presented to the emergency dep artment and found a blood pressure of 202/98. She had a CT scan of her abdomen that showed stable me tastatic disease and a head CT was negative. She was transferred to the floor, where she had persist ently elevated blood pressure and was treated with Lasix and hydralazine, but this was consistently h igh. She has been also having difficulty with chronic vertigo since an episode of posterior reversib le encephalopathy syndrome diagnosed in May. At that time, she was on a study drug for her colo n cancer, which resulted in an increase in her blood pressure. She has been getting her care coordin ated between the local [facility] as well as the [facility] in [place]. In any case, she said she felt much better today, but complained of ongoing vertigo and nausea. She mccloud s had less vomiting since she has been here, but said that multiple medications have been tried witho ut success in terms of the nausea and vomiting. Blood work was otherwise normal including a procalci tonin. REVIEW OF SYSTEMS: Otherwise negative. PAST MEDICAL HISTORY: Includes: 1. Colon cancer, as described above. 2. Chronic pain. 3. Hypertension. 4. Shingles. 5. Iron deficiency anemia. 6. Small bowel obstruction that was treated conservatively. 7. PRES syndrome, as described in May 2018. 8. Heparin-induced thrombocytopenia. 9. Skin toxicity with chemotherapy. 10. Chronic vertigo, as described above. 11. Chronic sinus disease. PAST SURGICAL HISTORY: Includes a colostomy at the time of the perforation when her colon cancer 1st diagnosed in 2010. She has also had a liver lobectomy in the past. SOCIAL HISTORY: She is a nonsmoker. FAMILY HISTORY: Noncontributory. CURRENT MEDICATIONS: Include Tylenol, Norvasc, Tums, Prozac, Dilaudid, Ativan, Cozaar, Ritalin, mike rdipine drip, Zofran, Afrin, MiraLAX, normal saline with 20 K, Phenergan, Ambien, Senokot. PHYSICAL EXAM: VITAL SIGNS: Her blood pressure was 155/92 with a heart rate of 120 and sinus tachyc ardia, respiratory rate 22, oxygen saturation 96% on room air. GENERAL: She was overweight, but lyi ng in bed, no apparent distress and able to speak in full sentences without using accessory muscles f or breathing. Alert and oriented x3. HEENT: Pupils were equally round and reactive to light, nonic teric and noninjected. Mucous membranes moist without erythema or exudate. NECK: Supple without ad enopathy or jugular vein distention. RESPIRATORY: Breath sounds were clear to auscultation bilatera lly without wheezes, rubs, rales. HEART: Regular rate and rhythm without murmurs, rubs, gallops. A BDOMEN: Tender, particularly in the left upper quadrant without rebound or guarding. Bowel tones we re hypoactive. EXTREMITIES: No clubbing, cyanosis, or edema. NEUROLOGIC: Nonfocal, including cran ial nerves, deep tendon reflexes. SKIN: Warm and dry without evidence of rash. OBJECTIVE DATA: Includes the imaging studies as described above. Her white count was 10.8 with anthony tocrit 45, platelets 262. Basic metabolic panel showed a potassium of 3.4, but was otherwise fairly unremarkable. Mag was low at 1.5. Troponin was 0.09, then 0.16, then 0.19. Urinalysis was unremark able. One blood culture was drawn, but is negative to date. ASSESSMENT PLAN: 1. Poorly controlled hypertension, likely from medication noncompliance, driven primarily by her michael sea and vomiting. In any case, she was given a dose of labetalol with excellent response and the Car dene drip is off so she can probably return to the floor. She may need longer-term control with othe r medications depending on whether or not we can control her nausea and vomiting. 2. Emesis. She has Zofran and Phenergan. We could consider Compazine. Scopolamine was added this morning. Hopefully, this will help. 3. Chronic pain. Oncology has been to the ICU, suggested resuming some of her narcotics to help con trol her pain moving forward. 4. Vertigo. This is a perplexing issues. She has been treated with meclizine in the past without d ifficulty. Potentially, scopolamine will help, but there is no obvious pathology on her head CT to paula alexander this, and as far as I know, this is an uncommon long-term effect of the PRES syndrome. /[id number]/MODL
--- NOTE | 2018-11-14 13:39 | GCON ---
[f rep st] CONSULTATION INPATIENT ONCOLOGY CONSULTATION DATE OF CONSULTATION: 11/14/2018 REQUESTING PHYSICIAN: Dr. Joao Reynoso. REASON FOR CONSULTATION: Colon cancer, nausea, and pain. PRESENT ILLNESS: The patient is a 63-year-old woman with an 8 year history of metastatic colorectal cancer. She has been on a variety of therapies, most recently FOLFOX. The oxaliplatin was dropped due to infusion reaction, and she has been receiving 5-FU alone. CT scan last week showed an improvement in her tumor burden. She has multiple intraabdominal tumors, including the liver and peritoneum. As a result of her cancer, she has chronic pain and is on long and short-acting opioid narcotics. For many years, she was taking OxyContin 80 mg b.i.d. with good relief. Recently, her insurance company demanded that we try alternative long-acting narcotics, neither of which were effective. Most recently, she was taking Xtampza, which she said did not adequately control her pain and was causing worsening nausea. I ordered OxyContin for her last week, but it has still not been approved by her insurance. In the meantime, she tried taking more Xtampza, and then yesterday woke up with worsening abdominal pain and nausea and vomiting. She came to the hospital and was admitted for symptom management. Her blood pressure was markedly elevated on arrival, though she states that she had not taken her blood pressure pills in the morning due to her pain. Both her blood pressure and pain are improved this morning. PAST HISTORY: 1. Colorectal cancer, as described above. 2. Chronic pain due to malignancy. 3. History of posterior reversible leukoencephalopathy, as a result of an oral VGEF inhibitor, given as part of a clinical trial in June 2018. ALLERGIES: Oxaliplatin. FAMILY HISTORY: Noncontributory. SOCIAL HISTORY: She is nonsmoker, nondrinker, and lives alone. REVIEW OF SYSTEMS: Aside from the pertinent positives in the HPI, a 14-point review of systems is negative. EXAMINATION: VITAL SIGNS: Her temperature was 36.7, blood pressure 138/77, heart rate 98, oxygen saturation 94% on room air. GENERAL: She was in no acute distress. HEENT : Sclerae anicteric. Oropharynx clear. NECK: Supple with no lymphadenopathy. LUNGS: Clear to auscultation bilaterally. CARDIAC: Regular rate and rhythm. No murmurs, gallops, or rubs. ABDOMEN: Normoactive bowel sounds. It was nondistended. There was a central mass about 5 cm in size , which was somewhat tender to palpation. This is a stable finding compared to previous exams. EXTREMITIES: No edema. NEUROLOGIC: Alert and oriented x3. Strength and sensation were intact. LABORATORY DATA: White count 10.87, hemoglobin of 15.2, platelets of 262. Comprehensive metabolic panel was unremarkable. IMPRESSION: This is a 63-year-old woman with a longstanding history of metastatic colorectal cancer, admitted for nausea and pain. This is due to inadequate pain control. She is feeling better now. A CT scan did not reveal any evidence of an acute process that would explain this. RECOMMENDATIONS: 1. We will restart the patient on OxyContin 80 mg twice daily, which worked for long-term pain control for her. She can also take Dilaudid PO for breakthrough pain, which she has been doing at home. 2. I will have my office staff follow up tomorrow with her insurance company to see what the delay is in getting the OxyContin prescription filled, as we have complied with their demands to try alternatives, which have failed. 3. Blood pressure has come down nicely with the reinstitution of her blood pressure medications, and I do not think that was the primary problem leading to this admission. 4. The patient is due for chemotherapy on Thursday, November 17. /[id number]/MODL MTDD
--- NOTE | 2018-11-14 15:17 | ECHO ---
[email or web address] [address] Main: [phone] Echocardiography Examination Transthoracic Name: AHSAN PALOMINO MR#: [id number] Study Date: 11/14/2018 Study Time: 02:28 PM Date of : 1955 Age: 63 year(s) Height: 162.6 cm (64 in.) Weight: 68.95 kg (152 lb.) BSA: 1.74 m2 Gender: Female Examination: Echo Contrast: Image Quality: Adequate Rhythm: Tachycardia Heart Rate: 97 bpm BP: 173 mmHg/86 mmHg Indication: nausea, back pain, elev trop, tachycardia, ST changes Procedure Staff Referring Physician: It Professional: Adrienne Snowden CHIN Reading Physician: Lucas Gtz MD Requesting Provider: Ordering Physician: Joao Reynoso Indication: nausea, back pain, elev trop, tachycardia, ST changes Measurements Chambers AV/MV Label Value Normal Value Label Value Normal Value LVOT Vmax 1.06 m/s (0.7m/s - 1.1m/s) AV PGmax 8 mmHg LVOTd 2 cm (1.8cm - 2cm) AV Vmax 1.44 m/s LVDd, 2D 4.5 cm (3.9cm - 5.3cm) SHANTI (Vmax) 2.3 cm2 LVDs, 2D 3.1 cm (2.1cm - 4cm) MV E Vmax 0.8 m/s IVSd, 2D 1.1 cm (0.6cm - 1.1cm) MV A Vmax 0.92 m/s LVPWd, 2D 0.9 cm MV E/A 0.87 LVEF, BP 61 % (55% - 70%) MV E/E' lateral 8.5 LVEF, 2D 59 % (54% - 74%) MV E/E' septal 10.3 (0.45 - 1.25) RVDd, 2D 2.6 cm (1.9cm - 3.8cm) MV DT 151 ms TAPSE 2 cm MV E' septal 0.08 m/s LA Volume, BP 35 ml (22ml - 52ml) MV E' lateral 0.09 m/s LADs, 2D 3.9 cm (2.7cm - 3.8cm) MV E/E' mean 9.41 LAESV index, BP 20.1 ml/m2 MV E' mean 0.08 m/s Additional Vessels TV/PV Label Value Normal Value Label Value Normal Value AoAsc 2.7 cm PV PGmax 5 mmHg AoRoot, 2D 3.3 cm (1.4cm - 2.6cm) PV Vmax, Caliper 1.08 m/s (0.6m/s - 0.9m/s) Patient: AHSAN PALOMINO Study Date: 11/14/2018 Page 1 of 3 02:28 PM Conclusions (1) Left ventricular systolic ejection fraction was normal (61%) - no LVH - normal wall motion (2) Normal RV size and function (3) Mild to moderate MR (4) Trileaflet aortic valve without sclerosis or insufficiency (5) Trival TR - RVSP was not assessed (6) Aorta was 2.7 cm in diameter (7) No pericardial effusion Findings Left Ventricle: Left ventricle is normal in size. Normal global systolic left ventricular function. EF evaluated by EF (single plane Jordan's). The ejection fraction, measured by Simpsons method, is 61 %. EF range is estimated at 65 % - 70 %. The LV wall thickness is at the upper limits of normal. There are no regional wall motion abnormalities. Left ventricular diastolic function parameters are normal. Right Ventricle: Normal size right ventricle. Right ventricular systolic function is normal. Left Atrium: The left atrium is normal in size. Right Atrium: The right atrium is normal in size. Mitral Valve: Mild to moderate mitral regurgitation. No mitral valve stenosis. There is systolic bowing of the posterior leaflet, but without diagnostic evidence for mitral valve prolapse. Aortic Valve: The aortic valve is structurally normal and trileaflet. No aortic valve regurgitation. There is no aortic stenosis. Tricuspid Valve: Tricuspid valve leaflets are structurally normal. Trivial tricuspid regurgitation. No tricuspid valve stenosis. Pulmonary artery pressure cannot be assessed due to inadequate TR signal. Pulmonic Valve: Pulmonic leaflets are structurally normal. No significant pulmonic valve regurgitation is evident. Aorta: The aortic root size in 2D measures 3.3 cm. The aortic root exhibits normal size. The ascending aorta measures 2.7 cm. Ascending aorta is normal in size. Aorta Measurements AoRoot, 2D is 3.3 cm. IVC: The inferior vena cava is poorly visualized. Pericardium: A pericardial fat pad is present. No pericardial effusion. Exam Details Procedure Ordered: Echo Procedure Status: Routine study Image Quality: Adequate Facility Location: Cardiac Echo 1 (No Signature Object) Patient: AHSAN PALOMINO Study Date: 11/14/2018 Page 2 of 3 02:28 PM Patient: AHSAN PALOMINO Study Date: 11/14/2018 Page 3 of 3 02:28 PM [id number]
[2018-11-14] MEDS ORDERED: LABETALOL HCL 200 MG TAB PO ONE (16:42)
[2018-11-14] MEDS ORDERED: POTASSIUM CL 10 MEQ TAB PO ONE (20:02)
[2018-11-14] MEDS: GABAPENTIN 100 MG CAP PO SCH (20:56)
[2018-11-14] MEDS: oxyCODONE CR 80 MG TAB PO SCH (20:56)
[2018-11-14] MEDS: LABETALOL HCL 100 MG TAB PO SCH (21:10)
[2018-11-14] MEDS: ZOLPIDEM TARTRATE 5 MG TAB PO PRN (22:27)
[2018-11-15] MEDS: ONDANSETRON 4 MG/2 ML VIAL IVP PRN ×2 (05:31→11:48)
[2018-11-15] MEDS: HYDROmorphONE/DILAUDID 1 MG/ML INJ IVP PRN ×6 (05:33→20:22)
[2018-11-15] MEDS: FENTANYL SL SCH ×3 (06:26→20:26)
[2018-11-15] MEDS: PROMETHAZINE HCL 25 MG/ML INJ IVP PRN ×2 (06:43→19:56)
[2018-11-15] MEDS: LOSARTAN POTASSIUM 25 MG TAB PO SCH (07:24)
[2018-11-15] MEDS: oxyCODONE CR 80 MG TAB PO SCH ×2 (07:24→20:47)
[2018-11-15] MEDS: FLUoxetine 20 MG CAP PO SCH (07:24)
[2018-11-15] MEDS: SENNOSIDES/DOCUSATE SODIUM TAB PO SCH ×2 (07:25→20:47)
[2018-11-15] MEDS: LABETALOL HCL 100 MG TAB PO SCH (07:25)
[2018-11-15] MEDS: ACETAMINOPHEN 325 MG TAB PO PRN ×2 (07:50→19:59)
[2018-11-15] MEDS ORDERED: CETIRIZINE 10 MG TAB PO PRN (08:00)
--- NOTE | 2018-11-15 10:41 | CPEKG ---
Test Reason : OPEN Blood Pressure : / mmHG Vent. Rate : 128 BPM Atrial Rate : 129 BPM P-R Int : 151 ms QRS Dur : 078 ms QT Int : 427 ms P-R-T Axes : 062 016 059 degrees QTc Int : 624 ms Sinus tachycardia Prolonged QT interval Confirmed by Jeffry Dudley ([id number]) on 11/15/2018 10:41:03 AM Referred By: Ruiz Castelan Confirmed By:Jeffry Dudley
--- NOTE | 2018-11-15 10:43 | CPEKG ---
Test Reason : OPEN Blood Pressure : / mmHG Vent. Rate : 099 BPM Atrial Rate : 099 BPM P-R Int : 162 ms QRS Dur : 071 ms QT Int : 359 ms P-R-T Axes : 046 017 030 degrees QTc Int : 461 ms Sinus rhythm Confirmed by Jeffry Dudley ([id number]) on 11/15/2018 10:42:43 AM Referred By: Ruiz Castelan Confirmed By:Jeffry Dudley
[2018-11-15] MEDS: HYDROmorphONE/DILAUDID 4 MG TAB PO PRN ×2 (11:56→18:35)
--- NOTE | 2018-11-15 12:52 | GCON ---
[f rep st] CONSULTATION CARDIOLOGY CONSULTATION. DATE OF CONSULTATION: 11/15/2018 REFERRING PHYSICIAN: Joao Reynoso MD REASON FOR CONSULTATION: 1. Hypertension. 2. Elevated troponin. 3. Abnormal ECG. HISTORY: The patient is a 63-year-old woman with a history of widely metastatic colon cancer dating back to 2010. She also has a history of hypertension. Over the 4 to 5 days prior to this admission, she developed increasing problems with nausea and vomiting. Nausea and vomiting have been somewhat chronic issues over the course of her cancer care. However, it recently increased significantly to the point that she was unable to take her antihypertensive medication. She developed some alteration in her mental status /confusion as reported by her daughter. She was brought to the emergency room at [facility] where she was found to be markedly hypertensive with a blood pressure of 202/98. She was then initially admitted to [address] [place] [address] for treatment of her nausea and vomiting. Because of continued difficulty with her blood pressure, she was transferred to the intensive care unit to receive an intravenous nicardipine drip. This helped with her blood pressure and her mental status normalized. On admission, she had a fever with a temperature of 38.3. No specific focus of infection has been identified. She was transitioned to oral labetalol in conjunction with her home dose of losartan. She is now ready to be transferred to PCU. She has no prior cardiac history. She does not report any cardiac symptoms except for mild lower extremity edema. She has had extensive contact with the healthcare system over the past 8 years. She says that no specific cardiac concerns have arisen in the past. PAST MEDICAL HISTORY: Metastatic colon cancer as mentioned above. She also has hypertension, history of herpes zoster, iron deficiency anemia, posterior reversible encephalopathy syndrome, heparin-induced thrombocytopenia, chronic vertigo, and chronic sinusitis. PAST SURGICAL HISTORY: She had resection of her primary cancer in 2010. At that time, a colostomy was also placed. She subsequently had takedown of her colostomy, surgeries for resection of hepatic and adnexal metastases, and a hysterectomy. FAMILY HISTORY: Noncontributory. MEDICATIONS: Her home antihypertensive regimen consisted of amlodipine 10 mg daily and losartan 12.5 mg daily. Currently, she is receiving labetalol 300 mg twice daily and losartan 12.5 mg daily. Her other medications are detailed in the electronic record. ALLERGIES: Heparin and panitumumab. SOCIAL HISTORY: She relocated from the [facility] to [place] in order to be closer to her daughter. She currently lives alone. She has never been a smoker. She does not consume significant amounts of alcohol. REVIEW OF SYSTEMS: Notable for the chronic vertigo and acute on chronic nausea and vomiting that prompted this admission. Otherwise, a 10-point review was negative. PHYSICAL EXAMINATION: VITAL SIGNS: Heart rate in the 70s with sinus rhythm on the monitor. Blood pressure 115/65. O2 saturation 96% on 2 L/minute nasal cannula oxygen. GENERAL: This is a well-developed, well-nourished woman in no acute distress. She is alert and oriented x3. HEAD AND NECK: No scleral icterus. Mucous membranes moist. Carotid pulses 2+ without bruits. There is no JVD. CHEST: Lung travis clear to auscultation. CARDIAC: Regular rate and rhythm with a normal S1 and S2. No murmur or gallop. ABDOMEN: Soft, nontender , nondistended, with normal bowel sounds. EXTREMITIES: 2+ pulses with mild peripheral edema. LABORATORY STUDIES: Sodium 139, potassium 4.3, BUN and creatinine of 16 and 1.0. Troponin levels came back at 0.094, 0.161, and 0.197. A CPK was 891 with an MB fraction of 1.52. ECG: Her admission ECG demonstrated sinus tachycardia at 128 beats per minute. There were no Q-waves or conduction system disturbances. She had diffuse, nonspecific ST-segment depression. Her corrected QT interval was reported as 624 milliseconds. However, I think the computer interpretation of her QT interval incorporated P-waves located in the down slope of her T-waves because of tachycardia. Echocardiogram: An echocardiogram performed yesterday demonstrated normal left ventricular size and systolic function with an ejection fraction of 65% to 70%. There were no regional wall motion abnormalities. She had normal-appearing valvular structures with mild to moderate mitral regurgitation. ASSESSMENT AND PLAN: This is a 63-year-old woman who was admitted with acutely worsening nausea and vomiting which precluded continuation of her antihypertensive medications. She had severely elevated blood pressure on presentation. Hypertension: Her blood pressure has now been controlled with a combination of her home dose of losartan and the addition of labetalol. Would plan to continue these medications. The amlodipine that she was taking at home may have been responsible for her lower extremity edema. Her losartan can certainly be increased if necessary. Elevated troponin: I suspect that her mild troponin elevation was secondary to left ventricular wall strain in the setting of significant hypertension. She has a low cardiovascular risk profile and no symptoms suggestive of angina. Her echocardiogram did not demonstrate any regional variation in contractility that would suggest ischemia. Can plan for an outpatient Lexiscan nuclear stress test. Valvular heart disease: She has mild to moderate mitral regurgitation, which will need to be followed longitudinally. We will plan for repeat echocardiography in 2 years. Prolonged QT interval: I believe the computer misinterpreted her QT interval based on moderate sinus tachycardia. We will repeat a 12-lead ECG to confirm this. /[id number]/MODL MTDD
--- NOTE | 2018-11-15 14:27 | ASMTCMCOM ---
CM Note CM Note Notes: CM met with pt in her room. She is 63 years old and has a history of metastatic colon cancer requiring colectomy (since repaired - no colostomy bag). She presented to the ER on 11/13/18 with abdominal pain, nausea, and vomiting. Has mass in right kidney. Pt has a daughter, Arcelia Guzman, in [place]. Her son-in-law is an duster tender at this hospital. She lives at home with a roommate but says the roommate is not involved in her care. 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 Pt's daughter obtains her meds for her and has been picking up meals at [facility] in [place] for the pt once a week (seven meals), but is no longer able to do so. Pt says she has no one else to pickle sorter the meals for her. CM gave her information about [employer] Whe[employer], and pt says she will look into getting started with them. Pt does not drive at this time, as she states that she is still recovering from a reaction of delusions she believes was caused by a drug trial she was on. She mccloud been getting rides with her daughter and with [employer], but says [employer]'s program of driving her to medical appts for free is now defunct. Pt state that she receives RN and caregiver services through [facility]. CM will continue to follow. D/C: Likely D/C to home with outpatient rehab. Date Signed: 11/15/2018 02:25 PM Electronically Signed By:Mary Allen
--- NOTE | 2018-11-15 14:58 | SOAPPROG ---
CARTER Progress Note Assessment/Plan: E&M colon cancer * Acute nausea and vomiting: This appears to be due to the new narcotics which her insurance insisted she switch to. She is not tolerating this very well at all and there was no clinical need to switch her over. Plan is to move her back to OxyContin which she has tolerated well and has been on a fairly consistent dose for a long time. When her pain is controlled with medication, she can fill the prescription, and she can eat and drink without nausea vomiting , there be no contraindication for her to go home per oncology. * Chronic pain: This is a long-standing problem and she is seen specialist in the past. * Metastatic colon cancer: currently controlled with 5-FU alone. She will follow-up with Dr. Mascorro regarding further management. Subjective: She is feeling much better since she was converted back to OxyContin, which has controlled her pain very well for several years without complications. She ate some breakfast and is feeling well. Objective: Vital Signs Temp Pulse Resp BP Pulse Ox 37.0 C 72 18 105/59 L 95 11/15/18 11:46 11/15/18 11:46 11/15/18 11:46 11/15/18 11:46 11/15/18 11:46 Laboratory Results 11/14/18 04:50 11/15/18 04:40 11/14/18 11/15/18 11/16/18 05:59 05:59 05:59 Intake Total 2308 3562 Output Total 950 Balance 1358 3562 Physical Exam - Physical Exam General Appearance: no apparent distress Abdomen: normal bowel sounds, non-tender, soft ICD10 Worksheet Patient Problems: Problems Problem Status Onset Dehydration Acute Hydronephrosis Acute Metastatic colon cancer in female Acute Nausea and vomiting Acute Abdominal pain Acute Altered mental status, unspecified Acute Colon cancer Acute Constipation Acute Hydrosalpinx Acute Ileus Acute Renal insufficiency Acute Vomiting Acute
--- NOTE | 2018-11-15 16:08 | HOSPPROG ---
Hospitalist Progress Note Assessment/Plan: DIAGNOSES: * Acute Metabolic Encephalopathy, resolving * Intractable Nausea vomiting, multifactorial with vertigo, cancer pain, intra- abdominal mass and other factors involved * Accelerated HTN - likely caused by combination of pain, nausea, and inability to take in her antihypertensives * Fever - uncertain etiology, some wbc elevation but no localizing findings of infection * Acute Hypoxemic Resp Failure * Acute Rhabdomyolysis, mild, ? cause (this is the cause of her high troponin) * Sinus Tachycardia, may be a side effect of hydralazine?, resolved * chronic pain of malignancy on chronic prescribed narcotic ( worse as she was off some of her usual meds at home) * ? Benign Positional Vertigo? / Ongoing persistent vertigo with occasional increase in vertigo with rotational movements but no loss of hearing or pain or tinnitus in the ears -notably the vertigo seemed to start around the time of her PRES episode, and initially was felt due to that but it has not really resolved as the rest of that syndrome resolved * Hypomagnesemia/Hypokalemia likely due to nausea vomiting and poor intake * Moderately Severe R hydronephrosis appears worse than on previous scan/stable L hydronephrosis, caused by her tumor but retains renal function at this time - her pain is not in location c/w this being a cause * Stage IV Colon CA with large abdominal mass and widespread metastases * metabolic acidosis acute due to above issues * hyperglycemia * Hx recent PRES syndrome late 2018 BPs better not yet ideal but out of acute danger Nausea still an issue but feels well enough to try solid diet ? cause of fever, wbc up, rhabdo? PLANS: * Continue management of blood pressure with addition of labetalol * check esr, crp, and repeat cbc w fever and rhabdo * have pharm review meds for anything that would cause rhabdo * continue OxyContin 80 mg twice daily w prn meds and titrate by effect, determine what her home med needs will be * gabapentin added for neuropathic component; may increase dose over time if appropriate * if all going well consider home tomorrow * Once all of her nausea vomiting pain and blood pressure/cardiac issues are stabilized, will consult physical therapy to address her for possible Bartolo maneuvers for possible benign positional vertigo - this could be as outpt SUBJECTIVE: Still with significant nausea Not able to keep anything down Still with abdominal pain which is her usual recent abdominal pain, primarily lower and low left quadrant, continues to have bowel movements normally Does recall having rigors with her fever episode yesterday but none since Does admit that she does have some occasional paresthesias suggesting neuropathic pain Does OBJECTIVE Vitals reviewed: BPs much better overall, still variable, T 37.7 this am otherwise nl; other vitals stable Exam: alert oriented Looks uncomfortable from nausea and pain but not in distress skin warm dry color ok no jaundice resps not labored lungs clear BSs heart regular abd soft nondistended; quite tender particularly across lower abdomen but no rebound, bowel sounds present limbs warm, no edema iv site ok Lab data: normal met panel cpk pending wbc up some at 10 Objective: Vital Signs Temp Pulse Resp BP Pulse Ox 36.8 C 67 18 102/62 90 L 11/15/18 16:02 11/15/18 16:02 11/15/18 16:02 11/15/18 16:02 11/15/18 16:02 Laboratory Results 11/14/18 04:50 11/15/18 04:40 11/14/18 11/15/18 11/16/18 06:59 06:59 06:59 Intake Total 2308 3562 Output Total 950 Balance 1358 3562 - Time Spent With Patient Time Spent with Patient: greater than 35 minutes Time Spent with Patient: Greater than 35 minutes spent on this patients care, greater than 50% of time spent counseling, educating, and coordinating care regarding the above mentioned plan. ICD10 Worksheet Patient Problems: Problems Problem Status Onset Dehydration Acute Hydronephrosis Acute Metastatic colon cancer in female Acute Nausea and vomiting Acute Abdominal pain Acute Altered mental status, unspecified Acute Colon cancer Acute Constipation Acute Hydrosalpinx Acute Ileus Acute Renal insufficiency Acute Vomiting Acute
[2018-11-15 17:19] LABS: CREATINE KINASE 1014 IU/L (0-156)
[2018-11-15] MEDS: CALCIUM CARBONATE 500 MG CHEWABLE TAB PO PRN (19:59)
[2018-11-15] MEDS: GABAPENTIN 100 MG CAP PO SCH (20:44)
[2018-11-15] MEDS: LABETALOL HCL 200 MG TAB PO SCH (20:44)
[2018-11-15] MEDS: ZOLPIDEM TARTRATE 5 MG TAB PO PRN (20:46)
[2018-11-15] MEDS ORDERED: POTASSIUM CL 10 MEQ TAB PO ONE (23:40)
[2018-11-16] MEDS: HYDROmorphONE/DILAUDID 1 MG/ML INJ IVP PRN ×7 (00:11→14:14)
[2018-11-16] MEDS ORDERED: NS 500 ML IV ONE (00:24)
[2018-11-16 06:37] LABS: PLATELET COUNT 186 10^3/uL (150-400)
[2018-11-16 06:44] LABS: CREATINE KINASE 559 IU/L (0-156)
[2018-11-16] MEDS: oxyCODONE CR 80 MG TAB PO SCH (08:46)
[2018-11-16] MEDS: SENNOSIDES/DOCUSATE SODIUM TAB PO SCH (08:46)
[2018-11-16] MEDS: FLUoxetine 20 MG CAP PO SCH (08:47)
[2018-11-16] MEDS: HYDROmorphONE/DILAUDID 4 MG TAB PO PRN (08:54)
[2018-11-16] MEDS: FENTANYL SL SCH ×2 (09:08→13:52)
--- NOTE | 2018-11-16 09:14 | SOAPPROG ---
SOAP Progress Note Assessment/Plan: E&M colon cancer * Acute nausea and vomiting: Due to the new narcotics which her insurance insisted she switch to. She is back OxyContin and tolerating well. A prescription for Oxycontin was approved. There is no oncologic contraindication for her to go home. * Chronic pain: This is a long-standing problem and she is seen specialist in the past. * Metastatic colon cancer: currently controlled with 5-FU alone. She will follow-up with Dr. Mascorro regarding further management. Subjective: No nausea and pain under control with going back on previous oxycontin regimen. Objective: Vital Signs Temp Pulse Resp BP Pulse Ox 37.3 C 60 18 110/50 L 94 11/16/18 08:00 11/16/18 08:00 11/16/18 08:00 11/16/18 08:47 11/16/18 08:00 Laboratory Results 11/16/18 06:05 11/16/18 06:05 11/15/18 11/16/18 11/17/18 05:59 05:59 05:59 Intake Total 3562 1300 Output Total 2 Balance 3562 1298 Physical Exam - Physical Exam General Appearance: no apparent distress Abdomen: normal bowel sounds, non-tender, soft ICD10 Worksheet Patient Problems: Problems Problem Status Onset Dehydration Acute Hydronephrosis Acute Metastatic colon cancer in female Acute Nausea and vomiting Acute Abdominal pain Acute Altered mental status, unspecified Acute Colon cancer Acute Constipation Acute Hydrosalpinx Acute Ileus Acute Renal insufficiency Acute Vomiting Acute
[2018-11-16] MEDS ORDERED: LABETALOL HCL 200 MG TAB PO SCH (10:09)
[2018-11-16] MEDS: LABETALOL HCL 200 MG TAB PO SCH (10:12)
[2018-11-16] MEDS: LOSARTAN POTASSIUM 25 MG TAB PO SCH (10:50)
--- NOTE | 2018-11-16 11:13 | ASMTLACE ---
LACE Length of stay for Answers: 3 days current admission Acuity / Level of Answers: Yes Care: Did the patient have an inpatient admission? Comorbidities - select Answers: Any tumor (including all that apply lymphoma or leukemia) Mild liver or renal disease Opioid dependence / Chronic pain Other Notes: Hep A, hypertension # of Emergency department Answers: 1-2 visits in the last 6 months Score: 16 Date Signed: 11/16/2018 11:12 AM Electronically Signed By:Mary Allen
--- NOTE | 2018-11-16 11:26 | HOSPPROG ---
Hospitalist Progress Note Assessment/Plan: 63 yo F w metastatic colon ca, chronic pain, continuous narcotics here w htn home today see dc summary > 30 minutes Subjective: ready for dc Objective: Vital Signs Temp Pulse Resp BP Pulse Ox 37.3 C 60 18 96/48 L 94 11/16/18 08:00 11/16/18 08:00 11/16/18 08:00 11/16/18 10:50 11/16/18 08:00 Laboratory Results 11/16/18 06:05 11/16/18 06:05 11/15/18 11/16/18 11/17/18 05:59 05:59 05:59 Intake Total 3562 1300 Output Total 2 Balance 3562 1298 - Physical Exam Constitutional: no apparent distress, appears nourished Eyes: PERRL, anicteric sclera Ears, Nose, Mouth, Throat: moist mucous membranes, hearing normal Cardiovascular: regular rate and rhythym, no murmur, rub, or gallop Respiratory: no respiratory distress, no rales or rhonchi Gastrointestinal: normoactive bowel sounds, soft, non-tender abdomen Genitourinary: no bladder fullness, No solares in urethra Skin: warm, normal color Musculoskeletal: full muscle strength ICD10 Worksheet Patient Problems: Problems Problem Status Onset Dehydration Acute Hydronephrosis Acute Metastatic colon cancer in female Acute Nausea and vomiting Acute Abdominal pain Acute Altered mental status, unspecified Acute Colon cancer Acute Constipation Acute Hydrosalpinx Acute Ileus Acute Renal insufficiency Acute Vomiting Acute
[2018-11-16] MEDS ORDERED: POTASSIUM CL 10 MEQ TAB PO ONE (11:33)
[2018-11-16 11:43] VITALS: BP 90/58
--- NOTE | 2018-11-16 12:02 | GDS ---
[f rep st] DISCHARGE SUMMARY DISCHARGE DIAGNOSES: 1. Chronic pain with continuous narcotics. 2. Metastatic colon cancer. 3. Hypertension. 4. Chronic nausea and vomiting. 5. Positive troponin felt secondary to left ventricular wall strain. 6. History of posterior reversible encephalopathy syndrome. Please see admission history and physical by Dr. Ruiz Castelan. The patient presented nausea and vom iting and markedly hypertensive. She had not taken her hypertensives. She had nausea and vomiting. It sounds like she has been having some insurance difficulties getting her OxyContin paid for, and s he has been on a bunch of different medicines, which she theorized has led to her nausea and vomiting . She had an EKG on presentation that did not show any specific ischemic changes. She was seen by [facility] ardiology, who felt that this was subendocardial ischemia and recommended no further workup. She had an echocardiogram with no focal wall motion abnormalities. She has no known history of anginal symp toms. Regarding her hypertension, she was continued on her home medications of amlodipine and losartan, and put on labetalol 300 twice daily and actually, on the day of discharge, her blood pressure is a michelle le bit on the soft side, in the 90s over 50s. She has felt a little heavy, but otherwise okay; those are her words. The patient has been restarted on her OxyContin, and apparently this has now been agreed to be paid f or. I am discharging her home with prescriptions for OxyContin, oral Dilaudid, Atuss, Neurontin. I will leave her blood pressure medicines unchanged, not add labetalol given her current blood pressure readings, and allow her to follow up in Oncology Clinic. /[id number]/MODL
--- NOTE | 2018-11-16 14:24 | ASMTCMCOM ---
CM Note CM Note Notes: Pt discharged to home, to continue RN and caregiver services through [facility]. SARBJIT Kong with [facility], notified. [facility] will give her a ride home. Date Signed: 11/16/2018 02:22 PM Electronically Signed By:Mary Allen
--- NOTE | 2018-11-19 16:10 | PQFORM ---
PHYSICIAN QUERY FORM Needs Your Response This query form is being sent to you to assure this patient record is coded properly. Please respond to the question below: APPRAISER ART QUESTION: Dear Dr. Santos, Hypertensive Encephalopathy was documented in the H&P by Dr. Castelan, Acute Metabolic Encephalopathy was documented in Hospitalist Progress Notes dated 11/14- 11/15, patient was also documented to have had a history of Posterior Reversible Encephalopathy Syndrome. Patient was noted to be hypertensive with mild confusion. After study, can the diagnosis of Encephalopathy be better clarified ? Hypertensive Encephalopathy Metabolic Encephalopathy __X___Posterior Reversible Encephalopathy Syndrome Other more appropriate diagnosis (Please specify) _ Clinically unable to determine Thank you, DERICK Evans HIM/Coding Dept. INSTRUCTIONS FOR RESPONSE: Answer question by clicking on the "Edit Document" button. Move cursor to area below the stars. When complete, hit "Save." Click on the "Sign" button, then click "Sign" again. Type in your PIN and hit "Enter." MTDD
== END 2018-11-16 14:00 | disposition home or self-care (01) | DRG 304 ==
LOC: F1N 15:30 → OBSVTOIN 22:03 → F2N 11-14 00:22 → F1N 11-15 11:39
PROVIDERS: ADMIT Internal Medicine; ATTEND Internal Medicine
DX: I10 Essential (primary) hypertension (principal); I67.83 Posterior reversible encephalopathy syndrome; C78.7 Secondary malignant neoplasm of liver and intrahepatic bile duct; C78.01 Secondary malignant neoplasm of right lung; C78.6 Secondary malignant neoplasm of retroperitoneum and peritoneum; I24.8 Other forms of acute ischemic heart disease; T46.5X6A Underdosing of other antihypertensive drugs, initial encounter; I45.81 Long QT syndrome; G89.3 Neoplasm related pain (acute) (chronic); Z85.038 Personal history of other malignant neoplasm of large intestine
CPT/HCPCS: 82435-PO; 82565-PO; 82947-PO; 84132-PO; 84295-PO; 84520-PO; 85014-ER; 96374; 97116-GP; 97161-GP; J0360; J1170; J1885; J1940; J2060; J2405; J2550; J2765; J3475; J3480; Q9967